=== PATIENT | female | born 1980 | race Caucasian/White ===

== ENCOUNTER 2023-08-19 15:59 | Emergency (ER) | payer OTHER, SELFPAY ==
[2023-08-19 16:05] VITALS: BP 136/85; PULSE 82; RESP 16; TEMP 36.8; O2SAT 99; BMI 34.2
--- NOTE | 2023-08-19 16:09 | ED.GENADUL1 ---
HPI - General Adult General Chief complaint: Upper Respiratory Infection Stated complaint: poss strep throat Time Seen by Provider: 08/19/23 16:01 Source: patient Mode of arrival: walk-in Limitations: no limitations History of Present Illness HPI narrative: [age] year old female presents for sore throat. It started yesterday and she is worried about strep throat. She saw a white spot in her throat. She complains of some swollen lymph nodes as well in her neck. No productive cough. She is not short of breath. Related Data Home Medications Medication Instructions Recorded Confirmed buspirone 7.5 mg tablet 7.5 mg PO DAILY 08/19/23 08/19/23 citalopram 40 mg tablet 40 mg PO DAILY 08/19/23 08/19/23 cyanocobalamin (vitamin B-12) 1,000 mcg PO DAILY 08/19/23 08/19/23 1,000 mcg tablet ergocalciferol (vitamin D2) 1,250 1,250 mcg PO DAILY 08/19/23 08/19/23 mcg (50,000 unit) capsule omeprazole 40 mg capsule,delayed 40 mg PO DAILY 08/19/23 08/19/23 release semaglutide 1 mg/dose (4 mg/3 mL) 1 mg subcut .weekly 08/19/23 08/19/23 subcutaneous pen injector (Ozempic) Previous Rx's Medication Instructions Recorded clindamycin HCl 300 mg capsule 300 mg PO Q6H 10 days #40 caps 08/19/23 Allergies Allergy/AdvReac Type Severity Reaction Status Date / Time amoxicillin AdvReac Mild Verified 08/19/23 16:03 azithromycin [From Zithromax] AdvReac Mild Verified 08/19/23 16:03 Penicillins AdvReac Mild Verified 08/19/23 16:03 Review of Systems ROS Narrative A ten point review of systems is negative except as noted above. PFSH PFSH Social History Smoking status: Former smoker Exam Narrative Exam Narrative: Nurses note and vital signs reviewed and patient is not hypoxic. General: The patient appears well and in no apparent distress. Patient is resting comfortably on cart. Skin: Warm, dry, no pallor noted. There is no rash noted. Head: Normocephalic, atraumatic Eye: Normal conjunctiva, no drainage Ears, Nose, Mouth, and Throat: oral mucosa is moist. Nares patent. exudate present on the right tonsil. No peritonsillar swelling or uvular deviation. She has bilateral cervical adenopathy. Cardiovascular: Regular Rate and Rhythm Respiratory: Patient is in no distress, no accessory muscle use, lungs are clear to auscultation, no wheezing, rales or rhonchi Back: non-tender GI: soft and nontender Musculoskeletal: The patient has no evidence of calf tenderness, no pitting edema, symmetrical pulses noted bilaterally Neurological: A&O, normal speech Psychiatric: Cooperative Constitutional Vital Signs, click to edit/add: Last Vital Signs Temp 98.3 F 08/19/23 16:05 Pulse 82 08/19/23 16:05 Resp 16 08/19/23 16:05 BP 136/85 08/19/23 16:05 Pulse Ox 99 08/19/23 16:05 O2 Del Method Room Air 08/19/23 16:05 Course Vital Signs Vital signs: Vital Signs Temperature 98.3 F 08/19/23 16:05 Pulse Rate 82 08/19/23 16:05 Respiratory Rate 16 08/19/23 16:05 Blood Pressure 136/85 08/19/23 16:05 Pulse Oximetry 99 08/19/23 16:05 Oxygen Delivery Method Room Air 08/19/23 16:05 Temperature 98.3 F 08/19/23 16:05 Pulse Rate 82 08/19/23 16:05 Respiratory Rate 16 08/19/23 16:05 Blood Pressure 136/85 08/19/23 16:05 Pulse Oximetry 99 08/19/23 16:05 Oxygen Delivery Method Room Air 08/19/23 16:05 Medical Decision Making [facility] Narrative Medical decision making narrative: strep test is negative. She's given IM Decadron and prescribed clindamycin. Treatment diagnosis and follow-up were discussed with the patient. there is no clinical suspicion of peritonsillar abscess. Differential Diagnosis Differential Diagnosis: strep throat, peritonsillar abscess, viral pharyngitis Lab Data Lab results reviewed: Yes I reviewed the patient's lab results Labs: Lab Results 08/19/23 Range/Units 16:05 Streptococcus Screen Negative Discharge Plan Discharge Chief Complaint: Upper Respiratory Infection Clinical Impression: Acute tonsillitis Patient Disposition: Home, Self-Care Time of Disposition Decision: 16:25 Condition: Good Mode of Transportation: Private Vehicle Prescriptions / Home Meds: New clindamycin HCl 300 mg capsule 300 mg PO Q6H 10 Days Qty: 40 0RF No Action citalopram 40 mg tablet 40 mg PO DAILY buspirone 7.5 mg tablet 7.5 mg PO DAILY cyanocobalamin (vitamin B-12) 1,000 mcg tablet 1,000 mcg PO DAILY ergocalciferol (vitamin D2) 1,250 mcg (50,000 unit) capsule 1,250 mcg PO DAILY omeprazole 40 mg capsule,delayed release(DR/EC) 40 mg PO DAILY Ozempic 1 mg/dose (4 mg/3 mL) pen injector 1 mg SUBCUT .weekly Instructions: Tonsillitis (ED) Stand Alone Forms: Portal Instructions Referrals: [facility] [Primary Care Provider] - 1 week
[2023-08-19 16:18] LABS: Internal Control Within Normal Limits; Strep A Antigen Screen Negative
[2023-08-19] MEDS: DEXAMETHASONE SOD PHOS 10 MG/ML VIAL IM (16:49)
== END 2023-08-19 16:53 | disposition home or self-care (01) ==
PROVIDERS: Emergency Provider Emergency Medicine
DX: J03.90 Acute tonsillitis, unspecified (principal); Z87.891 Personal history of nicotine dependence; Z79.899 Other long term (current) drug therapy
CPT/HCPCS: 87070; 87880; 96372; 99284; J1100

== ENCOUNTER 2024-06-23 07:54 | Emergency (ER) | payer OTHER, SELFPAY ==
[2024-06-23 08:00] VITALS: BP 138/92; PULSE 81; TEMP 36.9; O2SAT 100; BMI 37.3
--- NOTE | 2024-06-23 08:06 | XR_ITS ---
The [address] [address] Patient Name: CORNELL HERNÁNDEZ MRN: [id number] date: 1980 Sex: F Assigned Patient Location: ED.MAIN Current Patient Location: ED.MAIN Accession/Order Number: [id number] Exam Date: 06/23/2024 08:18 Report Date: 06/23/2024 08:45 At the request of: TK LOONEY Procedure: XR chest 2V EXAMINATION: XR chest 2V HISTORY: cough COMPARISON: No relevant comparison available. TECHNIQUE: PA and lateral FINDINGS: LUNGS: No significant pulmonary parenchymal abnormalities. VASCULATURE: No increased pulmonary vasculature. PLEURA: No pneumothorax, effusion, or pleural thickening. CARDIAC: No cardiomegaly or cardiac silhouette abnormality. MEDIASTINUM: No visible mass or adenopathy. BONES: No fracture or visible bone lesion. OTHER: Negative. XR/XR chest 2V IMPRESSION: No acute cardiopulmonary process Electronically authenticated by: MEI GILES Date: 06/23/2024 08:45
--- OUTSIDE RECORDS SUMMARY | 2024-06-23 08:22 | XMS_ITS | CCD ---
Author Organization [facility] Inform ion [facility] Care Team Providers Care Plant And Instrument Engineer Name Role Phone FAMILY, HEALTH SERVICES Primary Care Unavaila ble PAY, DR VENTURA Attending Unavailable PAY, DR VENTURA Admitting Unavailable PAY, DR VENTURA Consulting Unavailable MISC, DR SOLORZANO Attending Unavailable MISC, DR SOLORZANO Admitting Unavailable MISC, DR SOLORZANO Consulting Unavailable [facility] Primary Care Unavaila ble MISC, DR SOLORZANO Admitting Unavailable MISC, DR SOLORZANO Consulting Unavailable [facility] Primary Care Unavaila ble MISC, DR SOLORZANO Attending Unavailable [facility] Primary Care Unavaila ble CELINA, WANG ESPINOZA Consulting Unavailable PAY, DR VENTURA Attending Unavailable PAY, DR VENTURA Admitting Unavailable Osvaldo, SEWING PATTERN LAYOUT TECHNICIAN-C Shady Chatterjee Attending Provider NON STAFF Primary Care Provider Unavailabl e DO Aryan Borges Attending Provider [phone] [facility], Services Primary Care Provider MD Jesus Reeder Attending Provider [facility] Primary Care Provider [phone] DO Washington Khan Attending Provider DO Aryan Borges Other Provider Jesus Reeder Attending Unavailable [facility] Primary Care Unavaila Jesus Sierra Admitting Unavailable Aryan Borges Consulting Unavailable [facility] Primary Care Unavaila ble [facility], Froylan Admitting Unavailable [facility], Froylan Attending Unavailable Aryan Borges Consulting Unavailable [facility] Primary Care Unavaila ble Washington Khan Admitting Unavailable Washington Khan Attending Unavailable Allergies Allergy Classification Reported Allergen(s) Allergy Type Date of Onset Reaction(s) Facility (1 source) Amoxicillin Drug Allergy [facility] (1 source) Azithromycin Drug Allergy [facility] (1 source) Penicillin Drug Allergy [facility] (3 sources) Azithromycin; Translations: [azithromycin] Drug Allergy 3 Difficulty Breathing, Difficulty Breathing, shortness of breath [facility] (3 sources) Penicillins; Translations: [Penicillins] Allergy to substance 3 [facility] (2 sources) Penicillin; Translations: [penicillin G] Drug Allergy 1 [facility] Medications Current Medications Medication Drug Class(es) Dates Sig (Normalized) Sig (Original) busPIRone hydrochloride 7.5 mg oral tablet (2 sources) Start: 05-14-2023 take 7.5 mg by mouth twice daily Buspirone Active 7.5 MG PO Twice daily May 14, 2023 12:00am citalopram 40 mg oral tablet (2 sources) Serotonin Reuptake Inhibitor Start: 05-14-2023 take 40 mg by mouth once daily Citalopram Active 40 MG PO Daily May 14, 2023 12:00am ergocalciferol 1.25 mg oral capsule (2 sources) Provitamin D2 Compound Start: 05-14-2023 take 1250 ug by mouth every week Ergocalciferol (Vitamin D2) Active 1250 MCG PO every week May 14, 2023 12:00am ibuprofen 800 mg oral tablet (2 sources) Nonsteroidal Anti-inflammatory Drug Start: 05-14-2023 take 800 mg by mouth three times daily Ibuprofen Active 800 MG PO Three times daily May 14, 2023 12:00am Multivitamin preparation (2 sources) Start: 05-14-2023 take 1 tablet by mouth once daily Multivitamin Active 1 TAB PO Daily May 14, 2023 12:00am omeprazole 40 mg delayed release oral capsule (2 sources) Proton Pump Inhibitor Start: 05-14-2023 take 40 mg by mouth once daily Omeprazole Active 40 MG PO Daily May 14, 2023 12:00am Semaglutide (2 sources) Start: 05-14-2023 inject 1 mg by subcutaneous injection every week Semaglutide (Ozempic) 1 mg/dose (4 mg/3 mL) pen injector Active 1 MG SUBCUT every week May 14, 2023 12:00am vitamin b12 1 mg oral tablet (2 sources) Vitamin B12 Start: 05-14-2023 take 1000 ug by mouth once daily Cyanocobalamin (Vitamin B-12) Active 1000 MCG PO Daily May 14, 2023 12:00am Problems Active Problems Problem Classification Problem Date Documented Da te Episodic/Chronic Diabetes mellitus without complication (2 sources) Type 2 diabetes mellitus without complications; Translations: [TYPE 2 DM WITHOUT COMPLICATIONS] Onset: 1 Chronic Mood disorders (1 source) Major depressive disorder, single episode, unspecified; Translations: [JANEL DEPRESS D/O SINGLE EPIS UNS] Onset: 1 Chronic Other aftercare (1 source) 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; Translations: [OTH VACUUM SPINDLE SANDER CURRENT DRUG THERAPY] Onset: 2 Episodic Other connective tissue disease (3 sources) Pain in right thigh; Translations: [PAIN IN RIGHT THIGH] Onset: 2 Episodic Other nutritional; endocrine; and metabolic disorders (1 source) Abnormal weight gain; Translations: [Abnormal weight gain] Onset: 4 Episodic Phlebitis; thrombophlebitis and thromboembolism (1 source) Phlebitis and thrombophlebitis of superficial vessels of right lower extremity; Translations: [PHLEBITIS AND TP SUP VES RT LOW EXT] Onset: 2 Episodic Substance-related disorders (1 source) Nicotine dependence, cigarettes, uncomplicated; Translations: [NICOTINE DEPEND CIGARETTES UNCOMP] Onset: 2 Chronic Unclassified (3 sources) CONTACT W/AND (SUSP) EXPOS COVID-19; Translations: [CONTACT W/AND (SUSP) EXPOS COVID-19] Onset: 1 Unclassified (1 source) Diarrhea, unspecified; Translations: [Diarrhea, unspecified] Onset: 3 Unclassified (1 source) Encounter for screening for cardiovascular disorders; Translations: [Encounter for screening for cardiovascular disorders] Onset: 3 Past or Other Problems Problem Classification Problem Date Documented Da te Episodic/Chronic Disorders of teeth and jaw (5 sources) Jaw pain; Translations: [Periapical abscess without sinus] Onset: 03-03-2021 Episodic Other aftercare (1 source) 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; Translations: [VACUUM SPINDLE SANDER CURRENT USE OF INSULIN] Onset: 03-07-2021 Episodic Residual codes; unclassified (1 source) Acquired absence of other specified parts of digestive tract; Translations: [ACQ ABSENCE OTH PART DIGESTV TRACT] Onset: 03-07-2021 Episodic Residual codes; unclassified (1 source) Acquired absence of both cervix and uterus; Translations: [ACQUIRED ABSENCE BOTH CERVIX AND UTERUS] Onset: 03-07-2021 Episodic Unclassified (1 source) CONTACT W/AND (SUSP) EXPOS COVID-19; Translations: [CONTACT W/AND (SUSP) EXPOS COVID-19] Onset: 07-04-2021 Results Test Name Value Interpretation Reference Range Facility Alanine aminotransferase [En zymatic activity/volume] in Serum or PlasmaOrdered By: Aryan Borges on 12-18-2023 ALT [Catalytic activity/Vol] 16 U/L 7-52 [facility] Albumin [Mass/volume] in Ser um or Plasma by Bromocresol green (BCG) dye binding methoOrdered By: Aryan Borges on 12-18-2023 Albumin BCG dye [Mass/Vol] 4.4 g/dL 3.5-5.7 [facility] Alkaline phosphatase [Enzyma tic activity/volume] in Serum or PlasmaOrdered By: Aryan Borges on 12-18-2023 ALP [Catalytic activity/Vol] 60 U/L 34-104 [facility] Aspartate aminotransferase [ Enzymatic activity/volume] in Serum or PlasmaOrdered By: Aryan Borges on 12-18-2023 AST [Catalytic activity/Vol] 16 U/L 13-39 [facility] Bilirubin.total [Mass/volume ] in Serum or PlasmaOrdered By: Aryan Borges on 12-18-2023 Bilirubin [Mass/Vol] 0.6 mg/dL 0.3-1.0 [facility] Calcium [Mass/volume] in Ser um or PlasmaOrdered By: Aryan Borges on 12-18-2023 Calcium [Mass/Vol] 9.4 mg/dL 8.6-10.3 [facility] Carbon dioxide, total [Moles /volume] in Serum or PlasmaOrdered By: Aryan Borges on 12-18-2023 CO2 [Moles/Vol] 27.4 mmol/L 21.0-31.0 [facility] Chloride [Moles/volume] in S roseline or PlasmaOrdered By: Aryan Borges on 12-18-2023 Chloride [Moles/Vol] 105 mmol/L 98-107 [facility] Cholesterol [Mass/volume] in Serum or PlasmaOrdered By: Aryan Borges on 12-18-2023 Cholesterol [Mass/Vol] 194 mg/dL 140-200 [facility] Comment on above: Chol less than 200 m g/dl low riskChol 201-239 mg/dl borderline riskChol 240 mg/dl and greater high risk Cholesterol in LDL Calc [Mas s/Vol]Ordered By: Aryan Borges on 12-18-2023 Cholesterol in LDL [Mass/Vol] 124 mg/dL 0-100 [facility] Comment on above: LDL ATP III CLASSIFI CATIONLDL less than 100 mg/dL OptimalLDL 100-129 mg/dL Near or above optimalLDL 130-159 mg/dL Borderline highLDL 160-189 mg/dL HighLDL greater than 189 mg/dL Very high Cholesterol in LDL [Mass/vol ume] in Serum or PlasmaOrdered By: Aryan Borges on 12-18-2023 Cholesterol in LDL [Mass/Vol] 142 mg/dL 0-100 [facility] Comment on above: LDL ATP III CLASSIFI CATIONLDL less than 100 mg/dL OptimalLDL 100-129 mg/dL Near or above optimalLDL 130-159 mg/dL Borderline highLDL 160-189 mg/dL HighLDL greater than 189 mg/dL Very high Cholesterol in VLDL Calc [Ma ss/Vol]Ordered By: Aryan Borges on 12-18-2023 Cholesterol in VLDL [Mass/Vol] 18 mg/dL [facility] Comprehensive Metabolic Pane colby 12-18-2023 Albumin [Mass/Vol] 4.4 g/dL Normal 3.5-5.7 [facility] Comment on above: Order Comment: Alyo n for Exam Type 2 diabetes mellitus without complications Reason for Exam Weight gain Performed By: #### T 4F, LIPID, LDLD, CMP, TSH3 wRFLX #### [facility] [address] Albumin/Globulin [Mass ratio] 1.6 {ratio} Normal [facility] Comment on above: Order Comment: Reaso n for Exam Type 2 diabetes mellitus without complications Reason for Exam Weight gain Performed By: #### T 4F, LIPID, LDLD, CMP, TSH3 wRFLX #### [facility] [address] [place] [id number] [facility] ALP [Catalytic activity/Vol] 60 U/L Normal 34-104 [facility] Comment on above: Order Comment: Reaso n for Exam Type 2 diabetes mellitus without complications Reason for Exam Weight gain Performed By: #### T 4F, LIPID, LDLD, CMP, TSH3 wRFLX #### [facility] [address] ALT [Catalytic activity/Vol] 16 U/L Normal 7-52 [facility] Comment on above: Order Comment: Reaso n for Exam Type 2 diabetes mellitus without complications Reason for Exam Weight gain Performed By: #### T 4F, LIPID, LDLD, CMP, TSH3 wRFLX #### [facility] [address] [place] [address] Anion gap [Moles/Vol] 10.1 mmol/L Normal 6.0-15.0 [facility] Comment on above: Order Comment: Reaso n for Exam Type 2 diabetes mellitus without complications Reason for Exam Weight gain Performed By: #### T 4F, LIPID, LDLD, CMP, TSH3 wRFLX #### [facility] [address] [place], [place] [id number] [place] AST [Catalytic activity/Vol] 16 U/L Normal 13-39 [facility] Comment on above: Order Comment: Reaso n for Exam Type 2 diabetes mellitus without complications Reason for Exam Weight gain Performed By: #### T 4F, LIPID, LDLD, CMP, TSH3 wRFLX #### [facility] [address] [place], [place] [id number] [place] Bilirubin [Mass/Vol] 0.6 mg/dL Normal 0.3-1.0 [facility] Comment on above: Order Comment: Reaso n for Exam Type 2 diabetes mellitus without complications Reason for Exam Weight gain Performed By: #### T 4F, LIPID, LDLD, CMP, TSH3 wRFLX #### [facility] [address] [place] [address] [place] Calcium [Mass/Vol] 9.4 mg/dL Normal 8.6-10.3 [facility] Comment on above: Order Comment: Reaso n for Exam Type 2 diabetes mellitus without complications Reason for Exam Weight gain Performed By: #### T 4F, LIPID, LDLD, CMP, TSH3 wRFLX #### [facility] [address] Chloride [Moles/Vol] 105 mmol/L Normal 98-107 [facility] Comment on above: Order Comment: Reaso n for Exam Type 2 diabetes mellitus without complications Reason for Exam Weight gain Performed By: #### T 4F, LIPID, LDLD, CMP, TSH3 wRFLX #### [address] CO2 [Moles/Vol] 27.4 mmol/L Normal 21.0-31.0 [facility] Comment on above: Order Comment: Reaso n for Exam Type 2 diabetes mellitus without complications Reason for Exam Weight gain Performed By: #### T 4F, LIPID, LDLD, CMP, TSH3 wRFLX #### [facility] [address] [place] [address] Creatinine [Mass/Vol] 0.74 mg/dL Normal 0.60-1.20 [facility] Comment on above: Order Comment: Reaso n for Exam Type 2 diabetes mellitus without complications Reason for Exam Weight gain Performed By: #### T 4F, LIPID, LDLD, CMP, TSH3 wRFLX #### [place] [address] [place] GFR/1.73 sq M.predicted MDRD (S/P/Bld) [Vol rate/Area] mL/min/{1.73_m2} Normal [facility] Comment on above: Order Comment: Reaso n for Exam Type 2 diabetes mellitus without complications Reason for Exam Weight gain Performed By: #### T 4F, LIPID, LDLD, CMP, TSH3 wRFLX #### [facility] [address] [place] [id number] [place] Globulin (S) [Mass/Vol] 2.8 g/dL Normal T he [facility] Comment on above: Order Comment: Reaso n for Exam Type 2 diabetes mellitus without complications Reason for Exam Weight gain Performed By: #### T 4F, LIPID, LDLD, CMP, TSH3 wRFLX #### [facility] [address] [place] [id number] [facility] Glucose [Mass/Vol] 91 mg/dL Normal 70-100 [facility] Comment on above: Order Comment: Reaso n for Exam Type 2 diabetes mellitus without complications Reason for Exam Weight gain Result Comment: [place] Glucose Reference Range is dependent on time and content of last meal. Glucose of more than 200 mg/dL in a nonstressed, ambulatory subject supports the diagnosis of Diabetes Mellitus. ADA recommended reference range Performed By: #### T 4F, LIPID, LDLD, CMP, TSH3 wRFLX #### [facility] [address] [place] [address] [place] Potassium [Moles/Vol] 4.5 mmol/L Normal 3.5-5.1 [facility] Comment on above: Order Comment: Reaso n for Exam Type 2 diabetes mellitus without complications Reason for Exam Weight gain Performed By: #### T 4F, LIPID, LDLD, CMP, TSH3 wRFLX #### [facility] [address] [place] [id number] [place] Protein [Mass/Vol] 7.2 g/dL Normal 6.4-8.9 [facility] Comment on above: Order Comment: Reaso n for Exam Type 2 diabetes mellitus without complications Reason for Exam Weight gain Performed By: #### T 4F, LIPID, LDLD, CMP, TSH3 wRFLX #### [facility] [address] [place] [id number] [place] Sodium [Moles/Vol] 138 mmol/L Normal 136-145 [facility] Comment on above: Order Comment: Reaso n for Exam Type 2 diabetes mellitus without complications Reason for Exam Weight gain Performed By: #### T 4F, LIPID, LDLD, CMP, TSH3 wRFLX #### [facility] [address] [place] [id number] [place] Urea nitrogen [Mass/Vol] 23 mg/dL Normal 7-25 [facility] Comment on above: Order Comment: Reaso n for Exam Type 2 diabetes mellitus without complications Reason for Exam Weight gain Performed By: #### T 4F, LIPID, LDLD, CMP, TSH3 wRFLX #### [facility] [address] Creatinine [Mass/volume] in Serum or PlasmaOrdered By: Aryan Borges on 12-18-2023 Creatinine [Mass/Vol] 0.74 mg/dL 0.60-1.20 [facility] Free T4 (Free Thyroxine)on 0 12-18-2023 Free T4 [Mass/Vol] 0.53 ng/dL Low 0.61-1.12 [facility] Comment on above: Order Comment: Reaso n for Exam Type 2 diabetes mellitus without complications Reason for Exam Weight gain Performed By: #### C MP, CBC, LDLD, LIPID, ESR, CRP #### [facility] [address] [place] [id number] [facility] Globulin Calc (S) [Mass/Vol] Ordered By: Aryan Borges on 12-18-2023 Globulin (S) [Mass/Vol] 2.8 g/dL [facility] Glucose [Mass/volume] in Ser um or PlasmaOrdered By: Aryan Borges on 12-18-2023 Glucose [Mass/Vol] 91 mg/dL 70-100 [facility] Comment on above: ADA recommended refe rence rangeRandom Glucose Reference Range is dependent on time and content of last meal. Glucose of more than 200 mg/dL in a nonstressed, ambulatory subject supports the diagnosis of Diabetes Mellitus. LDL Cholesterol Measuredon 0 12-18-2023 LDL Cholesterol Measured 142 mg/dL High 0-100 [facility] Comment on above: Order Comment: Reaso n for Exam Type 2 diabetes mellitus without complications Reason for Exam Weight gain Result Comment: LDL ATP III CLASSIFICATION LDL less than 100 mg/dL Optimal LDL 100-129 mg/dL Near or above optimal LDL 130-159 mg/dL Borderline high LDL 160-189 mg/dL High LDL greater than 189 mg/dL Very high Performed By: #### C MP, CBC, LDLD, LIPID, ESR, CRP #### [facility] [address] [place] [id number] [facility] Lipid Panelon 12-18-2023 Cholesterol [Mass/Vol] 194 mg/dL Normal 140-200 [facility] Comment on above: Order Comment: Reaso n for Exam Type 2 diabetes mellitus without complications Reason for Exam Weight gain Result Comment: Chol less than 200 mg/dl low risk Chol 201-239 mg/dl borderline risk Chol 240 mg/dl and greater high risk Performed By: #### T 4F, LIPID, LDLD, CMP, TSH3 wRFLX #### [facility] [address] [place] [address] [place] Cholesterol in HDL [Mass/Vol] 52 mg/dL Normal 23-92 [facility] Comment on above: Order Comment: Reaso n for Exam Type 2 diabetes mellitus without complications Reason for Exam Weight gain Result Comment: HDL CHOL ATP-III CLASSIFICATION Cardiovascular Risk HDL > or equal to 60 mg/dL LOW HDL < 40 mg/dL HIGH Performed By: #### T 4F, LIPID, LDLD, CMP, TSH3 wRFLX #### [facility] [address] [place] [address] [facility] Cholesterol.total/Choles terol in HDL [Mass ratio] 3.7 {ratio} Normal <5.0 [facility] Comment on above: Order Comment: Reaso n for Exam Type 2 diabetes mellitus without complications Reason for Exam Weight gain Performed By: #### T 4F, LIPID, LDLD, CMP, TSH3 wRFLX #### [facility] [address] [place] [id number] [facility] LDL Cholesterol,Calculated 124 mg/dL High 0-100 [facility] Comment on above: Order Comment: Reaso n for Exam Type 2 diabetes mellitus without complications Reason for Exam Weight gain Result Comment: LDL ATP III CLASSIFICATION LDL less than 100 mg/dL Optimal LDL 100-129 mg/dL Near or above optimal LDL 130-159 mg/dL Borderline high LDL 160-189 mg/dL High LDL greater than 189 mg/dL Very high Performed By: #### T 4F, LIPID, LDLD, CMP, TSH3 wRFLX #### [facility] [address] [place] [address] [place] Triglyceride w/Reflex 92 mg/dL Normal 0-149 [facility] Comment on above: Order Comment: Reaso n for Exam Type 2 diabetes mellitus without complications Reason for Exam Weight gain Result Comment: TRIG ATP III CLASSIFICATION TRIG less than 150 mg/dL Normal TRIG 150-199 mg/dL Borderline high TRIG 200-500 mg/dL High TRIG greater than 500 mg/dL Very high Standard traceable to the Center for Disease Conrtrol and Prevention (CDC) test method. Performed By: #### T 4F, LIPID, LDLD, CMP, TSH3 wRFLX #### [facility] [address] VLDL CHOLESTEROL 18 mg/dL Normal [facility] Comment on above: Order Comment: Reaso n for Exam Type 2 diabetes mellitus without complications Reason for Exam Weight gain Performed By: #### T 4F, LIPID, LDLD, CMP, TSH3 wRFLX #### [facility] [address] No Panel InformationOrdered By: Aryan Borges on 12-18-2023 Estimated GFR (CKD-EPI) > 60.0 mL/Min [facility] Creatinine Clearance (Chem N/A [facility] Potassium [Moles/volume] in Serum or PlasmaOrdered By: Aryan Borges on 12-18-2023 Potassium [Moles/Vol] 4.5 mmol/L 3.5-5.1 [facility] Protein [Mass/volume] in Ser um or PlasmaOrdered By: Aryan Borges on 12-18-2023 Protein [Mass/Vol] 7.2 g/dL 6.4-8.9 [facility] Serum or plasma albumin/glob ulin mass ratioOrdered By: Aryan Borges on 12-18-2023 Albumin/Globulin [Mass ratio] 1.6 {ratio} [facility] Serum or plasma anion gap de terminationOrdered By: Aryan Borges on 12-18-2023 Anion gap [Moles/Vol] 10.1 mmol/L 6.0-15.0 [facility] Serum or plasma high density lipoprotein (HDL) cholesterol measurementOrdered By: Aryan Borges on 12-18-2023 Cholesterol in HDL [Mass/Vol] 52 mg/dL - [facility] Comment on above: HDL CHOL ATP-III CLA SSIFICATION Cardiovascular RiskHDL > or equal to 60 mg/dL LOWHDL < 40 mg/dL HIGH Serum or plasma total choles terol/high density lipoprotein (HDL) cholesterol mass ratOrdered By: Aryan Borges on 12-18-2023 Cholesterol.total/Choles terol in HDL [Mass ratio] 3.7 {ratio} <5.0 [facility] Sodium [Moles/volume] in Ser um or PlasmaOrdered By: Aryan Borges on 12-18-2023 Sodium [Moles/Vol] 138 mmol/L 136-145 [facility] Thyroid Stim Hormone w/Rflxo n 12-18-2023 Thyroid Stim Hormone w/Rflx 0.93 u[iU]/mL Normal 0.45-5.33 [facility] Comment on above: Order Comment: Reaso n for Exam Type 2 diabetes mellitus without complications Reason for Exam Weight gain Result Comment: PERF ORMED BY: [place] [address] PATHOLOGIST [employer] SAMARA KIM M.D. Performed By: #### C MP, CBC, LDLD, LIPID, ESR, CRP #### [address] Thyrotropin [Units/volume] i n Serum or PlasmaOrdered By: Aryan Borges on 12-18-2023 TSH Qn 0.93 m[IU]/L 0.45-5.33 [facility] Thyroxine (T4) free [Mass/vo lume] in Serum or PlasmaOrdered By: Aryan Borges on 12-18-2023 Free T4 [Mass/Vol] 0.53 ng/dL 0.61-1.12 [facility] Triglyceride [Mass/volume] i n Serum or PlasmaOrdered By: Aryan Borges on 12-18-2023 Triglyceride [Mass/Vol] 92 mg/dL 0-149 [facility] Comment on above: TRIG ATP III CLASSIF ICATIONTRIG less than 150 mg/dL NormalTRIG 150-199 mg/dL Borderline highTRIG 200-500 mg/dL High TRIG greater than 500 mg/dL Very highStandard traceable to the Center for Disease Conrtrol and Prevention (CDC) test method. Urea nitrogen [Mass/volume] in Serum or PlasmaOrdered By: Aryan Borges on 12-18-2023 Urea nitrogen [Mass/Vol] 23 mg/dL 02-12 [facility] Glucose Glucometer (BldC) [M ass/Vol]Ordered By: Jesus Reeder on 05-15-2023 Glucose [Mass/Vol] 85 mg/dL [facility] Comment on above: Random Glucose Refer ence Range is dependent on time and content of last meal. Glucose of more than 200 mg/dL in a nonstressed, ambulatory subject supports the diagnosis of Diabetes Mellitus. Glucose Poct Glucometerson 1 Glucose [Mass/Vol] 85 mg/dL Normal [facility] Comment on above: Result Comment: [place] om Glucose Reference Range is dependent on time and content of last meal. Glucose of more than 200 mg/dL in a nonstressed, ambulatory subject supports the diagnosis of Diabetes Mellitus. PERFORMED BY: [facility] [address] [place] [address] PATHOLOGIST [employer] SAMARA KIM M.D. Performed By: #### G AALIYAH #### Point of Care testing , [place] 05-15-2023 L -- ---- Specimen: [id number] Received: 05/15/23 Status: FELIZ Feldman Num: [id number] Spec Type: Surgical Subm Dr: Jesus Reeder MD Tissues: A Colon Biopsy (RANDOM COLON BX) Procedures: HE/2, Gross/Micro L4 ---- Age/ Patient Sex Location Account Attending Physician ---- ChikiSilvia M /F [id number] Jesus Reeder MD ---- SPEC NUM: [id number] RECD: 05/15/23 STATUS: FELIZ KASIE NUM: [id number] JENNA: 05/15/23 DR: Jesus Reeder MD ENTERED: 05/15/23 [facility] DR: ADELA TYPE: Surgical DEPT: S ORDERED: HE/2, Gross/Micro L4 ORDERED: HE/2, Gross/Micro L4 Pathological Diagnosis Random colon biopsy: - Colonic mucosa with adequately preserved mucosal glandular architecture except mild stromal edema, otherwise also without any abnormal stromal chronic inflammation, or any other specific or diagnostic abnormality identified in both fragments Clinical Information Family history of Crohn's, rule out microscopic colitis Gross Description Received in formalin labeled with the patient's name, date of and random colon biopsy are two correa tissues measuring 0.3 x 0.1 x 0.1 cm and 0.6 x 0.2 x 0.1 cm. Entirely submitted in one cassette labeled A1. Microscopic Description Two H E slides reviewed. The microscopic examination confirms the diagnosis. CPT Codes 65088 ---- ---- Specimen: [id number] Received: 05/15/23 Status: FELIZ Feldman Num: [id number] Spec Type: Surgical Subm Dr: Jesus Reeder MD Tissues: A Colon Biopsy (RANDOM COLON BX) Procedures: HE/2, Gross/Micro L4 ---- Patient: Silvia Monet [id number] (Continued) ---- Signed (signature on file) Geoffrey-Kieran Lyon MD 05/16/23 1814 Normal [facility] Alanine aminotransferase [En zymatic activity/volume] in Serum or PlasmaOrdered By: Aryan Borges on 01-29-2023 ALT [Catalytic activity/Vol] 16 U/L 7-52 [facility] Albumin [Mass/volume] in Ser um or Plasma by Bromocresol green (BCG) dye binding methoOrdered By: Aryan Borges on 01-29-2023 Albumin BCG dye [Mass/Vol] 4.2 g/dL 3.5-5.7 [facility] Alkaline phosphatase [Enzyma tic activity/volume] in Serum or PlasmaOrdered By: Aryan Borges on 01-29-2023 ALP [Catalytic activity/Vol] 66 U/L 34-104 [facility] Aspartate aminotransferase [ Enzymatic activity/volume] in Serum or PlasmaOrdered By: Aryan Borges on 01-29-2023 AST [Catalytic activity/Vol] 19 U/L 13-39 [facility] Basophils Auto (Bld) [#/Vol] Ordered By: Aryan Borges on 01-29-2023 Basophils (Bld) [#/Vol] 0.1 10*3/uL 0.0-0.2 [facility] Basophils/100 WBC Auto (Bld) Ordered By: Aryan Borges on 01-29-2023 Basophils/100 WBC (Bld) 0.8 % . [facility] Bilirubin.total [Mass/volume ] in Serum or PlasmaOrdered By: Aryan Borges on 01-29-2023 Bilirubin [Mass/Vol] 0.6 mg/dL 0.3-1.0 [facility] C reactive protein [Mass/vol ume] in Serum or PlasmaOrdered By: Aryan Borges on 01-29-2023 CRP [Mass/Vol] 0.5 mg/dL 0.0-0.5 [facility] C-Reactive Proteinon 023 C-Reactive Protein 0.5 mg/dL Normal 0.0-0.5 [facility] Comment on above: Performed By: #### C MP, CBC, LDLD, LIPID, ESR, CRP #### [facility] [address] Calcium [Mass/volume] in Ser um or PlasmaOrdered By: Aryan Borges on 01-29-2023 Calcium [Mass/Vol] 9.2 mg/dL 8.6-10.3 [facility] Carbon dioxide, total [Moles /volume] in Serum or PlasmaOrdered By: Aryan Borges on 01-29-2023 CO2 [Moles/Vol] 29.0 mmol/L 21.0-31.0 [facility] Chloride [Moles/volume] in S roseline or PlasmaOrdered By: Aryan Borges on 01-29-2023 Chloride [Moles/Vol] 105 mmol/L 98-107 [facility] Cholesterol [Mass/volume] in Serum or PlasmaOrdered By: Aryan Borges on 01-29-2023 Cholesterol [Mass/Vol] 173 mg/dL 140-200 [facility] Comment on above: Chol less than 200 m g/dl low riskChol 201-239 mg/dl borderline riskChol 240 mg/dl and greater high risk Cholesterol in LDL Calc [Mas s/Vol]Ordered By: Aryan Borges on 01-29-2023 Cholesterol in LDL [Mass/Vol] 111 mg/dL 0-100 [facility] Comment on above: LDL ATP III CLASSIFI CATIONLDL less than 100 mg/dL OptimalLDL 100-129 mg/dL Near or above optimalLDL 130-159 mg/dL Borderline highLDL 160-189 mg/dL HighLDL greater than 189 mg/dL Very high Cholesterol in LDL [Mass/vol ume] in Serum or PlasmaOrdered By: Aryan Borges on 01-29-2023 Cholesterol in LDL [Mass/Vol] 120 mg/dL 0-100 [facility] Comment on above: LDL ATP III CLASSIFI CATIONLDL less than 100 mg/dL OptimalLDL 100-129 mg/dL Near or above optimalLDL 130-159 mg/dL Borderline highLDL 160-189 mg/dL HighLDL greater than 189 mg/dL Very high Cholesterol in VLDL Calc [Ma ss/Vol]Ordered By: Aryan Borges on 01-29-2023 Cholesterol in VLDL [Mass/Vol] 18 mg/dL [facility] Complete Blood Count Auto Di ffon 01-29-2023 Basophils (Bld) [#/Vol] 0.1 10*3/uL Normal 0.0-0.2 [facility] Comment on above: Performed By: #### C MP, CBC, LDLD, LIPID, ESR, CRP #### [address] Basophils/100 WBC (Bld) 0.8 % Normal . T [facility] Comment on above: Performed By: #### C MP, CBC, LDLD, LIPID, ESR, CRP #### [address] Eosinophils (Bld) [#/Vol] 0.2 10*3/uL Normal 0.0-0.45 [facility] Comment on above: Performed By: #### C MP, CBC, LDLD, LIPID, ESR, CRP #### [address] Eosinophils/100 WBC (Bld) 1.9 % Normal . [facility] Comment on above: Performed By: #### C MP, CBC, LDLD, LIPID, ESR, CRP #### [address] Erythrocyte distribution width (RBC) [Ratio] 13.0 % Normal 11.9-15.3 [facility] Comment on above: Performed By: #### C MP, CBC, LDLD, LIPID, ESR, CRP #### [address] Hematocrit (Bld) [Volume fraction] 39.2 % Normal 34.0-46.4 [facility] Comment on above: Performed By: #### C MP, CBC, LDLD, LIPID, ESR, CRP #### [address] Hemoglobin (Bld) [Mass/Vol] 13.3 g/dL Normal 11.8-15.4 [facility] Comment on above: Performed By: #### C MP, CBC, LDLD, LIPID, ESR, CRP #### [place] [address] [place] Lymphocytes (Bld) [#/Vol] 3.4 10*3/uL Normal 1.00-4.8 [facility] Comment on above: Performed By: #### C MP, CBC, LDLD, LIPID, ESR, CRP #### [place] [address] [place] Lymphocytes/100 WBC (Bld) 41.5 % Normal . [facility] Comment on above: Performed By: #### C MP, CBC, LDLD, LIPID, ESR, CRP #### [address] MCH (RBC) [Entitic mass] 30.1 pg Normal 24.7-34.3 [facility] Comment on above: Performed By: #### C MP, CBC, LDLD, LIPID, ESR, CRP #### [address] MCV (RBC) [Entitic vol] 88.6 fL Normal 80-100 [facility] Comment on above: Performed By: #### C MP, CBC, LDLD, LIPID, ESR, CRP #### [address] Mean Corpuscular HGB Conc 34.0 g/dL Normal 32.0-35.0 [facility] Comment on above: Performed By: #### C MP, CBC, LDLD, LIPID, ESR, CRP #### [address] Monocytes (Bld) [#/Vol] 0.5 10*3/uL Normal 0.0-0.8 [facility] Comment on above: Performed By: #### C MP, CBC, LDLD, LIPID, ESR, CRP #### [address] Monocytes/100 WBC (Bld) 5.7 % Normal . [facility] Comment on above: Performed By: #### C MP, CBC, LDLD, LIPID, ESR, CRP #### [address] Neutrophils (Bld) [#/Vol] 4.1 10*3/uL Normal 1.8-7.7 [facility] Comment on above: Performed By: #### C MP, CBC, LDLD, LIPID, ESR, CRP #### [address] Neutrophils/100 WBC (Bld) 50.1 % Normal . [facility] Comment on above: Performed By: #### C MP, CBC, LDLD, LIPID, ESR, CRP #### [address] NRBC% 0.1 /100{WBC} Normal 0-0.5 [facility] Comment on above: Performed By: #### C MP, CBC, LDLD, LIPID, ESR, CRP #### [address] Platelet mean volume (Bld) [Entitic vol] 8.4 fL Normal 6.3-10.7 [facility] Comment on above: Performed By: #### C MP, CBC, LDLD, LIPID, ESR, CRP #### [address] Platelets (Bld) [#/Vol] 257 10*3/uL Normal 150-450 [facility] Comment on above: Performed By: #### C MP, CBC, LDLD, LIPID, ESR, CRP #### [address] RBC (Bld) [#/Vol] 4.42 10*6/uL Normal 3.60-5.00 [facility] Comment on above: Performed By: #### C MP, CBC, LDLD, LIPID, ESR, CRP #### [address] WBC (Bld) [#/Vol] 8.3 10*3/uL Normal 3.8-11.6 [facility] Comment on above: Performed By: #### C MP, CBC, LDLD, LIPID, ESR, CRP #### [address] Comprehensive Metabolic Pane colby 01-29-2023 Albumin [Mass/Vol] 4.2 g/dL Normal 3.5-5.7 [facility] Comment on above: Performed By: #### C MP, CBC, LDLD, LIPID, ESR, CRP #### [address] Albumin/Globulin [Mass ratio] 1.7 {ratio} Normal [facility] Comment on above: Performed By: #### C MP, CBC, LDLD, LIPID, ESR, CRP #### [address] ALP [Catalytic activity/Vol] 66 U/L Normal 34-104 [facility] Comment on above: Performed By: #### C MP, CBC, LDLD, LIPID, ESR, CRP #### [address] ALT [Catalytic activity/Vol] 16 U/L Normal 7-52 [facility] Comment on above: Performed By: #### C MP, CBC, LDLD, LIPID, ESR, CRP #### [address] Anion gap [Moles/Vol] 10.3 mmol/L Normal 6.0-15.0 [facility] Comment on above: Performed By: #### C MP, CBC, LDLD, LIPID, ESR, CRP #### [address] AST [Catalytic activity/Vol] 19 U/L Normal 13-39 [facility] Comment on above: Performed By: #### C MP, CBC, LDLD, LIPID, ESR, CRP #### [address] Bilirubin [Mass/Vol] 0.6 mg/dL Normal 0.3-1.0 [facility] Comment on above: Performed By: #### C MP, CBC, LDLD, LIPID, ESR, CRP #### [address] Calcium [Mass/Vol] 9.2 mg/dL Normal 8.6-10.3 [facility] Comment on above: Performed By: #### C MP, CBC, LDLD, LIPID, ESR, CRP #### [address] Chloride [Moles/Vol] 105 mmol/L Normal 98-107 [facility] Comment on above: Performed By: #### C MP, CBC, LDLD, LIPID, ESR, CRP #### [address] CO2 [Moles/Vol] 29.0 mmol/L Normal 21.0-31.0 [facility] Comment on above: Performed By: #### C MP, CBC, LDLD, LIPID, ESR, CRP #### [address] Creatinine [Mass/Vol] 0.55 mg/dL Low 0.60-1.20 [facility] Comment on above: Performed By: #### C MP, CBC, LDLD, LIPID, ESR, CRP #### [address] GFR/1.73 sq M.predicted MDRD (S/P/Bld) [Vol rate/Area] mL/min/{1.73_m2} Normal [facility] Comment on above: Performed By: #### C MP, CBC, LDLD, LIPID, ESR, CRP #### [address] Globulin (S) [Mass/Vol] 2.5 g/dL Normal T [facility] Comment on above: Performed By: #### C MP, CBC, LDLD, LIPID, ESR, CRP #### [address] Glucose [Mass/Vol] 77 mg/dL Normal 70-100 [facility] Comment on above: Result Comment: [place] Glucose Reference Range is dependent on time and content of last meal. Glucose of more than 200 mg/dL in a nonstressed, ambulatory subject supports the diagnosis of Diabetes Mellitus. ADA recommended reference range Performed By: #### C MP, CBC, LDLD, LIPID, ESR, CRP #### [address] Potassium [Moles/Vol] 4.3 mmol/L Normal 3.5-5.1 [facility] Comment on above: Performed By: #### C MP, CBC, LDLD, LIPID, ESR, CRP #### [address] Protein [Mass/Vol] 6.7 g/dL Normal 6.4-8.9 [facility] Comment on above: Performed By: #### C MP, CBC, LDLD, LIPID, ESR, CRP #### [address] Sodium [Moles/Vol] 140 mmol/L Normal 136-145 [facility] Comment on above: Performed By: #### C MP, CBC, LDLD, LIPID, ESR, CRP #### [address] Urea nitrogen [Mass/Vol] 11 mg/dL Normal 7-25 [facility] Comment on above: Performed By: #### C MP, CBC, LDLD, LIPID, ESR, CRP #### [address] Creatinine [Mass/volume] in Serum or PlasmaOrdered By: Aryan Borges on 01-29-2023 Creatinine [Mass/Vol] 0.55 mg/dL 0.60-1.20 [facility] Eosinophils Auto (Bld) [#/Vo l]Ordered By: Aryan Borges on 01-29-2023 Eosinophils (Bld) [#/Vol] 0.2 10*3/uL 0.0-0.45 [facility] Eosinophils/100 WBC Auto (Bl d)Ordered By: Aryan Borges on 01-29-2023 Eosinophils/100 WBC (Bld) 1.9 % . [facility] Erythrocyte Sedimentation Ra allan 01-29-2023 ESR (Bld) [Velocity] 11 mm/h Normal 0-19 [facility] Comment on above: Result Comment: PERF ORMED BY: [place] [address] PATHOLOGIST [employer] SAMARA KIM M.D. Performed By: #### C MP, CBC, LDLD, LIPID, ESR, CRP #### [address] Erythrocyte distribution wid th Auto (RBC) [Ratio]Ordered By: Aryan Borges on 01-29-2023 Erythrocyte distribution width (RBC) [Ratio] 13.0 % 11.9-15.3 [facility] Erythrocyte sedimentation ra te by Photometric methodOrdered By: Aryan Borges on 01-29-2023 ESR Photometric method (Bld) [Velocity] 11 mm/hr 0-19 [facility] Globulin Calc (S) [Mass/Vol] Ordered By: Aryan Borges on 01-29-2023 Globulin (S) [Mass/Vol] 2.5 g/dL [facility] Glucose [Mass/volume] in Ser um or PlasmaOrdered By: Aryan Borges on 01-29-2023 Glucose [Mass/Vol] 77 mg/dL 70-100 [facility] Comment on above: ADA recommended refe rence rangeRandom Glucose Reference Range is dependent on time and content of last meal. Glucose of more than 200 mg/dL in a nonstressed, ambulatory subject supports the diagnosis of Diabetes Mellitus. Hematocrit Auto (Bld) [Volum e fraction]Ordered By: Aryan Borges on 01-29-2023 Hematocrit (Bld) [Volume fraction] 39.2 % 34.0-46.4 [facility] Hemoglobin [Mass/volume] in BloodOrdered By: Aryan Borges on 01-29-2023 Hemoglobin (Bld) [Mass/Vol] 13.3 g/dL 11.8-15.4 [facility] LDL Cholesterol Measuredon 0 01-29-2023 LDL Cholesterol Measured 120 mg/dL High 0-100 [facility] Comment on above: Result Comment: LDL ATP III CLASSIFICATION LDL less than 100 mg/dL Optimal LDL 100-129 mg/dL Near or above optimal LDL 130-159 mg/dL Borderline high LDL 160-189 mg/dL High LDL greater than 189 mg/dL Very high PERFORMED BY: [place] [address] PATHOLOGIST [employer] SAMARA KIM M.D. Performed By: #### C MP, CBC, LDLD, LIPID, ESR, CRP #### [facility] [address] Leukocytes [#/volume] correc henrry for nucleated erythrocytes in Blood by Automated counOrdered By: Aryan Borges on 01-29-2023 WBC corrected for nucl RBC Auto (Bld) [#/Vol] 8.3 10*3/uL 3.8-11.6 [facility] Lipid Panelon 01-29-2023 Cholesterol [Mass/Vol] 173 mg/dL Normal 140-200 [facility] Comment on above: Result Comment: Chol less than 200 mg/dl low risk Chol 201-239 mg/dl borderline risk Chol 240 mg/dl and greater high risk Performed By: #### C MP, CBC, LDLD, LIPID, ESR, CRP #### [facility] [address] Cholesterol in HDL [Mass/Vol] 44 mg/dL Normal 23-92 [facility] Comment on above: Result Comment: HDL CHOL ATP-III CLASSIFICATION Cardiovascular Risk HDL > or equal to 60 mg/dL LOW HDL < 40 mg/dL HIGH Performed By: #### C MP, CBC, LDLD, LIPID, ESR, CRP #### [facility] [address] Cholesterol.total/Choles terol in HDL [Mass ratio] 3.9 {ratio} Normal <5.0 [facility] Comment on above: Performed By: #### C MP, CBC, LDLD, LIPID, ESR, CRP #### [facility] [address] [place] [id number] [facility] LDL Cholesterol,Calculated 111 mg/dL High 0-100 [facility] Comment on above: Result Comment: LDL ATP III CLASSIFICATION LDL less than 100 mg/dL Optimal LDL 100-129 mg/dL Near or above optimal LDL 130-159 mg/dL Borderline high LDL 160-189 mg/dL High LDL greater than 189 mg/dL Very high Performed By: #### C MP, CBC, LDLD, LIPID, ESR, CRP #### [facility] [address] [place] [id number] [place] Triglyceride w/Reflex 90 mg/dL Normal 0-149 [facility] Comment on above: Result Comment: TRIG ATP III CLASSIFICATION TRIG less than 150 mg/dL Normal TRIG 150-199 mg/dL Borderline high TRIG 200-500 mg/dL High TRIG greater than 500 mg/dL Very high Standard traceable to the Center for Disease Conrtrol and Prevention (CDC) test method. Performed By: #### C MP, CBC, LDLD, LIPID, ESR, CRP #### [facility] [address] VLDL CHOLESTEROL 18 mg/dL Normal [facility] Comment on above: Performed By: #### C MP, CBC, LDLD, LIPID, ESR, CRP #### [facility] [address] Lymphocytes Auto (Bld) [#/Vo l]Ordered By: Aryan Borges on 01-29-2023 Lymphocytes (Bld) [#/Vol] 3.4 10*3/uL 1.00-4.8 [facility] Lymphocytes/100 WBC Auto (Bl d)Ordered By: Aryan Borges on 01-29-2023 Lymphocytes/100 WBC (Bld) 41.5 % . [facility] MCH Auto (RBC) [Entitic mass ]Ordered By: Aryan Borges on 01-29-2023 MCH (RBC) [Entitic mass] 30.1 pg 24.7-34.3 [facility] MCHC Auto (RBC) [Mass/Vol]Or dered By: Aryan Borges on 01-29-2023 MCHC (RBC) [Mass/Vol] 34.0 g/dL 32.0-35.0 [facility] MCV Auto (RBC) [Entitic vol] Ordered By: Aryan Borges on 01-29-2023 MCV (RBC) [Entitic vol] 88.6 fL 80-100 [facility] Monocytes Auto (Bld) [#/Vol] Ordered By: Aryan Borges on 01-29-2023 Monocytes (Bld) [#/Vol] 0.5 10*3/uL 0.0-0.8 [facility] Monocytes/100 WBC Auto (Bld) Ordered By: Aryan Borges on 01-29-2023 Monocytes/100 WBC (Bld) 5.7 % . [facility] Neutrophils Auto (Bld) [#/Vo l]Ordered By: Aryan Borges on 01-29-2023 Neutrophils (Bld) [#/Vol] 4.1 10*3/uL 1.8-7.7 [facility] Neutrophils/100 WBC Auto (Bl d)Ordered By: Aryan Borges on 01-29-2023 Neutrophils/100 WBC (Bld) 50.1 % . [facility] No Panel InformationOrdered By: Aryan Borges on 01-29-2023 Estimated GFR (CKD-EPI) > 60.0 mL/Min [facility] Creatinine Clearance (Chem N/A [facility] Nucleated erythrocytes [Pres ence] in Blood by Automated countOrdered By: Aryan Borges on 01-29-2023 Nucleated RBC Auto Ql (Bld) 0.1 /100{WBC} 0-0.5 [facility] Platelet mean volume Auto (B ld) [Entitic vol]Ordered By: Aryan Borges on 01-29-2023 Platelet mean volume (Bld) [Entitic vol] 8.4 fL 6.3-10.7 [facility] Platelets Auto (Bld) [#/Vol] Ordered By: Aryan Borges on 01-29-2023 Platelets (Bld) [#/Vol] 257 10*3/uL 150-450 [facility] Potassium [Moles/volume] in Serum or PlasmaOrdered By: Aryan Borges on 01-29-2023 Potassium [Moles/Vol] 4.3 mmol/L 3.5-5.1 [facility] Protein [Mass/volume] in Ser um or PlasmaOrdered By: Aryan Borges on 01-29-2023 Protein [Mass/Vol] 6.7 g/dL 6.4-8.9 [facility] RBC Auto (Bld) [#/Vol]Ordere d By: Aryan Borges on 01-29-2023 RBC (Bld) [#/Vol] 4.42 10*6/uL 3.60-5.00 [facility] Serum or plasma albumin/glob ulin mass ratioOrdered By: Aryan Borges on 01-29-2023 Albumin/Globulin [Mass ratio] 1.7 {ratio} [facility] Serum or plasma anion gap de terminationOrdered By: Aryan Borges on 01-29-2023 Anion gap [Moles/Vol] 10.3 mmol/L 6.0-15.0 [facility] Serum or plasma high density lipoprotein (HDL) cholesterol measurementOrdered By: Aryan Borges on 01-29-2023 Cholesterol in HDL [Mass/Vol] 44 mg/dL 23-92 [facility] Comment on above: HDL CHOL ATP-III CLA SSIFICATION Cardiovascular RiskHDL > or equal to 60 mg/dL LOWHDL < 40 mg/dL HIGH Serum or plasma total choles terol/high density lipoprotein (HDL) cholesterol mass ratOrdered By: Aryan Borges on 01-29-2023 Cholesterol.total/Choles terol in HDL [Mass ratio] 3.9 {ratio} <5.0 [facility] Sodium [Moles/volume] in Ser um or PlasmaOrdered By: Aryan Borges on 01-29-2023 Sodium [Moles/Vol] 140 mmol/L 136-145 [facility] Triglyceride [Mass/volume] i n Serum or PlasmaOrdered By: Aryan Borges on 01-29-2023 Triglyceride [Mass/Vol] 90 mg/dL 0-149 [facility] Comment on above: TRIG ATP III CLASSIF ICATIONTRIG less than 150 mg/dL NormalTRIG 150-199 mg/dL Borderline highTRIG 200-500 mg/dL High TRIG greater than 500 mg/dL Very highStandard traceable to the Center for Disease Conrtrol and Prevention (CDC) test method. Urea nitrogen [Mass/volume] in Serum or PlasmaOrdered By: Aryan Borges on 01-29-2023 Urea nitrogen [Mass/Vol] 11 mg/dL 7-25 [facility] WBC Auto (Bld) [#/Vol]Ordere d By: Aryan Borges on 01-29-2023 WBC (Bld) [#/Vol] 8.3 10*3/uL 3.8-11.6 [facility] Albumin [Mass/volume] in Ser um or PlasmaOrdered By: Shady Riley on 03-14-2022 Albumin [Mass/Vol] 3.6 g/dL 3.2-5.5 [facility] Basophils Auto (Bld) [#/Vol] Ordered By: Shady Riley on 03-14-2022 Basophils (Bld) [#/Vol] 0.1 10*3/uL 0.0-0.2 [facility] Basophils/100 WBC Auto (Bld) Ordered By: Shady Riley on 03-14-2022 Basophils/100 WBC (Bld) 1.3 % . [facility] Blood hemoglobin measurement (mass/volume)Ordered By: Shady Riley on 03-14-2022 Hemoglobin (Bld) [Mass/Vol] 14.1 g/dL 11.8-15.4 [facility] Blood leukocytes automated c ount (number/volume)Ordered By: Shady Riley on 03-14-2022 WBC (Bld) [#/Vol] 7.6 10*3/uL 4.5-11.0 [facility] Cholesterol [Mass/volume] in Serum or PlasmaOrdered By: Shady Riley on 03-14-2022 Cholesterol [Mass/Vol] 175 mg/dL 140-200 [facility] Comment on above: Chol less than 200 m g/dl low risk Chol 201-239 mg/dl borderline risk Chol 240 mg/dl and greater high risk Cholesterol in LDL Calc [Mas s/Vol]Ordered By: Shady Riley on 03-14-2022 Cholesterol in LDL [Mass/Vol] 108 mg/dL 0-100 [facility] Comment on above: LDL ATP III CLASSIFI CATION LDL less than 100 mg/dL Optimal LDL 100-129 mg/dL Near or above optimal LDL 130-159 mg/dL Borderline high LDL 160-189 mg/dL High LDL greater than 189 mg/dL Very high Cholesterol in VLDL Calc [Ma ss/Vol]Ordered By: Shady Riley on 03-14-2022 Cholesterol in VLDL [Mass/Vol] 26 mg/dL [facility] Creatinine and Glomerular fi ltration rate.predicted panel (S/P/Bld)Ordered By: Shady Riley on 03-14-2022 Creatinine [Mass/Vol] 0.67 mg/dL 0.44-1.03 [facility] Eosinophils Auto (Bld) [#/Vo l]Ordered By: Shady Riley on 03-14-2022 Eosinophils (Bld) [#/Vol] 0.2 10*3/uL 0.0-0.45 [facility] [place] Eosinophils/100 WBC Auto (Bl d)Ordered By: Shady Riley on 03-14-2022 Eosinophils/100 WBC (Bld) 2.4 % . [facility] [place] Erythrocyte distribution wid th Auto (RBC) [Ratio]Ordered By: Shady Riley on 03-14-2022 Erythrocyte distribution width (RBC) [Ratio] 12.8 % 11.9-15.3 [facility] [place] Estimated glomerular filtrat ion rate (GFR) non- AmericanOrdered By: Shady Riley on 03-14-2022 GFR/1.73 sq M.predicted among non-blacks MDRD (S/P/Bld) [Vol rate/Area] > 60 mL/Min [facility] [place] Globulin Calc (S) [Mass/Vol] Ordered By: Shady Riley on 03-14-2022 Globulin (S) [Mass/Vol] 2.8 g/dL [facility] Hematocrit Auto (Bld) [Volum e fraction]Ordered By: Shady Riley on 03-14-2022 Hematocrit (Bld) [Volume fraction] 42.8 % 34.0-46.4 [facility] [place] Laboratory - Hematology and Cell countsOrdered By: Shady Riley on 03-14-2022 Nucleated RBC/100 WBC (Bld) [Ratio] 0.1 % 0-0.5 [facility] [place] Lymphocytes Auto (Bld) [#/Vo l]Ordered By: Shady Riley on 03-14-2022 Lymphocytes (Bld) [#/Vol] 2.9 10*3/uL 1.00-4.8 [facility] [place] Lymphocytes/100 WBC Auto (Bl d)Ordered By: Shady Riley on 03-14-2022 Lymphocytes/100 WBC (Bld) 38.6 % . [facility] [place] MCH Auto (RBC) [Entitic mass ]Ordered By: Shady Riley on 03-14-2022 MCH (RBC) [Entitic mass] 28.8 pg 24.7-34.3 [facility] [place] MCHC Auto (RBC) [Mass/Vol]Or dered By: Shady Riley on 03-14-2022 MCHC (RBC) [Mass/Vol] 32.9 g/dL 32.0-35.0 [facility] MCV Auto (RBC) [Entitic vol] Ordered By: Shady Riley on 03-14-2022 MCV (RBC) [Entitic vol] 87.4 fL 80-100 [facility] Monocytes Auto (Bld) [#/Vol] Ordered By: Shady Riley on 03-14-2022 Monocytes (Bld) [#/Vol] 0.5 10*3/uL 0.0-0.8 [facility] [place] Monocytes/100 WBC Auto (Bld) Ordered By: Shady Riley on 03-14-2022 Monocytes/100 WBC (Bld) 6.8 % . [facility] Neutrophils Auto (Bld) [#/Vo l]Ordered By: Shady Riley on 03-14-2022 Neutrophils (Bld) [#/Vol] 3.9 10*3/uL 1.8-7.7 [facility] [place] Neutrophils/100 WBC Auto (Bl d)Ordered By: Shady Riley on 03-14-2022 Neutrophils/100 WBC (Bld) 50.9 % . [facility] [place] No Panel InformationOrdered By: Shady Riley on 03-14-2022 Estimated GFR () > 60 mL/Min [facility] [place] Comment on above: GFR estimated refere nce range: According to KDOQI guidelines, <60 ml/min/1.73m2 is sufficient to diagnose a patient with chronic kidney disease. Pharmacy Creatinine Clearance (Chem N/A [facility] [place] Platelet mean volume Auto (B ld) [Entitic vol]Ordered By: Shady Riley on 03-14-2022 Platelet mean volume (Bld) [Entitic vol] 8.4 fL 6.3-10.7 [facility] [place] Platelets Auto (Bld) [#/Vol] Ordered By: Shady Riley on 03-14-2022 Platelets (Bld) [#/Vol] 253 10*3/uL 150-450 [facility] [place] Protein [Mass/volume] in Ser um or PlasmaOrdered By: Shady Riley on 03-14-2022 Protein [Mass/Vol] 6.4 g/dL 6.1-7.9 [facility] RBC Auto (Bld) [#/Vol]Ordere d By: Shady Riley on 03-14-2022 RBC (Bld) [#/Vol] 4.90 10*6/uL 3.60-5.00 [facility] Serum or plasma alanine kleler otransferase measurement without P-5'-P (enzymatic activiOrdered By: Shady Riley on 03-14-2022 ALT No additional P-5'-P [Catalytic activity/Vol] 54 U/L 10-60 [facility] Serum or plasma albumin/glob ulin mass ratioOrdered By: Shady Riley on 03-14-2022 Albumin/Globulin [Mass ratio] 1.3 {ratio} [facility] [place] Serum or plasma alkaline mehnaz sphatase measurement (enzymatic activity/volume)Ordered By: Shady Riley on 03-14-2022 ALP [Catalytic activity/Vol] 74 U/L 32-92 [facility] [place] Serum or plasma aspartate am inotransferase measurement (enzymatic activity/volume)Ordered By: Shady Riley on 03-14-2022 AST [Catalytic activity/Vol] 42 U/L 10-42 [facility] [place] Serum or plasma calcium gigi urement (mass/volume)Ordered By: Shady Riley on 03-14-2022 Calcium [Mass/Vol] 9.0 mg/dL 8.2-10.2 [facility] Serum or plasma chloride mendel surement (moles/volume)Ordered By: Shady Riley on 03-14-2022 Chloride [Moles/Vol] 102 mmol/L 95-114 [facility] Serum or plasma glucose gigi urement (mass/volume)Ordered By: Shady Riley on 03-14-2022 Glucose [Mass/Vol] 143 mg/dL 70-100 [facility] Comment on above: ADA recommended refe rence range Random Glucose Reference Range is dependent on time and content of last meal. Glucose of more than 200 mg/dL in a nonstressed, ambulatory subject supports the diagnosis of Diabetes Mellitus. Serum or plasma high density lipoprotein (HDL) cholesterol measurementOrdered By: Shady Riley on 03-14-2022 Cholesterol in HDL [Mass/Vol] 40 mg/dL 35-85 [facility] [place] Comment on above: HDL CHOL ATP-III CLA SSIFICATION Cardiovascular Risk HDL > or equal to 60 mg/dL LOW HDL < 40 mg/dL HIGH Serum or plasma potassium me asurement (moles/volume)Ordered By: Shady Riely on 03-14-2022 Potassium [Moles/Vol] 4.1 mmol/L 3.5-5.1 [facility] Serum or plasma sodium measu rement (moles/volume)Ordered By: Shady Riley on 03-14-2022 Sodium [Moles/Vol] 134 mmol/L 136-146 [facility] Serum or plasma total biliru bin measurement (mass/volume)Ordered By: Shady Riley on 03-14-2022 Bilirubin [Mass/Vol] 0.6 mg/dL 0.3-1.2 [facility] Serum or plasma total carbon dioxide measurement (moles/volume)Ordered By: Shady Riley on 03-14-2022 CO2 [Moles/Vol] 25.9 mmol/L 22.0-30.0 [facility] Serum or plasma total choles terol/high density lipoprotein (HDL) cholesterol mass ratOrdered By: Shady Riley on 03-14-2022 Cholesterol.total/Choles terol in HDL [Mass ratio] 4.4 {ratio} <5.0 [facility] [place] Serum or plasma urea nitroge n measurement (mass/volume)Ordered By: Shady Riley on 03-14-2022 Urea nitrogen [Mass/Vol] 7 mg/dL 9-23 [facility] [place] TSH DL <= 0.005 mIU/L QnOrde red By: Shady Riley on 03-14-2022 TSH Qn 0.72 m[IU]/L 0.45-5.33 [facility] [place] Triglyceride [Mass/volume] i n Serum or PlasmaOrdered By: Shady Riley on 03-14-2022 Triglyceride [Mass/Vol] 133 mg/dL 35-149 [facility] Comment on above: TRIG ATP III CLASSIF ICATION TRIG less than 150 mg/dL Normal TRIG 150-199 mg/dL Borderline high TRIG 200-500 mg/dL High TRIG greater than 500 mg/dL Very high Standard traceable to the Center for Disease Conrtrol and Prevention (CDC) test method. Covid-19 PCR (CVDTB)on 06-21 SARS-CoV-2 (COVID-19) RNA SHAMEKA+probe Ql (Unsp spec) Not detected Normal NOT DETECTED [facility] Comment on above: Result Comment: This test is not yet approved or cleared by the [place] FDA. When there are no FDA-approved or cleared tests available, and other criteria are met, FDA can make tests available under an emergency access mechanism called an Emergency Use Authorization (EUA). The EUA for this test is supported by the [place] of Health and Human Service's (HHS's) declaration that circumstances exist to justify the emergency use of in vitro diagnostics for the detection and/or diagnosis of the virus that causes COVID-19. This EUA will remain in effect (meaning this test can be used) for the duration of the COVID-19 declaration justifying emergency of IVDs, unless it is terminated or revoked by FDA (after which the test may no longer be used). When diagnostic testing is negative, the possibility of a false negative should be considered in the context of a patient's recent exposures and the presence of clinical signs and symptoms consistent with SARS-CoV-2. Performed By: #### C [facility] #### [facility] [address] [place] [address] Dr. Socorro Lyon Covid-19 PCR (CVDTB)on SARS-CoV-2 (COVID-19) RNA SHAMEKA+probe Ql (Unsp spec) Not detected Normal NOT DETECTED [facility] Comment on above: Result Comment: This test is not yet approved or cleared by the [place] FDA. When there are no FDA-approved or cleared tests available, and other criteria are met, FDA can make tests available under an emergency access mechanism called an Emergency Use Authorization (EUA). The EUA for this test is supported by the [place] of Health and Human Service's (HHS's) declaration that circumstances exist to justify the emergency use of in vitro diagnostics for the detection and/or diagnosis of the virus that causes COVID-19. This EUA will remain in effect (meaning this test can be used) for the duration of the COVID-19 declaration justifying emergency of IVDs, unless it is terminated or revoked by FDA (after which the test may no longer be used). When diagnostic testing is negative, the possibility of a false negative should be considered in the context of a patient's recent exposures and the presence of clinical signs and symptoms consistent with SARS-CoV-2. Performed By: #### C [facility] #### [facility] [address] [place], [place] [address] Lynne Person Vital Signs Date Time Vital Sign Value Performing Clinician Faci lity 05-15-2023 13:17-0400 Diastolic blood pressure 76 mm[Hg] Services [employer] Work Phone: [facility] [place] 05-15-2023 13:17-0400 Heart rate 70 /min Services [employer] Work Phone: [facility] [place] 05-15-2023 13:17-0400 Respiratory rate 14 /min Services [employer] Work Phone: [facility] [place] 05-15-2023 13:17-0400 SaO2% (BldA) [Mass fraction] 100 % Services [employer] Work Phone: [facility] [place] 05-15-2023 13:17-0400 Systolic blood pressure 124 mm[Hg] Services [employer] Work Phone: [facility] [place] 05-15-2023 09:50-0400 Body height 172.72 cm Services [employer] Work Phone: [facility] [place] 05-15-2023 09:50-0400 Body temperature 98.7 [degF] Services [employer] Work Phone: [facility] [place] 05-15-2023 09:50-0400 Body weight 99.79 kg Services [employer] Work Phone: [facility] [place] Encounters Encounter Date Encounter Type Care Provider Facility Start: 12-18-2023 End: 12-18-2023 ambulatory Aryan [facility] Facility:[facility] [place] Start: 12-18-2023 End: 12-18-2023 ambulatory Services [facility] Work Phone: [facility] Work Phone: Start: 12-18-2023 End: 12-18-2023 Patient encounter procedure Services [facility] Work Phone: [facility] Work Phone: Start: 05-15-2023 End: 05-15-2023 ambulatory Imad Asaad Facility:[facility] [place] Start: 05-15-2023 End: 05-15-2023 Admission to same day surgery center Services [facility] Work Phone: [facility] Work Phone: Start: 05-15-2023 End: 05-15-2023 ambulatory Services [facility] Work Phone: [facility] Work Phone: Start: 01-29-2023 End: 01-29-2023 ambulatory Aryan Derrelleau Facility:[facility] [place] Start: 01-29-2023 End: 01-29-2023 ambulatory DO Aryan Carvajalu Work Phone: [facility] Work Phone: Start: 01-29-2023 End: 01-29-2023 Departed Referred DO Aryan Carvajalu Work Phone: [facility] Start: 03-14-2022 End: 03-14-2022 Departed Referred [employer] TECHNICIAN-C Shady Riley Work Phone: [facility] Start: 10-07-2021 End: 10-07-2021 ambulatory [facility] Facility:[facility] Start: 07-04-2021 End: 07-04-[address] DOCTOR BYRNES Facility:[facility] Start: 03-23-2021 End: 03-23-[address] DOCTOR BYRNES Facility:[facility] Start: 03-03-2021 End: 03-03-2021 ambulatory [facility] Facility:[facility] Procedures Date Procedure Procedure Detail Performing Clinician Start: 05-15-2023 Colonoscopy Services [facility] Work Phone: Plan of Treatment Date Care Activity Detail Author Start: 05-15-2023 [facility] [place] Patient Education Hemorrhoids (D C) Diverticulosis (DC) [facility] Work Phone: Payers Date Payer Category Payer Private Health Insurance [id number] 2023 Self-pay [id number] 1980 Unknown [id number] 2.16.84 [id number] 1982 Unknown [id number] 2.16.84 [id number] 1982 Unknown [id number] 2.16.84 [id number] 1982 Unknown [id number] 2.16.84 [id number] 1959 Unknown [id number] Unknown [id number] 2.16.8 [id number] Unknown [id number] 2.16.8 [id number] Unknown [id number] 2.16.8 [id number] Social History Date Type Detail Facility Tobacco smoking stat [facility] Unknown if ever smoked [facility] Work Phone: Start: 1980 Sex Assigned At Female [facility] Start: [facility] [place] Goals Date Patient Goal Desired Activity /State Procedure note 05-15-2023 Note Date & Type Note Facility 05-15-2023 Procedure note [facility] Evaluation note Note Date & Type Note Facility Evaluation note No assessment information availa ble [facility] Work Phone: Hospital Discharge instructions Note Date & Type Note Facility Hospital Discharge instructions Additional Instructions DISCHARGE INSTRUCTIONS FOR COLONOSCOPY WHAT TO EXPECT: - You may feel full, gassy or cramping after your procedure. In some cases, this may be from a few hours to a day. Walking may help relieve the discomfort. - If you have polyp(s) removed you may note some minor bloody discharge after your first bowel movements. - You should begin to recover from anesthesia within 1 hour of the procedure, however may feel groggy for the next 24 hours. DO's AND DON'Ts: - Call your doctor right away if you have a hard abdomen, severe pain, are passing lots of bright red blood or clots. - Call your doctor if you develop any rashes, hives or difficulty breathing. - Let your doctor know if you have not had a bowel movement by 3 days after your procedure. - If you take 81 mg aspirin for your heart it is safe to resume this medication. - If you take other blood thinner medications your doctor will instruct you when these can safely be resumed. - Do NOT drive for 24 hours. - Do NOT operate machinery such as power tools, lawn mowers, snow blowers, sewing machines, etc. for 24 hours. - Avoid alcoholic beverages and drugs for allergies, nerves, or sleep. - Do NOT stay alone. Do NOT leave your child unattended. - Do NOT make important personal or business decisions or sign any legal documents. - Eat solid foods and drink liquids in smaller amounts than usual until normal appetite returns. If you should experience an upset stomach, liquids high in sugar content (soda, Dayday-Aid, non-acid juices) are recommended. - You can resume normal activities tomorrow. FOLLOW UP & RECOMMENDATIONS: -Notify the doctor if you have any problems. -Repeat colonoscopy in 10 years. -Follow up with PCP. -Office number [phone]. [facility] Work Phone: Summary Purpose Family History No Family History Records Found Relationship Condition Age at Onset Recorded Date/T cali grandparent Diabetes mellitus Unknown Heart disease Unknown father Diabetes mellitus Unknown sister Diabetes mellitus Unknown Crohn's disease Unknown brother Crohn's disease Unknown Malignant neoplasm of skin Unknown Relationship Condition Age at Onset Recorded Date/T cali grandparent Diabetes mellitus Unknown Heart disease Unknown father Diabetes mellitus Unknown sister Diabetes mellitus Unknown Crohn's disease Unknown brother Crohn's disease Unknown Malignant neoplasm of skin Unknown brother Diabetes mellitus Unknown father Family history of mental disorder Unknown Diabetes mellitus Unknown Not Specified Malignant neoplasm Unknown Advance Directives No Advanced Directives Records Found Advance Directive Response Recorded Date/ Time Advance Directives No May 2:03pm Chief Complaint and Reason for Visit Chief Complaint e11.9 Chief Complaint family hx crohn's di sease Chief Complaint R63.5 E11.9 Additional Source Comments INFORMATION SOURCE (unrecogn ized section and content) DATE CREATED AUTHOR 10/10/2021 [facility] DATE CREATED AUTHOR AUTHOR'S ORGANIZ ATION 12/19/2023 [facility] Care Teams (unrecognized sec tion and content) Team Status: Inactive Member Role Status Dates CONCETTA Robledo Attending Provider Active NON STAFF Primary Care Provider Active Team Status: Active Member Role Status Dates NON STAFF Primary Care Provider Active Team Status: Inactive Member Role Status Dates Aryan Borges DO RES Attending Provider Active Team Status: Active Member Role Status Dates Services [facility] Primary Care Provider Active Team Status: Inactive Member Role Status Dates Services [facility] Primary Care Provider Active Jesus Reeder MD Attending Provider Active Team Status: Inactive Member Role Status Dates Services [facility] Primary Care Provider Active Start: December 18, 2023 End: December 18, 2023 Washington Khan DO Attending Provider Active Start : December 18, 2023 End: December 18, 2023 Aryan Borges DO RES Other Provider Active Start: December 18, 2023 End: December 18, 2023 Goals (unrecognized section and content) Goals may be documented in a n alternate sectionGoals may be documented in an alternate sectionGoals may be documented in an alternate section FOR RECORDS PERTAINING TO PATIENTS WHO ARE OR HAVE BEEN ENROLLED IN A CHEMICAL DEPENDENCY/SUBSTANCEABUSE PROGRAM, SOME INFORMATION MAY BE OMITTED. This clinical summary was aggregated from multiple sources. Caution should be exercised in using it in the provision of clinical care. This summary normalizes information from multiple sources, and as a consequence, information in this document may materially change the coding, format and clinical context of patient data. In addition, data may be omitted in some cases. CLINICAL DECISIONS SHOULD BE BASED ON THE PRIMARY CLINICAL RECORDS. [facility]. provides no warranty or guarantee of the accuracy or completeness of information in this document.
[2024-06-23 08:23] LABS: Influenza Virus A Antigen Negative; Influenza Virus B Antigen Negative; Internal Control Within Normal Limits
[2024-06-23] MEDS: DEXAMETHASONE SOD PHOS 10 MG/ML VIAL PO (08:23)
--- NOTE | 2024-06-23 08:39 | ED_ITS ---
HPI - URI/Sore Throat General Chief Complaint: Upper Respiratory Infection Stated Complaint: URTI COMPLAINTS Time Seen by Provider: 06/23/24 07:55 Source: patient Limitations: no limitations History of Present Illness HPI Narrative: Patient presents to ED complaining of upper respiratory infection symptoms. Patient states she had a cold a couple weeks ago and she was starting to get better but then 2 days ago she feels like it settled in her chest. She feels like her breathing is pretty tight and she has been coughing up thick green stuff. Her fevers have subsided but she states she still cannot get rid of the feeling of chest tightness and breathing tightness. No specific chest pain that she just describes it as tight breathing. No history of asthma. No nausea vomiting or abdominal pain. Vital signs stable, oxygen saturation is normal on room air. No respiratory distress. Patient states she has had COVID multiple times and this does not feel like COVID. In no acute distress. Related Data Home Medications ?Medication ?Instructions ?Recorded ?Confirmed buspirone 7.5 mg tablet 7.5 mg PO DAILY 08/19/23 06/23/24 citalopram 40 mg tablet 40 mg PO DAILY 08/19/23 06/23/24 cyanocobalamin (vitamin B-12) 1,000 mcg PO DAILY 08/19/23 06/23/24 1,000 mcg tablet ergocalciferol (vitamin D2) 1,250 1,250 mcg PO DAILY 08/19/23 06/23/24 mcg (50,000 unit) capsule omeprazole 40 mg capsule,delayed 40 mg PO DAILY 08/19/23 06/23/24 release semaglutide 1 mg/dose (4 mg/3 mL) 1 mg subcut .weekly 08/19/23 06/23/24 subcutaneous pen injector (Ozempic) Previous Rx's ?Medication ?Instructions ?Recorded albuterol sulfate 90 mcg/actuation 1 inh inhalation Q6H PRN shortness 06/23/24 aerosol inhaler of breath or wheezing #8.5 grams methylprednisolone 4 mg tablets in 4 mg PO DAILY #21 ea 06/23/24 a dose pack (Medrol (Ghanshyam)) Allergies Allergy/AdvReac Type Severity Reaction Status Date / Time amoxicillin Allergy Mild Unknown Verified 06/23/24 08:13 azithromycin (From Zithromax) AdvReac Mild Unknown Verified 06/23/24 08:13 Penicillins AdvReac Mild Unknown Verified 06/23/24 08:13 Review of Systems ROS Status of ROS 10 or more systems reviewed and unremark able except as noted in history and below [facility] Social History Smoking status: Former smoker Little interest or pleasure in doing things: not at all Feeling down, depressed, or hopeless: not at all Exam Narrative Exam Narrative: Time Seen: [] Vital Signs: [Per nurse's notes.] General: [Alert] Skin: [Warm, dry, no rash.] Head: [Normocephalic, atraumatic.] Neck: [Supple, trachea midline.] Eye: [Pupils are equal, round and reactive to light, extraocular movements are intact, normal conjunctiva.] Ears, nose, mouth and throat: oral mucosa moist. Cardiovascular: [Regular rate and rhythm, no murmur.] Respiratory: [Lungs are clear to auscultation, respirations are non-labored, breath sounds are equal.] Chest wall: [No tenderness, no deformity.] Gastrointestinal: [Soft, nontender, non distended, normal bowel sounds.] MSK: 5 out of 5 muscle strength x 4 extremities no calf pain or edema Lymphatics: [No lymphadenopathy.] Psychiatric: [Cooperative, appropriate mood & affect.] Neurological: [Alert and oriented to person, place, time, and situation, no focal neurological deficit observed.] Constitutional Vital Signs, click to edit/add: Last Vital Signs Temp 98.4 F 06/23/24 08:00 Pulse 88 06/23/24 08:49 Resp 18 06/23/24 08:49 BP 131/88 06/23/24 08:49 Pulse Ox 98 06/23/24 08:49 O2 Del Method Room Air 06/23/24 08:42 Course Vital Signs Vital signs: Vital Signs Temperature 98.4 F 06/23/24 08:00 Pulse Rate 81 06/23/24 08:00 Respiratory Rate 18 06/23/24 08:00 Blood Pressure 138/92 H 06/23/24 08:00 Pulse Oximetry 100 06/23/24 08:00 Oxygen Delivery Method Room Air 06/23/24 08:00 Temperature 98.4 F 06/23/24 08:00 Pulse Rate 88 06/23/24 08:49 Respiratory Rate 18 06/23/24 08:49 Blood Pressure 131/88 06/23/24 08:49 Pulse Oximetry 98 06/23/24 08:49 Oxygen Delivery Method Room Air 06/23/24 08:42 MDM - URI/Sore Throat MDM Narrative Medical decision making narrative: Patient's labs are negative for flu. Chest x-ray clear showing no pneumonia. She is feeling much better after DuoNeb treatment. Patient received steroids here and will start a taper tomorrow. Will be sent home with a albuterol inhaler, use this every 2-4 hours as needed for tightness. Return to ED if worsening symptoms otherwise follow-up with family doctor. Patient is comfortable with care plan for home. Differential Diagnosis Differential diagnosis: Likely upper respiratory infection, viral infection, bronchitis and influenza Lab Data Attestation: I reviewed the patient's lab results. Labs: Lab Results 06/23/24 Range/Units 08:00 Influenza Type A Ag Negative Influenza Type B Ag Negative Imaging Data Chest x-ray: Radiologist's impression: ITS Impressions Chest X-Ray 06/23/24 08:06 IMPRESSION: No acute cardiopulmonary process Electronically authenticated by: MEI GILES Date: 06/23/2024 08:45 Discharge Plan Discharge Chief Complaint: Upper Respiratory Infection Clinical Impression: Upper respiratory infection, Bronchitis Patient Disposition: Home, Self-Care Time of Disposition Decision: 08:58 Condition: Good Mode of Transportation: Private Vehicle Prescriptions / Home Meds: New albuterol sulfate 90 mcg/actuation HFA aerosol inhaler 1 inh inhalation Q6H PRN (Reason: shortness of breath or wheezing) Qty: 8.5 0RF methylprednisolone [Medrol (Ghanshyam)] 4 mg tablets,dose pack 4 mg PO DAILY Qty: 21 0RF No Action citalopram 40 mg tablet 40 mg PO DAILY buspirone 7.5 mg tablet 7.5 mg PO DAILY cyanocobalamin (vitamin B-12) 1,000 mcg tablet 1,000 mcg PO DAILY ergocalciferol (vitamin D2) 1,250 mcg (50,000 unit) capsule 1,250 mcg PO DAILY omeprazole 40 mg capsule,delayed release(DR/EC) 40 mg PO DAILY Ozempic 1 mg/dose (4 mg/3 mL) pen injector 1 mg SUBCUT .weekly Print Language: Kiswahili Instructions: Acute Bronchitis (ED) Referrals: [facility]ILY[facility] [Primary Care Provider] - 1 week
[2024-06-23] MEDS: IPRATROPIUM/ALBUTEROL SULFATE 3 ML AMPUL.NEB IH (08:41)
[2024-06-23 08:42] VITALS: PULSE 110; O2SAT 98
[2024-06-23 08:49] VITALS: BP 131/88; PULSE 88; O2SAT 98
== END 2024-06-23 09:10 | disposition home or self-care (01) ==
PROVIDERS: Emergency Provider Emergency Medicine
DX: J06.9 Acute upper respiratory infection, unspecified (principal); J40 Bronchitis, not specified as acute or chronic; Z86.16 Personal history of COVID-19; Z87.891 Personal history of nicotine dependence
CPT/HCPCS: 71046; 87804; 94640; 99284; J1100

== ENCOUNTER 2025-02-14 17:48 | Emergency (ER) | payer OTHER, SELFPAY ==
--- OUTSIDE RECORDS SUMMARY | 2024-12-09 06:22 | XMS_ITS ---
Author Organization [facility] Address [address] [place] [address] Care Team Providers Care Sugarcane Research Technician Name Role Phone Rey Sherri Primary Care Provider [phone] REASON FOR VISIT Other Social History Sex Assigned At : Social History Observation Description Sex Assigned At Female Encounters Encounter Location Date Provider Diagnosis [facility] [address] [place] [address] 12/09/2024 Sherri Rey Screening mammogram for breast cancer Z12.31 Assessments Encounter Date Diagnosis (ICD Code) Assessment Notes Treatment Notes Treatment Clinical Notes Section Notes 12/09/2024 Screening mammogram for breast cancer (ICD-10 - Z12.31) Plan Of Treatment Pending Test Test Name Order Date MM screening mammo BI w/CAD 12/09/2024 Next Appt Details Provider Name:Minor Lin, 03/03/2025 03:15:00 PM, [address] [place], [address], Progress Notes * CORNELL HERNÁNDEZ MDOB: [birth year] (45 yo F)Acc No.[id number]:12/09/2024 Patient: CORNELL TREVIÑO :1980 A ge:44 Y S ex:Female Address:[address] [place], [address] Subjective: * Chief Complaints: * O ther * Medical History: * Surgical History: * Hospitalization/Major Diagno stic Procedure: * Medications: Objective: * Vitals: * Physical Examination: Assessment: * Assessment: 1. S creening mammogram for breast cancer - Z12.31 (Primary) Plan: * Treatment: * Procedure Codes: * * Date:
[2025-02-14 17:52] VITALS: BP 123/89; PULSE 83; TEMP 36.8; O2SAT 98; BMI 33.8
--- OUTSIDE RECORDS SUMMARY | 2025-02-14 18:01 | XMS_ITS | CCD ---
Author Organization [facility] ion [facility] Care Team Providers Care Television Engineering Teacher Name Role Phone [facility] Primary Care Unavaila ble PAY, DR VENTURA Attending Unavailable PAY, DR VENTURA Admitting Unavailable PAY, DR VENTURA Consulting Unavailable MISC, DR SOLORZANO Attending Unavailable MISC, DR SOLORZANO Admitting Unavailable MISC, DR SOLORZANO Consulting Unavailable [facility] Primary Care Unavaila ble MISC, DR SOLORZANO Admitting Unavailable MISC, DR SOLORAZNO Consulting Unavailable [facility] Primary Care Unavaila ble MISC, DR SOLORZANO Attending Unavailable [facility] Primary Care Unavaila ble GRECHMELINA, WANG ESPINOZA Consulting Unavailable PAY, DR VENTURA Attending Unavailable PAY, DR VENTURA Admitting Unavailable Berttim, CONTACT ACID PLANT OPERATOR HELPER-C Shady Chatterjee Attending Provider NON STAFF Primary Care Provider Unavailabl e DO Aryan Borges Attending Provider [facility] Primary Care Provider [phone] MD Jesus Reeder Attending Provider [phone] [facility] Primary Care Provider [phone] DO Washington Khan Attending Provider DO Aryan Borges Other Provider Washington Khan Attending Unavailable [facility] Primary Care Unavaila ble Jacob, Brittani Consulting Unavailable Washington Khan Admitting Unavailable Allergies Allergy Classification Reported Allergen(s) Allergy Type Date of Onset Reaction(s) Facility (1 source) Amoxicillin Drug Allergy [facility] (1 source) Azithromycin Drug Allergy [facility] (1 source) Penicillin Drug Allergy 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; Translations: [OTH TRAIN BRAKER CURRENT DRUG THERAPY] Onset: 2 Episodic Other connective tissue disease (3 sources) Pain in right thigh; Translations: [PAIN IN RIGHT THIGH] Onset: 2 Episodic Phlebitis; thrombophlebitis and thromboembolism (1 source) Phlebitis and thrombophlebitis of superficial vessels of right lower extremity; Translations: [PHLEBITIS AND TP SUP VES RT LOW EXT] Onset: 2 Episodic Substance-related disorders (1 source) Nicotine dependence, cigarettes, uncomplicated; Translations: [NICOTINE DEPEND CIGARETTES UNCOMP] Onset: 2 Chronic Unclassified (3 sources) CONTACT W/AND (SUSP) EXPOS COVID-19; Translations: [CONTACT W/AND (SUSP) EXPOS COVID-19] Onset: 1 Past or Other Problems Problem Classification Problem Date Documented Da te Episodic/Chronic Disorders of teeth and jaw (5 sources) Jaw pain; Translations: [Periapical abscess without sinus] Onset: 03-03-2021 Episodic Other aftercare (1 source) emt intermediate (current) use of insulin; Translations: [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 Performed By: #### L IPID, [id number], CBC, [id number], TSH3 wRFLX, CMP, URMACRERAT #### [address] Basophils/100 WBC (Bld) 1.0 % Normal . T omega [facility] Comment on above: Order Comment: Reaso n for Exam Type 2 diabetes mellitus without complications Performed By: #### L IPID, [id number], CBC, [id number], TSH3 wRFLX, CMP, URMACRERAT #### [address] Eosinophils (Bld) [#/Vol] 0.1 10*3/uL Normal 0.0-0.45 [facility] Comment on above: Order Comment: Reaso n for Exam Type 2 diabetes mellitus without complications Performed By: #### L IPID, [id number], CBC, [id number], TSH3 wRFLX, CMP, URMACRERAT #### [place] [address] [place] Eosinophils/100 WBC (Bld) 1.7 % Normal . [facility] Comment on above: Order Comment: Reaso n for Exam Type 2 diabetes mellitus without complications Performed By: #### L IPID, [id number], CBC, [id number], TSH3 wRFLX, CMP, URMACRERAT #### [address] Erythrocyte distribution width (RBC) [Ratio] 13.3 % Normal 11.9-15.3 [facility] Comment on above: Order Comment: Reaso n for Exam Type 2 diabetes mellitus without complications Performed By: #### L IPID, [id number], CBC, [id number], TSH3 wRFLX, CMP, URMACRERAT #### [address] Hematocrit (Bld) [Volume fraction] 42.8 % Normal 34.0-46.4 [facility] Comment on above: Order Comment: Reaso n for Exam Type 2 diabetes mellitus without complications Performed By: #### L IPID, [id number], CBC, [id number], TSH3 wRFLX, CMP, URMACRERAT #### [address] Hemoglobin (Bld) [Mass/Vol] 14.8 g/dL Normal 11.8-15.4 [facility] Comment on above: Order Comment: Reaso n for Exam Type 2 diabetes mellitus without complications Performed By: #### L IPID, [id number], CBC, [id number], TSH3 wRFLX, CMP, URMACRERAT #### [address] Lymphocytes (Bld) [#/Vol] 2.9 10*3/uL Normal 1.00-4.8 [facility] Comment on above: Order Comment: Reaso n for Exam Type 2 diabetes mellitus without complications Performed By: #### L IPID, [id number], CBC, [id number], TSH3 wRFLX, CMP, URMACRERAT #### [address] Lymphocytes/100 WBC (Bld) 37.1 % Normal . [facility] Comment on above: Order Comment: Reaso n for Exam Type 2 diabetes mellitus without complications Performed By: #### L IPID, [id number], CBC, [id number], TSH3 wRFLX, CMP, URMACRERAT #### [address] MCH (RBC) [Entitic mass] 30.1 pg Normal 24.7-34.3 [facility] Comment on above: Order Comment: Reaso n for Exam Type 2 diabetes mellitus without complications Performed By: #### L IPID, [id number], CBC, [id number], TSH3 wRFLX, CMP, URMACRERAT #### [address] MCV (RBC) [Entitic vol] 87.2 fL Normal 80-100 [facility] Comment on above: Order Comment: Reaso n for Exam Type 2 diabetes mellitus without complications Performed By: #### L IPID, [id number], CBC, [id number], TSH3 wRFLX, CMP, URMACRERAT #### [facility] [address] [place] [address] Mean Corpuscular HGB Conc 34.5 g/dL Normal 32.0-35.0 [facility] Comment on above: Order Comment: Reaso n for Exam Type 2 diabetes mellitus without complications Performed By: #### L IPID, [id number], CBC, [id number], TSH3 wRFLX, CMP, URMACRERAT #### [address] Monocytes (Bld) [#/Vol] 0.5 10*3/uL Normal 0.0-0.8 [facility] Comment on above: Order Comment: Reaso n for Exam Type 2 diabetes mellitus without complications Performed By: #### L IPID, [id number], CBC, [id number], TSH3 wRFLX, CMP, URMACRERAT #### [address] Monocytes/100 WBC (Bld) 7.0 % Normal . [facility] Comment on above: Order Comment: Reaso n for Exam Type 2 diabetes mellitus without complications Performed By: #### L IPID, [id number], CBC, [id number], TSH3 wRFLX, CMP, URMACRERAT #### [address] Neutrophils (Bld) [#/Vol] 4.1 10*3/uL Normal 1.8-7.7 [facility] Comment on above: Order Comment: Reaso n for Exam Type 2 diabetes mellitus without complications Performed By: #### L IPID, [id number], CBC, [id number], TSH3 wRFLX, CMP, URMACRERAT #### [address] Neutrophils/100 WBC (Bld) 53.2 % Normal . The [facility] Comment on above: Order Comment: Reaso n for Exam Type 2 diabetes mellitus without complications Performed By: #### L IPID, [id number], CBC, [id number], TSH3 wRFLX, CMP, URMACRERAT #### [facility] [address] [place] [address] NRBC% 0.1 /100{WBC} Normal 0-0.5 [facility] Comment on above: Order Comment: Reaso n for Exam Type 2 diabetes mellitus without complications Performed By: #### L IPID, [id number], CBC, [id number], TSH3 wRFLX, CMP, URMACRERAT #### [address] Platelet mean volume (Bld) [Entitic vol] 7.5 fL Normal 6.3-10.7 [facility] Comment on above: Order Comment: Reaso n for Exam Type 2 diabetes mellitus without complications Performed By: #### L IPID, [id number], CBC, [id number], TSH3 wRFLX, CMP, URMACRERAT #### [place] [address] [place] Platelets (Bld) [#/Vol] 300 10*3/uL Normal 150-450 [facility] Comment on above: Order Comment: Reaso n for Exam Type 2 diabetes mellitus without complications Performed By: #### L IPID, [id number], CBC, [id number], TSH3 wRFLX, CMP, URMACRERAT #### [place] [address] [place] RBC (Bld) [#/Vol] 4.92 10*6/uL Normal 3.60-5.00 [facility] Comment on above: Order Comment: Reaso n for Exam Type 2 diabetes mellitus without complications Performed By: #### L IPID, [id number], CBC, [id number], TSH3 wRFLX, CMP, URMACRERAT #### [address] WBC (Bld) [#/Vol] 7.7 10*3/uL Normal 3.8-11.6 [facility] Comment on above: Order Comment: Reaso n for Exam Type 2 diabetes mellitus without complications Performed By: #### L IPID, [id number], CBC, [id number], TSH3 wRFLX, CMP, URMACRERAT #### [address] [facility] 12-04-2024 Albumin [Mass/Vol] 4.4 g/dL Normal 3.5-5.7 [facility] Comment on above: Order Comment: Reaso n for Exam Type 2 diabetes mellitus without complications complications;Vitamin D def Performed By: #### L IPID, [id number], CBC, [id number], TSH3 wRFLX, CMP, URMACRERAT #### [address] Albumin/Globulin [Mass ratio] 1.7 {ratio} Normal The [facility] Comment on above: Order Comment: Reaso n for Exam Type 2 diabetes mellitus without complications complications;Vitamin D def Performed By: #### L IPID, [id number], CBC, [id number], TSH3 wRFLX, CMP, URMACRERAT #### [address] ALP [Catalytic activity/Vol] 63 U/L Normal 34-104 [facility] Comment on above: Order Comment: Reaso n for Exam Type 2 diabetes mellitus without complications complications;Vitamin D def Performed By: #### L IPID, [id number], CBC, [id number], TSH3 wRFLX, CMP, URMACRERAT #### [address] [place] [address] [facility] ALT [Catalytic activity/Vol] 13 U/L Normal 7-52 [facility] Comment on above: Order Comment: Reaso n for Exam Type 2 diabetes mellitus without complications complications;Vitamin D def Performed By: #### L IPID, [id number], CBC, [id number], TSH3 wRFLX, CMP, URMACRERAT #### [facility] [address] [place] [address] Anion gap [Moles/Vol] 9.6 mmol/L Normal 6.0-15.0 [facility] Comment on above: Order Comment: Reaso n for Exam Type 2 diabetes mellitus without complications complications;Vitamin D def Performed By: #### L IPID, [id number], CBC, [id number], TSH3 wRFLX, CMP, URMACRERAT #### [address] AST [Catalytic activity/Vol] 16 U/L Normal 13-39 The [facility] Comment on above: Order Comment: Reaso n for Exam Type 2 diabetes mellitus without complications complications;Vitamin D def Performed By: #### L IPID, [id number], CBC, [id number], TSH3 wRFLX, CMP, URMACRERAT #### [address] Bilirubin [Mass/Vol] 0.7 mg/dL Normal 0.3-1.0 [facility] Comment on above: Order Comment: Reaso n for Exam Type 2 diabetes mellitus without complications complications;Vitamin D def Performed By: #### L IPID, [id number], CBC, [id number], TSH3 wRFLX, CMP, URMACRERAT #### [facility] [address] [place], [place] [id number] [place] Calcium [Mass/Vol] 9.5 mg/dL Normal 8.6-10.3 [facility] Comment on above: Order Comment: Reaso n for Exam Type 2 diabetes mellitus without complications complications;Vitamin D def Performed By: #### L IPID, [id number], CBC, [id number], TSH3 wRFLX, CMP, URMACRERAT #### [address] Chloride [Moles/Vol] 104 mmol/L Normal 98-107 [facility] Comment on above: Order Comment: Reaso n for Exam Type 2 diabetes mellitus without complications complications;Vitamin D def Performed By: #### L IPID, [id number], CBC, [id number], TSH3 wRFLX, CMP, URMACRERAT #### [address] CO2 [Moles/Vol] 30.2 mmol/L Normal 21.0-31.0 [facility] Comment on above: Order Comment: Reaso n for Exam Type 2 diabetes mellitus without complications complications;Vitamin D def Performed By: #### L IPID, [id number], CBC, [id number], TSH3 wRFLX, CMP, URMACRERAT #### [address] Creatinine [Mass/Vol] 0.75 mg/dL Normal 0.60-1.20 [facility] Comment on above: Order Comment: Reaso n for Exam Type 2 diabetes mellitus without complications complications;Vitamin D def Performed By: #### L IPID, [id number], CBC, [id number], TSH3 wRFLX, CMP, URMACRERAT #### [address] GFR/1.73 sq M.predicted MDRD (S/P/Bld) [Vol rate/Area] mL/min/{1.73_m2} Normal The [facility] Comment on above: Order Comment: Reaso n for Exam Type 2 diabetes mellitus without complications complications;Vitamin D def Performed By: #### L IPID, [id number], CBC, [id number], TSH3 wRFLX, CMP, URMACRERAT #### [place] [id number] [facility] Globulin (S) [Mass/Vol] 2.6 g/dL Normal T he [facility] Comment on above: Order Comment: Reaso n for Exam Type 2 diabetes mellitus without complications complications;Vitamin D def Performed By: #### L IPID, [id number], CBC, [id number], TSH3 wRFLX, CMP, URMACRERAT #### [address] Glucose [Mass/Vol] 83 mg/dL Normal 70-100 [facility] Comment on above: Order Comment: Reaso n for Exam Type 2 diabetes mellitus without complications complications;Vitamin D def Result Comment: [facility] Glucose Reference Range is dependent on time and content of last meal. Glucose of more than 200 mg/dL in a nonstressed, ambulatory subject supports the diagnosis of Diabetes Mellitus. ADA recommended reference range Performed By: #### L IPID, [id number], CBC, [id number], TSH3 wRFLX, CMP, URMACRERAT #### [address] Potassium [Moles/Vol] 4.8 mmol/L Normal 3.5-5.1 [facility] Comment on above: Order Comment: Reaso n for Exam Type 2 diabetes mellitus without complications complications;Vitamin D def Performed By: #### L IPID, [id number], CBC, [id number], TSH3 wRFLX, CMP, URMACRERAT #### [address] Protein [Mass/Vol] 7.0 g/dL Normal 6.4-8.9 The [facility] Comment on above: Order Comment: Reaso n for Exam Type 2 diabetes mellitus without complications complications;Vitamin D def Performed By: #### L IPID, [id number], CBC, [id number], TSH3 wRFLX, CMP, URMACRERAT #### [facility] [address] [place], [place] [id number] [place] Sodium [Moles/Vol] 139 mmol/L Normal 136-145 [facility] Comment on above: Order Comment: Reaso n for Exam Type 2 diabetes mellitus without complications complications;Vitamin D def Performed By: #### L IPID, [id number], CBC, [id number], TSH3 wRFLX, CMP, URMACRERAT #### [facility] [address] Urea nitrogen [Mass/Vol] 6 mg/dL Low 7-25 [facility] Comment on above: Order Comment: Reaso n for Exam Type 2 diabetes mellitus without complications complications;Vitamin D def Performed By: #### L IPID, [id number], CBC, [id number], TSH3 wRFLX, CMP, URMACRERAT #### [facility] [address] [place] [id number] [facility] Lipid Panelon 12-04-2024 Cholesterol [Mass/Vol] 174 mg/dL Normal 140-200 Th e [facility] Comment on above: Order Comment: Reaso n for Exam Type 2 diabetes mellitus without complications complications;Vitamin D def Result Comment: Chol less than 200 mg/dl low risk Chol 201-239 mg/dl borderline risk Chol 240 mg/dl and greater high risk Performed By: #### L IPID, [id number], CBC, [id number], TSH3 wRFLX, CMP, URMACRERAT #### [place] [id number] [facility] Cholesterol in HDL [Mass/Vol] 50 mg/dL Normal 23-92 The [facility] Comment on above: Order Comment: Reaso n for Exam Type 2 diabetes mellitus without complications complications;Vitamin D def Result Comment: HDL CHOL ATP-III CLASSIFICATION Cardiovascular Risk HDL > or equal to 60 mg/dL LOW HDL < 40 mg/dL HIGH Performed By: #### L IPID, [id number], CBC, [id number], TSH3 wRFLX, CMP, URMACRERAT #### [facility] [address] [place], [place] [id number] [facility] Cholesterol.total/Choles terol in HDL [Mass ratio] 3.5 {ratio} Normal <5.0 The [facility] Comment on above: Order Comment: Reaso n for Exam Type 2 diabetes mellitus without complications complications;Vitamin D def Performed By: #### L IPID, [id number], CBC, [id number], TSH3 wRFLX, CMP, URMACRERAT #### [facility] [address] LDL Cholesterol,Calculated 108 mg/dL High 0-100 The [facility] Comment on above: Order Comment: Reaso n for Exam Type 2 diabetes mellitus without complications complications;Vitamin D def Result Comment: LDL ATP III CLASSIFICATION LDL less than 100 mg/dL Optimal LDL 100-129 mg/dL Near or above optimal LDL 130-159 mg/dL Borderline high LDL 160-189 mg/dL High LDL greater than 189 mg/dL Very high Performed By: #### L IPID, [id number], CBC, [id number], TSH3 wRFLX, CMP, URMACRERAT #### [facility] [address] Triglyceride w/Reflex 81 mg/dL Normal 0-149 The [facility] Comment on above: Order Comment: Reaso n for Exam Type 2 diabetes mellitus without complications complications;Vitamin D def Result Comment: TRIG ATP III CLASSIFICATION TRIG less than 150 mg/dL Normal TRIG 150-199 mg/dL Borderline high TRIG 200-500 mg/dL High TRIG greater than 500 mg/dL Very high Standard traceable to the Center for Disease Conrtrol and Prevention (CDC) test method. Performed By: #### L IPID, [id number], CBC, [id number], TSH3 wRFLX, CMP, URMACRERAT #### [facility] [address] VLDL CHOLESTEROL 16 mg/dL Normal The [facility] Comment on above: Order Comment: Reaso n for Exam Type 2 diabetes mellitus without complications complications;Vitamin D def Performed By: #### L IPID, [id number], CBC, [id number], TSH3 wRFLX, CMP, URMACRERAT #### [facility] [address] [place] [id number] [facility] MicroAlb Creat Ratio,Uon Albumin DL <= 20 mg/L (U) [Mass/Vol] 1.4 mg/dL Normal 0.0-1.8 [facility] Comment on above: Order Comment: Reaso n for Exam Type 2 diabetes mellitus without complications Performed By: #### L IPID, [id number], CBC, [id number], TSH3 wRFLX, CMP, URMACRERAT #### [address] Creatinine, Urine (Random) 246.00 mg/dL Normal The [facility] Comment on above: Order Comment: Reaso n for Exam Type 2 diabetes mellitus without complications Result Comment: No r eference range established Performed By: #### L IPID, [id number], CBC, [id number], TSH3 wRFLX, CMP, URMACRERAT #### [address] Microalbumin/Creatinine Ratio 5.7 mg/g Normal 0.0-30.0 [facility] Comment on above: Order Comment: Reaso n for Exam Type 2 diabetes mellitus without complications Result Comment: 30-3 00 mg/g indicates an increased risk for diabetic nephropathy. Greater than 300 mg/g is consistent with clinical nephropathy. (Am. J. Kidney Disease 1995, 25:107) PERFORMED BY: [place] [address] PATHOLOGIST HORTICULTURAL NURSERY ASSISTANT DC ISIDRO M.D. Performed By: #### L IPID, [id number], CBC, [id number], TSH3 wRFLX, CMP, URMACRERAT #### [address] Thyroid Stim Hormone w/Rflxo n 12-04-2024 Thyroid Stim Hormone w/Rflx 0.78 u[iU]/mL Normal 0.45-5.33 [facility] Comment on above: Order Comment: Reaso n for Exam Type 2 diabetes mellitus without complications complications;Vitamin D def Performed By: #### L IPID, [id number], CBC, [id number], TSH3 wRFLX, CMP, URMACRERAT #### [address] Vit. B12/Folate Profileon Cobalamin (Vitamin B12) [Mass/Vol] 704 pg/mL Normal 180-914 The [facility] Comment on above: Order Comment: Reaso n for Exam Type 2 diabetes mellitus without complications complications;Vitamin D def Performed By: #### L IPID, [id number], CBC, [id number], TSH3 wRFLX, CMP, URMACRERAT #### [address] [address] [facility] Folate 28.0 ng/mL Normal >5.9 The [facility] Comment on above: Order Comment: Reaso n for Exam Type 2 diabetes mellitus without complications complications;Vitamin D def Result Comment: Loree te reference range: >5.9 ng/ml The WHO technical consultation on folate and vitamin b12 deficiencies has determined that folate concentrations less than 4 ng/ml are considered deficient. Performed By: #### L IPID, [id number], CBC, [id number], TSH3 wRFLX, CMP, URMACRERAT #### [address] [address] [facility] Vitamin D 25 Hydroxy Totalon 12-04-2024 Vitamin D 25 Hydroxy Total 44.8 ng/mL Normal 30-100 The [facility] Comment on above: Order Comment: Reaso n for Exam Type 2 diabetes mellitus without complications complications;Vitamin D def Result Comment: JERO MIN D STATUS 25(OH)VITAMIN D RANGE (ng/mL) Deficient <20 Insufficient 20 to <30 Sufficient 30 to 100 Reference: Durga MF,Spenser NC, Soila SUN, et al. Evaluation,treatment, and prevention of vitamin D deficiency; an Endocrine Society clinical practice guideline. JCEM. 2010; 96(7):1911-30. PERFORMED BY: [place] [address] PATHOLOGIST HORTICULTURAL NURSERY ASSISTANT DC ISIDRO M.D. Performed By: #### L IPID, [id number], CBC, [id number], TSH3 wRFLX, CMP, URMACRERAT #### [address] [address] [facility] Alanine aminotransferase [En zymatic activity/volume] in Serum or PlasmaOrdered By: Aryan Borges on 12-18-2023 ALT [Catalytic activity/Vol] 16 U/L 7-52 [facility] Albumin [Mass/volume] in Ser um or Plasma by Bromocresol green (BCG) dye binding methoOrdered By: Aryan Borges on 12-18-2023 Albumin BCG dye [Mass/Vol] 4.4 g/dL 3.5-5.7 [facility] Alkaline phosphatase [Enzyma tic activity/volume] in Serum or PlasmaOrdered By: Aryan Borges on 12-18-2023 ALP [Catalytic activity/Vol] 60 U/L 34-104 [facility] Aspartate aminotransferase [ Enzymatic activity/volume] in Serum or PlasmaOrdered By: Aryan Borges on 12-18-2023 AST [Catalytic activity/Vol] 16 U/L 13-39 [facility] Bilirubin.total [Mass/volume ] in Serum or PlasmaOrdered By: Aryan Borges on 12-18-2023 Bilirubin [Mass/Vol] 0.6 mg/dL 0.3-1.[address] [facility] Calcium [Mass/volume] in Ser um or PlasmaOrdered By: Aryan Bogres on 12-18-2023 Calcium [Mass/Vol] 9.4 mg/dL 8.6-10.3 [facility] Carbon dioxide, total [Moles /volume] in Serum or PlasmaOrdered By: Aryan Borges on 12-18-2023 CO2 [Moles/Vol] 27.4 mmol/L 21.0-31.0 [facility] Chloride [Moles/volume] in S roseline or PlasmaOrdered By: Aryan Borges on 12-18-2023 Chloride [Moles/Vol] 105 mmol/L 98-[address] [facility] Cholesterol [Mass/volume] in Serum or PlasmaOrdered By: Aryan Borges on 12-18-2023 Cholesterol [Mass/Vol] 194 mg/dL 140-200 [facility] Comment on above: Chol less than 200 m g/dl low riskChol 201-239 mg/dl borderline riskChol 240 mg/dl and greater high risk Cholesterol in LDL Calc [Mas s/Vol]Ordered By: Aryan Borges on 12-18-2023 Cholesterol in LDL [Mass/Vol] 124 mg/dL 0-100 [facility] Comment on above: LDL ATP III CLASSIFI CATIONLDL less than 100 mg/dL OptimalLDL 100-129 mg/dL Near or above optimalLDL 130-159 mg/dL Borderline highLDL 160-189 mg/dL HighLDL greater than 189 mg/dL Very high Cholesterol in LDL [Mass/vol ume] in Serum or PlasmaOrdered By: Aryan Borges on 12-18-2023 Cholesterol in LDL [Mass/Vol] 142 mg/dL 0-100 [facility] Comment on above: LDL ATP III CLASSIFI CATIONLDL less than 100 mg/dL OptimalLDL 100-129 mg/dL Near or above optimalLDL 130-159 mg/dL Borderline highLDL 160-189 mg/dL HighLDL greater than 189 mg/dL Very high Cholesterol in VLDL Calc [Ma ss/Vol]Ordered By: Aryan Borges on 12-18-2023 Cholesterol in VLDL [Mass/Vol] 18 mg/dL [facility] Creatinine [Mass/volume] in Serum or PlasmaOrdered By: Aryan Borges on 12-18-2023 Creatinine [Mass/Vol] 0.74 mg/dL 0.60-1.[address] [facility] Globulin Calc (S) [Mass/Vol] Ordered By: Aryan Borges on 12-18-2023 Globulin (S) [Mass/Vol] 2.8 g/dL [facility] Glucose [Mass/volume] in Ser um or PlasmaOrdered By: Aryan Borges on 12-18-2023 Glucose [Mass/Vol] 91 mg/dL 70-100 [facility] Comment on above: ADA recommended refe rence rangeRandom Glucose Reference Range is dependent on time and content of last meal. Glucose of more than 200 mg/dL in a nonstressed, ambulatory subject supports the diagnosis of Diabetes Mellitus. No Panel InformationOrdered By: Aryan Borges on 12-18-2023 Estimated GFR (CKD-EPI) > 60.0 mL/Min [facility] Creatinine Clearance (Chem N/A [facility] Potassium [Moles/volume] in Serum or PlasmaOrdered By: Aryan Borges on 12-18-2023 Potassium [Moles/Vol] 4.5 mmol/L 3.5-5.[address] [facility] Protein [Mass/volume] in Ser um or PlasmaOrdered By: Aryan Borges on 12-18-2023 Protein [Mass/Vol] 7.2 g/dL 6.4-8.9 [facility] Serum or plasma albumin/glob ulin mass ratioOrdered By: Aryan Borges on 12-18-2023 Albumin/Globulin [Mass ratio] 1.6 {ratio} [facility] Serum or plasma anion gap de terminationOrdered By: Aryan Borges on 12-18-2023 Anion gap [Moles/Vol] 10.1 mmol/L 6.0-15.0 [facility] Serum or plasma high density lipoprotein (HDL) cholesterol measurementOrdered By: Aryan Borges on 12-18-2023 Cholesterol in HDL [Mass/Vol] 52 mg/dL 23-92 [facility] Comment on above: HDL CHOL ATP-III CLA SSIFICATION Cardiovascular RiskHDL > or equal to 60 mg/dL LOWHDL < 40 mg/dL HIGH Serum or plasma total choles terol/high density lipoprotein (HDL) cholesterol mass ratOrdered By: Aryan Borges on 12-18-2023 Cholesterol.total/Choles terol in HDL [Mass ratio] 3.7 {ratio} <5.0 [facility] Sodium [Moles/volume] in Ser um or PlasmaOrdered By: Aryan Borges on 12-18-2023 Sodium [Moles/Vol] 138 mmol/L 136-145 [facility] Thyrotropin [Units/volume] i n Serum or PlasmaOrdered By: Aryan Borges on 12-18-2023 TSH Qn 0.93 m[IU]/L 0.45-5.33 [facility] Thyroxine (T4) free [Mass/vo lume] in Serum or PlasmaOrdered By: Aryan Borges on 12-18-2023 Free T4 [Mass/Vol] 0.53 ng/dL 0.61-1.12 [facility] Triglyceride [Mass/volume] i n Serum or PlasmaOrdered By: Aryan Borges on 12-18-2023 Triglyceride [Mass/Vol] 92 mg/dL 0-149 [facility] Comment on above: TRIG ATP III CLASSIF ICATIONTRIG less than 150 mg/dL NormalTRIG 150-199 mg/dL Borderline highTRIG 200-500 mg/dL High TRIG greater than 500 mg/dL Very highStandard traceable to the Center for Disease Conrtrol and Prevention (CDC) test method. Urea nitrogen [Mass/volume] in Serum or PlasmaOrdered By: Aryan Borges on 12-18-2023 Urea nitrogen [Mass/Vol] 23 mg/dL 02-12 [facility] Glucose Glucometer (BldC) [M ass/Vol]Ordered By: Jesus Reeder on 05-15-2023 Glucose [Mass/Vol] 85 mg/dL [facility] Comment on above: Random Glucose Refer ence Range is dependent on time and content of last meal. Glucose of more than 200 mg/dL in a nonstressed, ambulatory subject supports the diagnosis of Diabetes Mellitus. Alanine aminotransferase [En zymatic activity/volume] in Serum or PlasmaOrdered By: Aryan Borges on 01-29-2023 ALT [Catalytic activity/Vol] 16 U/L 7 [facility] Albumin [Mass/volume] in Ser um or Plasma by Bromocresol green (BCG) dye binding methoOrdered By: Aryan Borges on 01-29-2023 Albumin BCG dye [Mass/Vol] 4.2 g/dL 3.5-5.7 [facility] Alkaline phosphatase [Enzyma tic activity/volume] in Serum or PlasmaOrdered By: Aryan Borges on 01-29-2023 ALP [Catalytic activity/Vol] 66 U/L 34-104 [facility] Aspartate aminotransferase [ Enzymatic activity/volume] in Serum or PlasmaOrdered By: Aryan Borges on 01-29-2023 AST [Catalytic activity/Vol] 19 U/L 13-39 [facility] Basophils Auto (Bld) [#/Vol] Ordered By: Aryan Borges on 01-29-2023 Basophils (Bld) [#/Vol] 0.1 10*3/uL 0.0-0.2 [facility] Basophils/100 WBC Auto (Bld) Ordered By: Aryan Borges on 01-29-2023 Basophils/100 WBC (Bld) 0.8 % . [facility] Bilirubin.total [Mass/volume ] in Serum or PlasmaOrdered By: Aryan Borges on 01-29-2023 Bilirubin [Mass/Vol] 0.6 mg/dL 0.3-1.[address] [facility] C reactive protein [Mass/vol ume] in Serum or PlasmaOrdered By: Aryan Borges on 01-29-2023 CRP [Mass/Vol] 0.5 mg/dL 0.0-0.5 [facility] Calcium [Mass/volume] in Ser um or PlasmaOrdered By: Aryan Borges on 01-29-2023 Calcium [Mass/Vol] 9.2 mg/dL 8.6-10.3 [facility] Carbon dioxide, total [Moles /volume] in Serum or PlasmaOrdered By: Aryan Borges on 01-29-2023 CO2 [Moles/Vol] 29.0 mmol/L 21.0-31.0 [facility] Chloride [Moles/volume] in S roseline or PlasmaOrdered By: Aryan Borges on 01-29-2023 Chloride [Moles/Vol] 105 mmol/L 98-[address] [facility] Cholesterol [Mass/volume] in Serum or PlasmaOrdered By: Aryan Borges on 01-29-2023 Cholesterol [Mass/Vol] 173 mg/dL 140-200 [facility] Comment on above: Chol less than 200 m g/dl low riskChol 201-239 mg/dl borderline riskChol 240 mg/dl and greater high risk Cholesterol in LDL Calc [Mas s/Vol]Ordered By: Aryan Borges on 01-29-2023 Cholesterol in LDL [Mass/Vol] 111 mg/dL 0-100 [facility] Comment on above: LDL ATP III CLASSIFI CATIONLDL less than 100 mg/dL OptimalLDL 100-129 mg/dL Near or above optimalLDL 130-159 mg/dL Borderline highLDL 160-189 mg/dL HighLDL greater than 189 mg/dL Very high Cholesterol in LDL [Mass/vol ume] in Serum or PlasmaOrdered By: Aryan Borges on 01-29-2023 Cholesterol in LDL [Mass/Vol] 120 mg/dL 0-100 [facility] Comment on above: LDL ATP III CLASSIFI CATIONLDL less than 100 mg/dL OptimalLDL 100-129 mg/dL Near or above optimalLDL 130-159 mg/dL Borderline highLDL 160-189 mg/dL HighLDL greater than 189 mg/dL Very high Cholesterol in VLDL Calc [Ma ss/Vol]Ordered By: Aryan Borges on 01-29-2023 Cholesterol in VLDL [Mass/Vol] 18 mg/dL [facility] Creatinine [Mass/volume] in Serum or PlasmaOrdered By: Aryan Borges on 01-29-2023 Creatinine [Mass/Vol] 0.55 mg/dL 0.60-1.[address] [facility] Eosinophils Auto (Bld) [#/Vo l]Ordered By: Aryan Borges on 01-29-2023 Eosinophils (Bld) [#/Vol] 0.2 10*3/uL 0.0-0.45 [facility] Eosinophils/100 WBC Auto (Bl d)Ordered By: Aryan Borges on 01-29-2023 Eosinophils/100 WBC (Bld) 1.9 % . [facility] Erythrocyte distribution wid th Auto (RBC) [Ratio]Ordered By: Aryan Borges on 01-29-2023 Erythrocyte distribution width (RBC) [Ratio] 13.0 % 11.9-15.3 [facility] Erythrocyte sedimentation ra te by Photometric methodOrdered By: Aryan Borges on 01-29-2023 ESR Photometric method (Bld) [Velocity] 11 mm/hr 0-19 [facility] Globulin Calc (S) [Mass/Vol] Ordered By: Aryan Borges on 01-29-2023 Globulin (S) [Mass/Vol] 2.5 g/dL [facility] Glucose [Mass/volume] in Ser um or PlasmaOrdered By: Aryan Borges on 01-29-2023 Glucose [Mass/Vol] 77 mg/dL 70-100 [facility] Comment on above: ADA recommended refe rence rangeRandom Glucose Reference Range is dependent on time and content of last meal. Glucose of more than 200 mg/dL in a nonstressed, ambulatory subject supports the diagnosis of Diabetes Mellitus. Hematocrit Auto (Bld) [Volum e fraction]Ordered By: Aryan Borges on 01-29-2023 Hematocrit (Bld) [Volume fraction] 39.2 % 34.0-46.4 [facility] Hemoglobin [Mass/volume] in BloodOrdered By: Aryan Borges on 01-29-2023 Hemoglobin (Bld) [Mass/Vol] 13.3 g/dL 11.8-15.4 [facility] Leukocytes [#/volume] correc henrry for nucleated erythrocytes in Blood by Automated counOrdered By: Aryan Borges on 01-29-2023 WBC corrected for nucl RBC Auto (Bld) [#/Vol] 8.3 10*3/uL 3.8-11.6 [facility] Lymphocytes Auto (Bld) [#/Vo l]Ordered By: Aryan Borges on 01-29-2023 Lymphocytes (Bld) [#/Vol] 3.4 10*3/uL 1.00-4.8 [facility] Lymphocytes/100 WBC Auto (Bl d)Ordered By: Aryan Borges on 01-29-2023 Lymphocytes/100 WBC (Bld) 41.5 % . [facility] MCH Auto (RBC) [Entitic mass ]Ordered By: Aryan Borges on 01-29-2023 MCH (RBC) [Entitic mass] 30.1 pg 24.7-34.3 [facility] MCHC Auto (RBC) [Mass/Vol]Or dered By: Aryan Borges on 01-29-2023 MCHC (RBC) [Mass/Vol] 34.0 g/dL 32.0-35.[address] [facility] MCV Auto (RBC) [Entitic vol] Ordered By: Aryan Borges on 01-29-2023 MCV (RBC) [Entitic vol] 88.6 fL 80-100 [facility] Monocytes Auto (Bld) [#/Vol] Ordered By: Aryan Borges on 01-29-2023 Monocytes (Bld) [#/Vol] 0.5 10*3/uL 0.0-0.8 [facility] Monocytes/100 WBC Auto (Bld) Ordered By: Aryan Borges on 01-29-2023 Monocytes/100 WBC (Bld) 5.7 % . [facility] Neutrophils Auto (Bld) [#/Vo l]Ordered By: Aryan Borges on 01-29-2023 Neutrophils (Bld) [#/Vol] 4.1 10*3/uL 1.8-7.7 [facility] Neutrophils/100 WBC Auto (Bl d)Ordered By: Aryan Borges on 01-29-2023 Neutrophils/100 WBC (Bld) 50.1 % . [facility] No Panel InformationOrdered By: Aryan Borges on 01-29-2023 Estimated GFR (CKD-EPI) > 60.0 mL/Min [facility] Creatinine Clearance (Chem N/A [facility] Nucleated erythrocytes [Pres ence] in Blood by Automated countOrdered By: Aryan Borges on 01-29-2023 Nucleated RBC Auto Ql (Bld) 0.1 /100{WBC} 0-0.5 [facility] Platelet mean volume Auto (B ld) [Entitic vol]Ordered By: Aryan Borges on 01-29-2023 Platelet mean volume (Bld) [Entitic vol] 8.4 fL 6.3-10.7 [facility] Platelets Auto (Bld) [#/Vol] Ordered By: Aryan Borges on 01-29-2023 Platelets (Bld) [#/Vol] 257 10*3/uL 150-450 [facility] Potassium [Moles/volume] in Serum or PlasmaOrdered By: Aryan Borges on 01-29-2023 Potassium [Moles/Vol] 4.3 mmol/L 3.5-5.[address] [facility] Protein [Mass/volume] in Ser um or PlasmaOrdered By: Aryan Borges on 01-29-2023 Protein [Mass/Vol] 6.7 g/dL 6.4-8.9 [facility] RBC Auto (Bld) [#/Vol]Ordere d By: Aryan Borges on 01-29-2023 RBC (Bld) [#/Vol] 4.42 10*6/uL 3.60-5.00 [facility] Serum or plasma albumin/glob ulin mass ratioOrdered By: Aryan Borges on 01-29-2023 Albumin/Globulin [Mass ratio] 1.7 {ratio} [facility] Serum or plasma anion gap de terminationOrdered By: Aryan Borges on 01-29-2023 Anion gap [Moles/Vol] 10.3 mmol/L 6.0-15.0 [facility] Serum or plasma high density lipoprotein (HDL) cholesterol measurementOrdered By: Aryan Borges on 01-29-2023 Cholesterol in HDL [Mass/Vol] 44 mg/dL 23-92 [facility] Comment on above: HDL CHOL ATP-III CLA SSIFICATION Cardiovascular RiskHDL > or equal to 60 mg/dL LOWHDL < 40 mg/dL HIGH Serum or plasma total choles terol/high density lipoprotein (HDL) cholesterol mass ratOrdered By: Aryan Borges on 01-29-2023 Cholesterol.total/Choles terol in HDL [Mass ratio] 3.9 {ratio} <5.0 [facility] Sodium [Moles/volume] in Ser um or PlasmaOrdered By: Aryan Borges on 01-29-2023 Sodium [Moles/Vol] 140 mmol/L 136-145 [facility] Triglyceride [Mass/volume] i n Serum or PlasmaOrdered By: Aryan Borges on 01-29-2023 Triglyceride [Mass/Vol] 90 mg/dL 0-149 [facility] Comment on above: TRIG ATP III CLASSIF ICATIONTRIG less than 150 mg/dL NormalTRIG 150-199 mg/dL Borderline highTRIG 200-500 mg/dL High TRIG greater than 500 mg/dL Very highStandard traceable to the Center for Disease Conrtrol and Prevention (CDC) test method. Urea nitrogen [Mass/volume] in Serum or PlasmaOrdered By: Aryan Borges on 01-29-2023 Urea nitrogen [Mass/Vol] 11 mg/dL 7-25 [facility] WBC Auto (Bld) [#/Vol]Ordere d By: Aryan Borges on 01-29-2023 WBC (Bld) [#/Vol] 8.3 10*3/uL 3.8-11.6 [facility] Albumin [Mass/volume] in Ser um or PlasmaOrdered By: Shady Riley on 03-14-2022 Albumin [Mass/Vol] 3.6 g/dL 3.2-5.5 [facility] Basophils Auto (Bld) [#/Vol] Ordered By: Shady Riley on 03-14-2022 Basophils (Bld) [#/Vol] 0.1 10*3/uL 0.0-0.2 [facility] Basophils/100 WBC Auto (Bld) Ordered By: Shady Riley on 03-14-2022 Basophils/100 WBC (Bld) 1.3 % . [facility] Blood hemoglobin measurement (mass/volume)Ordered By: Shady Riley on 03-14-2022 Hemoglobin (Bld) [Mass/Vol] 14.1 g/dL 11.8-15.4 [facility] Blood leukocytes automated c ount (number/volume)Ordered By: Shady Riley on 03-14-2022 WBC (Bld) [#/Vol] 7.6 10*3/uL 4.5-11.0 [facility] Cholesterol [Mass/volume] in Serum or PlasmaOrdered By: Shady Riley on 03-14-2022 Cholesterol [Mass/Vol] 175 mg/dL 140-200 [facility] Comment on above: Chol less than 200 m g/dl low risk Chol 201-239 mg/dl borderline risk Chol 240 mg/dl and greater high risk Cholesterol in LDL Calc [Mas s/Vol]Ordered By: Shady Riley on 03-14-2022 Cholesterol in LDL [Mass/Vol] 108 mg/dL 0-100 [facility] Comment on above: LDL ATP III CLASSIFI CATION LDL less than 100 mg/dL Optimal LDL 100-129 mg/dL Near or above optimal LDL 130-159 mg/dL Borderline high LDL 160-189 mg/dL High LDL greater than 189 mg/dL Very high Cholesterol in VLDL Calc [Ma ss/Vol]Ordered By: Shady Riley on 03-14-2022 Cholesterol in VLDL [Mass/Vol] 26 mg/dL [facility] Creatinine and Glomerular fi ltration rate.predicted panel (S/P/Bld)Ordered By: Shady Riley on 03-14-2022 Creatinine [Mass/Vol] 0.67 mg/dL 0.44-1.[address] [facility] Eosinophils Auto (Bld) [#/Vo l]Ordered By: Shady Riley on 03-14-2022 Eosinophils (Bld) [#/Vol] 0.2 10*3/uL 0.0-0.45 [facility] Eosinophils/100 WBC Auto (Bl d)Ordered By: Shady Riley on 03-14-2022 Eosinophils/100 WBC (Bld) 2.4 % . [facility] Erythrocyte distribution wid th Auto (RBC) [Ratio]Ordered By: Shady Riley on 03-14-2022 Erythrocyte distribution width (RBC) [Ratio] 12.8 % 11.9-15.3 [facility] Estimated glomerular filtrat ion rate (GFR) non- AmericanOrdered By: Shady Riley on 03-14-2022 GFR/1.73 sq M.predicted among non-blacks MDRD (S/P/Bld) [Vol rate/Area] > 60 mL/Min [facility] Globulin Calc (S) [Mass/Vol] Ordered By: Shady Riley on 03-14-2022 Globulin (S) [Mass/Vol] 2.8 g/dL [facility] Hematocrit Auto (Bld) [Volum e fraction]Ordered By: Shady Riley on 03-14-2022 Hematocrit (Bld) [Volume fraction] 42.8 % 34.0-46.4 [facility] Laboratory - Hematology and Cell countsOrdered By: Shady Riley on 03-14-2022 Nucleated RBC/100 WBC (Bld) [Ratio] 0.1 % 0-0.5 [facility] Lymphocytes Auto (Bld) [#/Vo l]Ordered By: Shady Riley on 03-14-2022 Lymphocytes (Bld) [#/Vol] 2.9 10*3/uL 1.00-4.8 [facility] Lymphocytes/100 WBC Auto (Bl d)Ordered By: Shady Riley on 03-14-2022 Lymphocytes/100 WBC (Bld) 38.6 % . [facility] MCH Auto (RBC) [Entitic mass ]Ordered By: Shady Riley on 03-14-2022 MCH (RBC) [Entitic mass] 28.8 pg 24.7-34.3 [facility] MCHC Auto (RBC) [Mass/Vol]Or dered By: Shady Riley on 03-14-2022 MCHC (RBC) [Mass/Vol] 32.9 g/dL 32.0-35.[address] [facility] MCV Auto (RBC) [Entitic vol] Ordered By: Shady Riley on 03-14-2022 MCV (RBC) [Entitic vol] 87.4 fL 80-100 [facility] Monocytes Auto (Bld) [#/Vol] Ordered By: Shady Riley on 03-14-2022 Monocytes (Bld) [#/Vol] 0.5 10*3/uL 0.0-0.8 [facility] Monocytes/100 WBC Auto (Bld) Ordered By: Shady Riley on 03-14-2022 Monocytes/100 WBC (Bld) 6.8 % . [facility] Neutrophils Auto (Bld) [#/Vo l]Ordered By: Shady Riley on 03-14-2022 Neutrophils (Bld) [#/Vol] 3.9 10*3/uL 1.8-7.7 [facility] Neutrophils/100 WBC Auto (Bl d)Ordered By: Shady Riley on 03-14-2022 Neutrophils/100 WBC (Bld) 50.9 % . [facility] No Panel InformationOrdered By: Shady Riley on 03-14-2022 Estimated GFR () > 60 mL/Min [facility] Comment on above: GFR estimated refere nce range: According to KDOQI guidelines, <60 ml/min/1.73m2 is sufficient to diagnose a patient with chronic kidney disease. Pharmacy Creatinine Clearance (Chem N/A [facility] Platelet mean volume Auto (B ld) [Entitic vol]Ordered By: Shady Riley on 03-14-2022 Platelet mean volume (Bld) [Entitic vol] 8.4 fL 6.3-10.7 [facility] Platelets Auto (Bld) [#/Vol] Ordered By: Shady Riley on 03-14-2022 Platelets (Bld) [#/Vol] 253 10*3/uL 150-450 [facility] Protein [Mass/volume] in Ser um or PlasmaOrdered By: Shady Riley on 03-14-2022 Protein [Mass/Vol] 6.4 g/dL 6.1-7.9 [facility] RBC Auto (Bld) [#/Vol]Ordere d By: Shady Riley on 03-14-2022 RBC (Bld) [#/Vol] 4.90 10*6/uL 3.60-5.00 [facility] Serum or plasma alanine keller otransferase measurement without P-5'-P (enzymatic activiOrdered By: Shady Riley on 03-14-2022 ALT No additional P-5'-P [Catalytic activity/Vol] 54 U/L 10-60 [facility] Serum or plasma albumin/glob ulin mass ratioOrdered By: Shady Riley on 03-14-2022 Albumin/Globulin [Mass ratio] 1.3 {ratio} [facility] Serum or plasma alkaline mehnaz sphatase measurement (enzymatic activity/volume)Ordered By: Shady Riley on 03-14-2022 ALP [Catalytic activity/Vol] 74 U/L 32-92 [facility] Serum or plasma aspartate am inotransferase measurement (enzymatic activity/volume)Ordered By: Shady Riley on 03-14-2022 AST [Catalytic activity/Vol] 42 U/L 10-42 [facility] Serum or plasma calcium gigi urement (mass/volume)Ordered By: Shady Riley on 03-14-2022 Calcium [Mass/Vol] 9.0 mg/dL 8.2-10.2 [facility] Serum or plasma chloride mendel surement (moles/volume)Ordered By: Shady Riley on 03-14-2022 Chloride [Moles/Vol] 102 mmol/L 95-[address] [facility] Serum or plasma glucose gigi urement (mass/volume)Ordered By: Shady Riley on 03-14-2022 Glucose [Mass/Vol] 143 mg/dL 70-100 [facility] Comment on above: ADA recommended refe rence range Random Glucose Reference Range is dependent on time and content of last meal. Glucose of more than 200 mg/dL in a nonstressed, ambulatory subject supports the diagnosis of Diabetes Mellitus. Serum or plasma high density lipoprotein (HDL) cholesterol measurementOrdered By: Shady Riley on 03-14-2022 Cholesterol in HDL [Mass/Vol] 40 mg/dL 35-85 [facility] Comment on above: HDL CHOL ATP-III CLA SSIFICATION Cardiovascular Risk HDL > or equal to 60 mg/dL LOW HDL < 40 mg/dL HIGH Serum or plasma potassium me asurement (moles/volume)Ordered By: Shady Riley on 03-14-2022 Potassium [Moles/Vol] 4.1 mmol/L 3.5-5.[address] [facility] Serum or plasma sodium measu rement (moles/volume)Ordered By: Shady Riley on 03-14-2022 Sodium [Moles/Vol] 134 mmol/L 136-146 [facility] Serum or plasma total biliru bin measurement (mass/volume)Ordered By: Shady Riley on 03-14-2022 Bilirubin [Mass/Vol] 0.6 mg/dL 0.3-1.[address] [facility] Serum or plasma total carbon dioxide measurement (moles/volume)Ordered By: Shady Riley on 03-14-2022 CO2 [Moles/Vol] 25.9 mmol/L 22.0-30.0 [facility] Serum or plasma total choles terol/high density lipoprotein (HDL) cholesterol mass ratOrdered By: Shady Riley on 03-14-2022 Cholesterol.total/Choles terol in HDL [Mass ratio] 4.4 {ratio} <5.0 [facility] Serum or plasma urea nitroge n measurement (mass/volume)Ordered By: Shady Riley on 03-14-2022 Urea nitrogen [Mass/Vol] 7 mg/dL 9-23 [facility] TSH DL <= 0.005 mIU/L QnOrde red By: Shady Riley on 03-14-2022 TSH Qn 0.72 m[IU]/L 0.45-5.33 [facility] Triglyceride [Mass/volume] i n Serum or PlasmaOrdered By: Shady Riley on 03-14-2022 Triglyceride [Mass/Vol] 133 mg/dL 35-149 [facility] Comment on above: TRIG ATP III CLASSIF ICATION TRIG less than 150 mg/dL Normal TRIG 150-199 mg/dL Borderline high TRIG 200-500 mg/dL High TRIG greater than 500 mg/dL Very high Standard traceable to the Center for Disease Conrtrol and Prevention (CDC) test method. Covid-19 PCR (CVDTB)on 06-21 SARS-CoV-2 (COVID-19) RNA SHAMEKA+probe Ql (Unsp spec) Not detected Normal NOT DETECTED [facility] Comment on above: Result Comment: This test is not yet approved or cleared by the [place] FDA. When there are no FDA-approved or cleared tests available, and other criteria are met, FDA can make tests available under an emergency access mechanism called an Emergency Use Authorization (EUA). The EUA for this test is supported by the [place] of Health and Human Service's (HHS's) declaration [...] consistent with SARS-CoV-2. Performed By: #### [facility] #### [facility] [address] [place] [address] Dr. Socorro Lyon Covid-19 PCR (CVDTB)on SARS-CoV-2 (COVID-19) RNA SHAMEKA+probe Ql (Unsp spec) Not detected Normal NOT DETECTED [facility] Comment on above: Result Comment: This test is not yet approved or cleared by the [place] FDA. When there are no FDA-approved or cleared tests available, and other criteria are met, FDA can make tests available under an emergency access mechanism called an Emergency Use Authorization (EUA). The EUA for this test is supported by the [place] of Health and Human Service's (HHS's) declaration [...] consistent with SARS-CoV-2. Performed By: #### [facility] #### [facility] [address], [place] [address] Lynne Person Vital Signs Date Time Vital Sign Value Performing Clinician Faci lity 05-15-2023 13:17-0400 Diastolic blood pressure 76 mm[Hg] Services [employer] Work Phone: [facility] 05-15-2023 13:17-0400 Heart rate 70 /min Services [employer] Work Phone: [facility] 05-15-2023 13:17-0400 Respiratory rate 14 /min Services [facility] [employer] Work Phone: [facility] 05-15-2023 13:17-0400 SaO2% (BldA) [Mass fraction] 100 % Services [employer] Work Phone: [facility] 05-15-2023 13:17-0400 Systolic blood pressure 124 mm[Hg] Services [employer] Work Phone: [facility] 05-15-2023 09:50-0400 Body height 172.72 cm Services [employer] Work Phone: [facility] 05-15-2023 09:50-0400 Body temperature 98.7 [degF] Services [employer] Work Phone: [facility] 05-15-2023 09:50-0400 Body weight 99.79 kg Services [facility] [employer] Work Phone: [facility] Encounters Encounter Date Encounter Type Care Provider Facility Start: 12-04-2024 End: 12-04-2024 ambulatory [facility] Facility:[facility] Start: 12-18-2023 End: 12-18-2023 ambulatory [facility] [employer] Work Phone: [facility] Work Phone: Start: 12-18-2023 End: 12-18-2023 Patient encounter procedure Services [facility] Work Phone: [facility] Work Phone: Start: 05-15-2023 End: 05-15-2023 Admission to same day surgery center Services [facility] Work Phone: [facility] Work Phone: Start: 05-15-2023 End: 05-15-2023 ambulatory Services [facility] Work Phone: [facility] Work Phone: Start: 01-29-2023 End: 01-29-2023 ambulatory DO Aryan Borges Work Phone: [facility] Work Phone: Start: 01-29-2023 End: 01-29-2023 Departed Referred DO Aryan Borges Work Phone: [facility] Start: 03-14-2022 End: 03-14-2022 Departed Referred [employer]TACT [employer] Shady Riley Work Phone: [facility] Start: 10-07-2021 End: 10-07-2021 ambulatory [facility] Facility:[facility] Start: 07-04-2021 End: 07-04-[address] DOCTOR BYRNES Facility:[facility] Start: 03-23-2021 End: 03-23-[address] DOCTOR BYRNES Facility:[facility] Start: 03-03-2021 End: 03-03-2021 ambulatory [facility] Facility:[facility] Procedures Date Procedure Procedure Detail Performing Clinician Start: 05-15-2023 Colonoscopy Services [facility] Work Phone: Plan of Treatment Date Care Activity Detail Author Start: 05-15-2023 [facility] Patient Education Hemorrhoids (D C) Diverticulosis (DC) [facility] Work Phone: Payers Date Payer Category Payer Private Health Insurance [facility] [id number] 2024 Self-pay [id number] 1982 Unknown [id number] [id number] 1982 Unknown [id number] [id number] [id number] 1982 Unknown [id number] [id number] 1982 Unknown [id number] [id number] [id number] 1959 Unknown [id number] Unknown [id number] [id number] [id number] Social History Date Type Detail Facility Tobacco smoking stat [facility] Unknown if ever smoked [facility] Work Phone: Start: 1980 Sex Assigned At Female F [facility] Start: [facility]15-2023 [facility] Goals Date Patient Goal Desired Activity /State Procedure note 05-15-2023 Note Date & Type Note Facility 05-15-2023 Procedure note [facility] Evaluation note Note Date & Type Note Facility Evaluation note No assessment information availa ble [facility] Work Phone: Hospital Discharge instructions Note Date [...] years. -Follow up with PCP. -Office number [phone]. [facility] Work Phone: Summary Purpose Family History No [...] content) DATE CREATED AUTHOR 10/10/2021 [employer] DATE CREATED AUTHOR AUTHOR'S ORGANIZ ATION 12/18/2024 [facility] Care Teams (unrecognized sec tion and content) Team Status: Inactive Member Role Status Dates SHAKIRA RobledoC Attending Provider Active NON STAFF Primary Care Provider Active Team Status: Active Member Role Status Dates NON STAFF Primary Care Provider Active Team Status: Inactive Member Role Status Dates Aryan Borges DO RES Attending Provider Active Team Status: Active Member Role Status Dates Services [facility] Primary Care Provider Active Team Status: Inactive Member Role Status Dates Services [facility] Primary Care Provider Active Jesus Reeder MD Attending Provider Active Team Status: Inactive Member Role Status Dates Services [facility] Primary Care Provider Active Start: December 18, [...] BE BASED ON THE PRIMARY CLINICAL RECORDS. [facility] [employer] provides no warranty or guarantee of the accuracy or completeness of information in this document.
--- OUTSIDE RECORDS SUMMARY | 2025-02-14 18:01 | XMS_ITS | Patient Health Record ---
Author Organization [facility] Servic es Address [address] [place] [address] Care Team Providers Care Us Administrative Law Judge Name Role Phone Sherri Le Primary Care Provider [phone] Aryan Hill Unavailable Brittani Diallo Unavailable [phone] Minor Lin Unavailable [phone] Allergies Allergen (clinical drug ingredient) Drug/Non Drug Allergy documented on EMR Reaction Allergy Type Onset Date Status azithromycin Zithromax shortness of breath Drug Allergy Active Penicillin rash Drug Allergy Active Results Component Value Reference Range Notes Thyroid Stim Hormone w/Rflx Reviewed date:12/06/2024 02:20:56 PM Interpretation:Normal Performing Lab: Notes/Report: complications;Vitamin D def complications Reason for Exam Type 2 diabetes mellitus without Thyroid Stim Hormone w/Rflx 0.78 0.45-5.33 u[i U]/mL Lipid Panel Reviewed date:12/06/2024 02:26:40 PM Interpretation: Performing Lab: Notes/Report: Reason for Exam Type 2 diabetes mellitus without complications complications;Vitamin D def Cholesterol 174 140-200 mg/dL Chol less than 200 mg/dl low risk Chol 201-239 mg/dl borderline risk Chol 240 mg/dl and greater high risk HDL Cholesterol 50 23-92 mg/dL HDL CHOL ATP-III CLASSIFICATION Cardiovascular Risk HDL > or equal to 60 mg/dL LOW HDL < 40 mg/dL HIGH Triglyceride w/Reflex 81 0-149 mg/dL TRIG ATP III CLASSIFICATION TRIG less than 150 mg/dL Normal TRIG 150-199 mg/dL Borderline high TRIG 200-500 mg/dL High TRIG greater than 500 mg/dL Very high Standard traceable to the Center for Disease Conrtrol and Prevention (CDC) test method. LDL Cholesterol,Calculated 108 0-100 mg/dL LDL ATP III CLASSIFICATION LDL less than 100 mg/dL Optimal LDL 100-129 mg/dL Near or above optimal LDL 130-159 mg/dL Borderline high LDL 160-189 mg/dL High LDL greater than 189 mg/dL Very high VLDL CHOLESTEROL 16 Chol/HDL Ratio 3.5 <5.0 Comprehensive Metabolic Pane l Reviewed date:12/06/2024 02:21:26 PM Interpretation: Performing Lab:, [facility], [address] [place] Notes/Report: Reason for Exam Type 2 diabetes mellitus without complications complications;Vitamin D def Glucose 83 70-100 mg/dL Random Glucose Reference Range is dependent on time and content of last meal. Glucose of more than 200 mg/dL in a nonstressed, ambulatory subject supports the diagnosis of Diabetes Mellitus. ADA recommended reference range Blood Urea Nitrogen 6 7-25 mg/dL Creatinine 0.75 0.60-1.20 mg/dL Sodium 139 136-145 mmol/L Potassium 4.8 3.5-5.1 mmol/L Chloride 104 98-107 mmol/L Carbon Dioxide 30.2 21.0-31.0 mmol/L Calcium 9.5 8.6-10.3 mg/dL Total Protein 7.0 6.4-8.9 g/dL Albumin Level 4.4 3.5-5.7 g/dL Globulin 2.6 Albumin/Globulin Ratio 1.7 Bilirubin,Total 0.7 0.3-1.0 mg/dL Aspartate Amino Transferase 16 13-39 U/L Alanine Aminotransferase 13 7-52 U/L Alkaline Phosphatase 63 34-104 U/L Estimated GFR >60.0 Anion Gap 9.6 6.0-15.0 meq/L MicroAlb Creat Ratio,U Reviewed date:12/06/2024 02:20:31 PM Interpretation: Performing Lab:, [facility], [address] [place] Notes/Report: Reason for Exam Type 2 diabetes mellitus without complications Microalbumin, Urine 1.4 0.0-1.8 mg/dL Creatinine, Urine (Random) 246.00 N o reference range established Microalbumin/Creatinine Ratio 5.7 0.0-30.0 mg /g 30-300 mg/g indicates an increased risk for diabetic nephropathy. Greater than 300 mg/g is consistent with clinical nephropathy. (Am. J. Kidney Disease 1995, 25:107) Hemoglobin A1c Reviewed date:11/27/2024 04:09:09 PM Interpretation: Performing Lab: Notes/Report: Hemoglobin A1c 5.3% 5 - 7.9 % Hemoglobin A1c Reviewed date:08/13/2024 04:43:40 PM Interpretation:6.0 Performing Lab: Notes/Report: 6.0 Hemoglobin A1c 6.0 5 - 7.9 % A1C with Estimated Average G sundeep Reviewed date:05/06/2024 11:19:37 AM Interpretation: Performing Lab: Notes/Report: Hemoglobin A1C 5.4 Complete Blood Count Auto Di ff Reviewed date:12/06/2024 02:21:07 PM Interpretation:Normal Performing Lab:, [facility], [address] [place] Notes/Report: Reason for Exam Type 2 diabetes mellitus without complications White Blood Count 7.7 3.8-11.6 10*3/uL Uncorrected WBC 7.7 3.8-11.6 10*3/uL Red Blood Count 4.92 3.60-5.00 10*6/uL Hemoglobin 14.8 11.8-15.4 g/dL Hematocrit 42.8 34.0-46.4 % Mean Corpuscular Volume 87.2 80-100 fL Mean Corpuscular Hemoglobin 30.1 24.7-34.3 pg Mean Corpuscular HGB Conc 34.5 32.0-35.0 g/dL Red Cell Distribution Width 13.3 11.9-15.3 % Platelet Count 300 150-450 10*3/uL Mean Platelet Volume 7.5 6.3-10.7 fL Neutrophils % (Auto) 53.2 . % Lymphocytes % (Auto) 37.1 . % Monocytes % (Auto) 7.0 . % Eosinophils % (Auto) 1.7 . % Basophils % (Auto) 1.0 . % NRBC% 0.1 0-0.5 /100{WBC} Neutrophils # (Auto) 4.1 1.8-7.7 10*3/uL Lymphocytes # (Auto) 2.9 1.00-4.8 10*3/uL Monocytes # (Auto) 0.5 0.0-0.8 10*3/uL Eosinophils # (Auto) 0.1 0.0-0.45 10*3/uL Basophils # (Auto) 0.1 0.0-0.2 10*3/uL Vitamin D 25 Hydroxy Reviewed date:12/06/2024 02:20:39 PM Interpretation:Normal Performing Lab: Notes/Report: Reason for Exam Type 2 diabetes mellitus without complications complications;Vitamin D def Vitamin D 25 Hydroxy Total 44.8 30-100 ng/mL VITAMIN D STATUS 25(OH)VITAMIN D RANGE (ng/mL) Deficient <20 Insufficient 20 to <30 Sufficient 30 to 100 Reference: Durga MF,Spenser NC, Soila SUN, et al. Evaluation,treatment, and prevention of vitamin D deficiency; an Endocrine Society clinical practice guideline. JCEM. 2010; 96(7):1911-30. Vit. B12/Folate Profile Reviewed date:12/06/2024 02:20:46 PM Interpretation:Normal Performing Lab: Notes/Report: Reason for Exam Type 2 diabetes mellitus without complications complications;Vitamin D def Vitamin B12 704 180-914 pg/mL Folate 28.0 >5.9 ng/mL Folate reference range: >5.9 ng/ml The WHO technical consultation on folate and vitamin b12 deficiencies has determined that folate concentrations less than 4 ng/ml are considered deficient. Reason For Referral No Information Medications Medication SIG (Take, Route, Frequency, Duration) Notes Start Date End Date Status Citalopram Hydrobromide 40 MG TAKE 1 TABLET BY MOUTH ONCE DAILY 90; Duration: 90 Active Dexcom G6 Sensor - as directed; Duratio n: 30 days Active Dexcom G6 Transmitter - ; Duration: 90 days Active Vitamin B-12 1000 MCG take 1 tablet by m outh once daily; Duration: 30 Active Lancets - as directed 3 times a day and prn; Duration: 30 days Active [place] 32G X 4 MM as directed intra dermally daily; Duration: 90 days 09/08/2024 Active busPIRone HCl 7.5 MG 1 tablet Twice a da y; Duration: 30 days Active metFORMIN HCl ER 500 MG TAKE 2 TABLETS B Y MOUTH 2 TIMES A DAY FOR 15 DAYS; Duration: 15 Active Omeprazole 40 MG take 1 capsule 30 SD NUTES before MORNING MEAL orally once daily; Duration: 60 Active Trulicity 1.5 MG/0.5ML once a week Subcu taneous once a week; Duration: 30 days 03/29/2025 Active Vitamin D (Ergocalciferol) 1.25 MG (47837 UT) take 1 capsule by mouth every week; Duration: 84 Active Dexcom G6 Air Chief [employer] - as directed 09/18/2022 Active Ibuprofen 800 MG TAKE 1 TABLET BY MUSTAPHA TH THREE TIMES A DAY IF NEEDED WITH FOOD OR MILK 20; Duration: 20 Active Phentermine HCl 37.5 MG 1 capsule Orally Once a day; Duration: 30 days 12/28/2024 Active Pravastatin Sodium 20 MG 1 tablet Orally Once a day Active Immunizations Vaccine Route Administration Date Status Comme nts MODERNA IM Intramuscular 10/25/2020 Administered MODERNA IM Intramuscular 11/22/2020 Administered Social History Tobacco Use: Social History Observation Description Date Details (start date - stop date) Never Smoker NA - NA Sex Assigned At : Social History Observation Description Sex Assigned At Female PRAPARE Question Answer Notes Date Completed/Updated: 03/14/2022 What is your current housing situation? I have h ousing Are you worried about losing your housing? No What is the highest level of school that you have finished? 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 Check all that apply I do not have problems meeting my needs Has lack of transportation k ept you from medical appointments, meetings, work or from getting things needed for daily living? No How often do you see or talk to people that you care about and feel close to? (For example: talking to friends on the phone, visiting friends or family, going to anglican or club meetings) More than 5 times a week How stressed are you? Stress is when someone feels tense, nervous, anxious, or cant sleep at night because their mind is troubled A little bit In the past year have you sp ent more than 2 nights in a row in a usp, fci, penitentiary center, or juvenile correctional facility? No Are you a refugee? No What country are you from? [place] Do you feel physically and e motionally safe where you currently live? Yes In the past year, have you b een afraid of your partner or ex-partner? No PRAPARE Score: 3 AUDIT-C (Standard) Question Answer Notes Did you have a drink containing alcohol in the p ast year? 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) Active confirmed Problem Vitamin D deficiency (65823186) Vitamin D deficiency (E55.9) Active confirmed Problem Mixed anxiety and depressive disorder (620354525) Anxiety and depression (F41.9) Active confirmed Problem Depression (903207525) Depression (F32.9) Active confirmed Problem Diabetes mellitus (90682359) Diabetes mellitus (E11.9) Active confirmed Problem Weight gain (264872333) Weight gain (R63.5) Active confirmed Problem Sleep disturbance (03102463) Sleep disturbance (G47.9) Active confirmed Problem Screening for cardiovascular system disease (199978012) Screening for cardiovascular condition (Z13.6) Active confirmed Problem hypercholesterolemia (disorder) (66063555) Hypercholesteremia (E78.00) Active confirmed Problem Acute depression (316465752) Acute depression (F32.9) Active confirmed Problem Solitary nodule of lung (446539425) Lung nodule < 6cm on CT (R91.1) Active confirmed Problem Family history of Crohn's disease (214209074) Family history of Crohn's disease (Z83.79) Active confirmed Problem Postprandial hypoglycemia (234451201) 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 Vital Signs Heart Rate 80 /min 11/27/2024 Temperature 98.1 degrees Fahrenheit 11/27/2024 Respiratory Rate 16 /min 11/27/2024 Blood pressure diastolic 79 mm Hg 11/27/2024 Oximetry 97 % 11/27/2024 Height 68 in 11/27/2024 Blood pressure systolic 125 mm Hg 11/27/2024 Weight 247.3 lbs 11/27/2024 BMI 37.6 kg/m2 11/27/2024 Encounters Encounter Location Date Provider Diagnosis [facility] [address] [place] [address] 12/09/2024 Sherri Le Screening mammogram for breast cancer Z12.31 [facility] [address] [place] [address] 02/24/2024 Aryan Hill Type 2 diabetes mellitus without complications E11.9 and Diabetes mellitus E11.9 [facility] [address] [place] [address] 07/27/2024 Sherri Le [facility] [address] [place] [address] 08/17/2024 Minor Lin [place] [place] [address] 08/28/2024 Sherri Le [address] [place] [address] 09/01/2024 Sherri Le Diabetes mellitus E11.9 [address] [place] [address] 09/18/2024 Sherri Le Diabetes mellitus E11.[address] [place] [address] 11/20/2024 Sherri Le [address] [place] [address] 12/06/2024 Brittani Diallo Type 2 diabetes mellitus without complications E11.9 [facility] [address] [place] [address] 12/29/2024 Sherri Le Type 2 diabetes mellitus without complications E11.9 and Diabetes mellitus E11.9 [facility] [address] [place] [address] 05/06/2024 Sherri Le Type 2 diabetes mellitus without complications E11.9 ; Weight gain R63.5 and Postprandial hypoglycemia E16.1 [facility] [address] [place] [address] 08/13/2024 Minor Lin Type 2 diabetes mellitus without complications E11.9 ; Weight gain R63.5 ; Adult BMI 45.0-49.9 kg/sq m Z68.42 and Encounter for weight management Z76.89 [facility] [address] [place] [address] 09/17/2024 Sherri Le Diabetes mellitus E11.9 ; Encounter for weight management Z76.89 and Anxiety and depression F41.9 [address] [place] [place] [address] 10/15/2024 Sherri Le Diabetes mellitus E11.9 ; Encounter for weight management Z76.89 ; Anxiety and depression F41.9 and Sleep disturbance G47.9 [facility] [address] [place] [address] 11/27/2024 Brittani Diallo Morbid (severe) obesity due to excess calories E66.01 ; Type 2 diabetes mellitus without complications E11.9 ; Vitamin D deficiency E55.9 and Anxiety and depression F41.9 Assessments Encounter Date Diagnosis (ICD Code) Assessment Notes Treatment Notes Treatment Clinical Notes Section Notes 02/24/2024 Type 2 diabetes mellitus without complications (ICD-10 - E11.9) 08/13/2024 Type 2 diabetes mellitus without complications (ICD-10 - E11.9) 08/13/2024 Weight gain (ICD-10 - R63.5) 05/06/2024 Type 2 diabetes mellitus without complications (ICD-10 - E11.9) Pt has excellent glycemic control, and though additional agents for T2DM are not clinically warranted, insurance has mandated failure of this and other meds (previously failed [facility]) in order to approve semiglutide dose increase. Plan on increasing Ozempic pending next A1c check and patient's goals. 05/06/2024 Weight gain (ICD-10 - R63.5) Pt was on steady downward trend from 295lb (September 2021) to 223 (May 2023). In the past 11 months, she has regained over 40 pounds. Monitor given family hx of thyroid issues, recent hx of hair loss, but also changes to Ozempic regimen recently. 09/01/2024 Diabetes mellitus (ICD-10 - E11.9) 09/17/2024 Diabetes mellitus (ICD-10 - E11.9) Pt reports difficulty controlling sugar recently. Dexcom data is reassuring; she is meeting targets of at least 70% in range, less than 25% in high range, and less than 5% in very high range . Patient has not been able to start Victoza but would like to try this option given that Ozempic is no longer covered and she had intolerable side effects with moderate dosing Trulicity. If A1c continues to rise with Victoza, we can again try to get Ozempic covered. 09/17/2024 Encounter for weight management (ICD-10 - Z76.89) Completed 1 month of Adipex with notable weight loss. Denies side effects. Refill sent by another provider today. Follow-up in office in 1 month for weight recheck. 09/18/2024 Diabetes mellitus (ICD-10 - E11.9) 11/27/2024 Type 2 diabetes mellitus without complications (ICD-10 - E11.9) Patient's A1c well controlled today at 5.3%. Reviewed her DEXCOM and she is in range 94% of time and coefficient of variation was 20%. She has not tolerated higher Trulicity doses in past and since she is well controlled, will continue current dosage. Counseled on diet changes. Continue current regimen and will get yearly labs. Foot exam: 02/08 Recommended Medications: On statin therapy Micro/Cr Ratio: Due- ordered today Last A1c: 6% Todays A1c: 5.3% 11/27/2024 Morbid (severe) obesity due to excess calories (ICD-10 - E66.01) Discussed the risks and benefits. Discussed common side effects of Adipex, including dry mouth, constipation, and headache. Patient is to call if she has any side effects. PDMP checked and appropriate. Patient has been tolerating well with no side effects. She has had significant weight loss since starting and has met the 5% weight reduction. She is to continue lifestyle modifications. Follow up 3 months. Starting Weight: 283lbs Today's Weight: 247 lbs Weight Lost: 36lbs Percentage Lost: 12% Starting Month #4 12/06/2024 Type 2 diabetes mellitus without complications (ICD-10 - E11.9) 12/09/2024 Screening mammogram for breast cancer (ICD-10 - Z12.31) 12/29/2024 Type 2 diabetes mellitus without complications (ICD-10 - E11.9) 10/15/2024 Diabetes mellitus (ICD-10 - E11.9) Well-controlled on low-dose Trulicity; AM fasting glucose and variablity through the day are much improved in the past two weeks. Remain on this dose. Due for A1c check next month. Pt agrees to start statin today for long-term kidney health. 10/15/2024 Encounter for weight management (ICD-10 - Z76.89) Completed 2 months of Adipex with notable weight loss. Denies side effects. Follow-up in office in 1 month for weight recheck. 12/29/2024 Diabetes mellitus (ICD-10 - E11.9) 11/27/2024 Vitamin D deficiency (ICD-10 - E55.9) Patient has been on high dose vitamin D supplementation but no recent vitamin D levels. Will get labwork 10/15/2024 Anxiety and depression (ICD-10 - F41.9) PHQ-9 and KAIDEN-7 due at upcoming visit. Discussion potential connection between undertreated symptoms and food cravings/food habits. Pt would like to stay on Cymbalta because other meds prompted mina requiring inpatient care. Can consider adjunct medications for treatment-resistan t depression in the future. 09/17/2024 Anxiety and depression (ICD-10 - F41.9) PHQ-9 and KAIDEN-7 due at upcoming visit. Symptoms are currently worse, which may have impact on sleep, diet, motivation. 05/06/2024 Postprandial hypoglycemia (ICD-10 - E16.1) Using CGM to monitor BG. Ozempic reportedly regulates post-prandial BG much better than metformin. 08/13/2024 Adult BMI 45.0-49.9 kg/sq m (ICD-10 - Z68.42) 02/24/2024 Diabetes mellitus (ICD-10 - E11.9) 08/13/2024 Encounter for weight management (ICD-10 - Z76.89) 11/27/2024 Anxiety and depression (ICD-10 - F41.9) 10/15/2024 Sleep disturbance (ICD-10 - G47.9) Difficulty falling asleep. Decreased quality of sleep with TV on. Provided handout for racing thoughts today. 08/13/2024 Other Body Mass Index : Care Instructions material was published Ms. Hernández is here for follow up. Vitals normal. No notable findings on physical exam. She would like to replicate effect of Ozempic prior to restarting insulin. There is potential to achieve this by way of: 1. Increase to Max dose daily metformin, currently tolerating 1000 mg daily 2. Start Jardiance daily 3. Start Adipex daily She is amenable to all 3. PDMP reviewed. History reviewed, ROS/PMH/FHx negative for cardiac concern. She is busy caring for multiple teenage boys and would like to resume routine 3 month follow ups to recheck A1c which I am okay with as she is compliant, motivated and shows up to her appointents. Will refill Adipex via phone should she wish to continue goal in 5% reduction of weight in 3 months Follow up 3 months. 09/17/2024 Other Body Mass Index : Care Instructions material was published Plan Of Treatment Pending Test Test Name Order Date Comprehensive Metabolic Panel 10/09/2023 Lipid Panel 10/09/2023 Free T4 (Free Thyroxine) 10/09/2023 Thyroid Stim Hormone w/Rflx 10/09/2023 MM screening mammo BI w/CAD 12/09/2024 LDL Cholesterol Measured 10/09/2023 Next Appt Details Provider Name:Minor Lin, 03/03/2025 03:15:00 PM, [address], [place], [address], Insurance Providers Payer Name Payer Address Payer Phone Subscriber Number Group Number Insured Name Patient Relationship to Insured Coverage Start Date Coverage End Date [employer] [place] [employer] [address] [place] [address] [id number] CORNELL HERNÁNDEZ Self - patient is the insured 2 Wrap [facility] [address] [place] [address] [id number] CORNELL HERNÁNDEZ Self - patient is the insured 1 zDENTAL DQ [facility] [place]P [place]-termed 22 [address] [place] [address] [id number] CORNELL HERNÁNDEZ Self - patient is the insured [address] [facility] after [facility] CHP-terme d 22 [address] [place] [address] [phone] [id number] CORNELL HERNÁNDEZ Self - patient is the insured 1 3 zDental UHC [place] Medicaid [address] [place] [address] [id number] CORNELL HERNÁNDEZ Self - patient is the insured 3 5 Dental Wrap [facility] [address] [place] [phone] [id number] CORNELL HERNÁNDEZ Self - patient is the insured 3 Medical (General) History Medical History History ICD Code DM cold urticaria LEVEL 3 undefined Bipolar Type II Surgical History Surgery Date(Month/Year) c-sections X3 hernia repair cholecytectomy total abdominal hysterectomy Hospitalization History Reason Date(Month/Year) surgery 07/2018
--- NOTE | 2025-02-14 18:14 | ED.GENADUL1 ---
HPI HPI - General Adult General Chief complaint: Skin/Abscess/Foreign Body Stated complaint: RIGHT SIDE OF FACE AND NECK HURTS Time Seen by Provider: 02/14/25 18:04 Source: patient Mode of arrival: walk-in History of Present Illness HPI narrative: 45-year-old female presents for a slightly red slightly raised area on her temporal scalp and 2 bumps behind her left ear. She she has had this for several days. No injury. No difficulty breathing or swallowing. She does not complain of a sore throat or any earache. Related Data Home Medications ?Medication ?Instructions ?Recorded ?Confirmed buspirone 7.5 mg tablet 7.5 mg PO DAILY 08/19/23 06/23/24 citalopram 40 mg tablet 40 mg PO DAILY 08/19/23 06/23/24 cyanocobalamin (vitamin B-12) 1,000 mcg PO DAILY 08/19/23 06/23/24 1,000 mcg tablet ergocalciferol (vitamin D2) 1,250 1,250 mcg PO DAILY 08/19/23 06/23/24 mcg (50,000 unit) capsule omeprazole 40 mg capsule,delayed 40 mg PO DAILY 08/19/23 06/23/24 release semaglutide 1 mg/dose (4 mg/3 mL) 1 mg subcut .weekly 08/19/23 06/23/24 subcutaneous pen injector (Ozempic) Previous Rx's ?Medication ?Instructions ?Recorded albuterol sulfate 90 mcg/actuation 1 inh inhalation Q6H PRN shortness 06/23/24 aerosol inhaler of breath or wheezing #8.5 grams methylprednisolone 4 mg tablets in 4 mg PO DAILY #21 ea 06/23/24 a dose pack (Medrol (Ghanshyam)) cephalexin 500 mg capsule 500 mg PO QID 10 days #40 caps 02/14/25 sulfamethoxazole 800 1 tab PO BID 10 days #20 tabs 02/14/25 mg-trimethoprim 160 mg tablet (Bactrim DS) Allergies Allergy/AdvReac Type Severity Reaction Status Date / Time amoxicillin Allergy Mild Unknown Verified 06/23/24 08:13 azithromycin (From Zithromax) AdvReac Mild Unknown Verified 06/23/24 08:13 Penicillins AdvReac Mild Unknown Verified 06/23/24 08:13 Review of Systems ROS Narrative A ten point review of systems is negative except as noted above. PFSH PFSH Social History Smoking status: Former smoker Little interest or pleasure in doing things: not at all Feeling down, depressed, or hopeless: not at all Exam Narrative Exam Narrative: Nurses note and vital signs reviewed and patient is not hypoxic. General: The patient appears well and in no apparent distress. Patient is resting comfortably on cart. Skin: Warm, dry, no pallor noted. There is no rash noted. Head: Normocephalic, atraumatic. On the right temporal scalp is a mildly erythematous slightly raised nonfluctuant none open area. There is no drainage. Eye: Normal conjunctiva, no drainage Ears, Nose, Mouth, and Throat: oral mucosa is moist. Nares patent. Right TM and external canal are normal. She has 2 palpable lymph nodes posterior to the right ear. Cardiovascular: Regular Rate and Rhythm Respiratory: Patient is in no distress, no accessory muscle use, lungs are clear to auscultation, no wheezing, rales or rhonchi Back: non-tender GI: Soft and nontender Musculoskeletal: No joint swelling Neurological: A&O, normal speech Psychiatric: Cooperative Constitutional Vital Signs, click to edit/add: Last Vital Signs Temp 98.3 F 02/14/25 17:52 Pulse 83 02/14/25 17:52 Resp 16 02/14/25 17:52 BP 123/89 02/14/25 17:52 Pulse Ox 98 02/14/25 17:52 O2 Del Method Room Air 02/14/25 17:52 Course Vital Signs Vital signs: Vital Signs Temperature 98.3 F 02/14/25 17:52 Pulse Rate 83 02/14/25 17:52 Respiratory Rate 16 02/14/25 17:52 Blood Pressure 123/89 02/14/25 17:52 Pulse Oximetry 98 02/14/25 17:52 Oxygen Delivery Method Room Air 02/14/25 17:52 Temperature 98.3 F 02/14/25 17:52 Pulse Rate 83 02/14/25 17:52 Respiratory Rate 16 02/14/25 17:52 Blood Pressure 123/89 02/14/25 17:52 Pulse Oximetry 98 02/14/25 17:52 Oxygen Delivery Method Room Air 02/14/25 17:52 Medical Decision Making MDM Narrative Medical decision making narrative: My clinical impression is that she has folliculitis. She is prescribed Bactrim and Keflex and will be discharged home. Treatment diagnosis and follow-up were discussed with the patient. She was given first doses of these antibiotics here. Differential Diagnosis Differential Diagnosis: Abscess, folliculitis, cellulitis Discharge Plan Discharge Chief Complaint: Skin/Abscess/Foreign Body Clinical Impression: Folliculitis, Lymphadenopathy Patient Disposition: Home, Self-Care Time of Disposition Decision: 18:12 Condition: Good Mode of Transportation: Private Vehicle Prescriptions / Home Meds: New sulfamethoxazole-trimethoprim [Bactrim DS] 800-160 mg tablet 1 tab PO BID 10 Days Qty: 20 0RF cephalexin 500 mg capsule 500 mg PO QID 10 Days Qty: 40 0RF No Action citalopram 40 mg tablet 40 mg PO DAILY buspirone 7.5 mg tablet 7.5 mg PO DAILY cyanocobalamin (vitamin B-12) 1,000 mcg tablet 1,000 mcg PO DAILY ergocalciferol (vitamin D2) 1,250 mcg (50,000 unit) capsule 1,250 mcg PO DAILY omeprazole 40 mg capsule,delayed release(DR/EC) 40 mg PO DAILY Ozempic 1 mg/dose (4 mg/3 mL) pen injector 1 mg SUBCUT .weekly albuterol sulfate 90 mcg/actuation HFA aerosol inhaler 1 inh inhalation Q6H PRN (Reason: shortness of breath or wheezing) Qty: 8.5 0RF methylprednisolone [Medrol (Ghanshyam)] 4 mg tablets,dose pack 4 mg PO DAILY Qty: 21 0RF Print Language: Cypriot Instructions: Lymphadenopathy (ED), Folliculitis (ED) Referrals: [facility] [Primary Care Provider] - 1 week
[2025-02-14] MEDS: CEPHALEXIN 500 MG CAPSULE PO (18:29)
[2025-02-14] MEDS: SULFAMETHOXAZOLE/TRIMETHOPRIM 800-160 MG TABLET 1 TAB PO (18:29)
== END 2025-02-14 18:37 | disposition home or self-care (01) ==
PROVIDERS: Emergency Provider Emergency Medicine
DX: L73.9 Follicular disorder, unspecified (principal); R59.1 Generalized enlarged lymph nodes; Z87.891 Personal history of nicotine dependence
CPT/HCPCS: 99283

== ENCOUNTER 2025-06-20 17:16 | Emergency (ER) | payer OTHER, SELFPAY ==
--- OUTSIDE RECORDS SUMMARY | 2024-08-12 04:00 | XMS_ITS ---
Author Organization [facility] Address [address] [place] [address] Care Team Providers Care Change Coordinator Name Role Phone Delia Minor Primary Care Provider [phone] Yasmine Rodriguez [phone] REASON FOR VISIT 3 month f/u DM, A1C Social History Sex Assigned At : Social History Observation Description Sex Assigned At Female Encounters Encounter Location Date Provider Diagnosis [facility] [address] [place] [address] 08/12/2024 Yasmine Rodriguez Plan Of Treatment Next Appt Details Provider Name:Minor Lin, 06/23/2025 03:30:00 PM, [address], [place], [address], Provider Name:Minor Lin, 09/10/2025 10:15:00 AM, [address] [place], [address], Progress Notes * CORNELL HERNÁNDEZ MDOB: [birth year] (45 yo F)Acc No.[id number]:08/12/2024 Progress Notes Patient: iV LAYNE CORNELL Chatterjee Provider:?YASMINE RODRIGUEZ MDDOB:1980 ???Age:44 Y???Sex:FemaleDate:08/12/2024Phone:[phone]:[address] [place], [place]-[address]Pcp:Minor Lin Subjective: * Chief Complaints: * 3 month f/u DM, A1C * Electronic signature of Yasmine Rodriguez MD on 06/20/2025 at 06:42 PM ESTSign off status: Pending * Appointment Provider: Des RODRIGUEZ MD Date: 0 08/12/2024 Generated for Printing/Faxing/eTransmitting on:?06/20/2025 06:42 PM EST
--- OUTSIDE RECORDS SUMMARY | 2024-11-11 06:00 | XMS_ITS ---
Author Organization [facility] Address [address] [place] [address] Care Team Providers Care Automotive Title Clerk Name Role Phone eDlia Minor Primary Care Provider [phone] Yasmine Rodriguez [phone] REASON FOR VISIT 3 month f/u DM, A1C Social History Sex Assigned At : Social History Observation Description Sex Assigned At Female Encounters Encounter Location Date Provider Diagnosis [facility] [address] [place] [address] 11/11/2024 Yasmine Rodriguez Plan Of Treatment Next Appt Details Provider Name:Minor Lin, 06/23/2025 03:30:00 PM, [address], [place], [address], Provider Name:Minor Lin, 09/10/2025 10:15:00 AM, [address] [place], [address], Progress Notes * CORNELL HERNÁNDEZ MDOB: [birth year] (45 yo F)Acc No.[id number]:11/11/2024 Progress Notes Patient: Vi LAYNE CORNELL Chatterjee Provider:?YASMINE RODRIGUEZ MDDOB:1980 ???Age:44 Y???Sex:FemaleDate:11/11/2024Phone:[phone]:[address] [place], [place]-[address]Pcp:Minor Lin Subjective: * Chief Complaints: * 3 month f/u DM, A1C * Electronic signature of Yasmine Rodriguez MD on 06/20/2025 at 06:41 PM ESTSign off status: Pending * Appointment Provider: Des RODRIGUEZ MD Date: 0 11/11/2024 Generated for Printing/Faxing/eTransmitting on:?06/20/2025 06:41 PM EST
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
[2025-06-20 17:22] VITALS: BP 131/91; PULSE 100; TEMP 37; O2SAT 100; BMI 31.9
[2025-06-20 18:01] LABS: SARS-CoV-2 Ag NEGATIVE (NEGATIVE)
--- NOTE | 2025-06-20 18:06 | XR_ITS ---
[facility] [place] [address] Patient Name: CORNELL HERNÁNDEZ MRN: [id number] date: 1980 Sex: F Assigned Patient Location: ER Current Patient Location: ER Accession/Order Number: [id number] Exam Date: 06/20/2025 18:11 Report Date: 06/20/2025 18:27 At the request of: AVA JOE MD Procedure: XR chest 1V XR chest 1V 06/20/2025 6:21 PM SIGNS AND SYMPTOMS: Cough, chest congestion for one week PROTOCOL: Frontal radiograph of the chest COMPARISON: 06/23/2024 FINDINGS: The trachea is midline. The heart and mediastinal structures are within normal limits. The lung parenchyma is clear. The bony thorax is intact. Degenerative changes are noted in the thoracic spine. XR/XR chest 1V IMPRESSION: No acute cardiopulmonary pathology. Impression dictated by: Minor Land M.D. 06/20/2025 6:27 PM Dictation Location: [place] [address] Electronically authenticated by: [id number] Y Date: 06/20/2025 18:27
--- OUTSIDE RECORDS SUMMARY | 2025-06-20 18:41 | XMS_ITS | CCD ---
Author Organization [facility] ion [facility] Care Team Providers Care Lining Marker Name Role Phone [facility] Primary Care Unavaila ble PAY, DR VENTURA Attending Unavailable PAY, DR VENTURA Admitting Unavailable PAY, DR VENTURA Consulting Unavailable MISC, DR SOLORZANO Attending Unavailable MISC, DR SOLORZANO Admitting Unavailable MISC, DR SOLORZANO Consulting Unavailable [facility] Primary Care Unavaila ble MISC, DR SOLORZANO Admitting Unavailable MISC, DR SOLORZANO Consulting Unavailable [facility] Primary Care Unavaila ble MISC, DR SOLORZANO Attending Unavailable [facility] Primary Care Unavaila ble GRECHMELINA, WANG ESPINOZA Consulting Unavailable PAY, DR VENTURA Attending Unavailable PAY, DR VENTURA Admitting Unavailable Bertke, AUDIOLOGY DIRECTOR-C Shady Chatterjee Attending Provider [phone] NON STAFF Primary Care Provider Unavailabl e DO Aryan Borges Attending Provider [facility] Primary Care Provider [phone] MD Jesus Reeder Attending Provider [facility] Primary Care Provider [phone] DO Washington Khan Attending Provider DO Aryan Borges Other Provider [phone] Washington Khan Attending Unavailable [facility] Primary Care Unavaila ble Jacob Brittani Consulting Unavailable Washington Khan Admitting Unavailable Allergies Allergy ClassificationReported Allergen(s)Allergy TypeDate of OnsetReaction(s) Facility (1 source)[facility] ([facility] source)AzithromycinDrug [facility]ergyBl[facility] (1 source)PenicillinDrug [facility]ergyBl[facility] (3 sources)Azithromycin; Translations: [azithromycin]Drug Noicjsu37-69-5999 Difficulty Breathing, Difficulty Breathing, [facility] (3 sources)Penicillins; Translations: [Penicillins]Allergy to substance 81-73-3798ErdgSifvywzlxUniversity [facility] (2 sources)Penicillin; Translations: [penicillin G]Drug Vgsfrxh77-53-0145zrviCincinnati [facility] Medications Current Medications MedicationDrug Class(es)DatesSig (Normalized)Sig (Original)busPIRone hydrochloride 7.5 mg oral tablet (2 sources)Start: 11-26-4542agth 7.5 mg by mouth twice dailyBuspirone Active 7.5 MG PO Twice daily May 14, 2023 12:00amcitalopram 40 mg oral tablet (2 sources)Serotonin Reuptake InhibitorStart: 39-52-7763tufd 40 mg by mouth once dailyCitalopram Active 40 MG PO Daily May 14, 2023 12:00amergocalciferol 1.25 mg oral capsule (2 sources)Provitamin D2 CompoundStart: 01-76-2771ppoj 1250 ug by mouth every weekErgocalciferol (Vitamin D2) Active 1250 MCG PO every week May 14, 2023 12:00amibuprofen 800 mg oral tablet (2 sources)Nonsteroidal Anti-inflammatory DrugStart: 37-67-5981opyq 800 mg by mouth three times dailyIbuprofen Active 800 MG PO Three times daily May 14, 2023 12:00amMultivitamin preparation (2 sources)Start: 86-28-8782fmlr 1 tablet by mouth once dailyMultivitamin Active 1 TAB PO Daily May 14, 2023 12:00amomeprazole 40 mg delayed release oral capsule (2 sources)Proton Pump InhibitorStart: 11-29-0511ruga 40 mg by mouth once daily Omeprazole Active 40 MG PO Daily May 14, 2023 12:00amSemaglutide (2 sources)Start: 14-76-0323nenrgv 1 mg by subcutaneous injection every week Semaglutide (Ozempic) 1 mg/dose (4 mg/3 mL) pen injector Active 1 MG SUBCUT every week May 14, 2023 12:00amvitamin b12 1 mg oral tablet (2 sources)Vitamin Z63Hyznc: 22-14-4048gpcj 1000 ug by mouth once daily Cyanocobalamin (Vitamin B-12) Active 1000 MCG PO Daily May 14, 2023 12:00am Problems Active Problems Problem ClassificationProblemDateDocumented DateEpisodic/ChronicDiabetes mellitus without complication (2 sources)Type 2 diabetes mellitus without complications; Translations: [TYPE 2 DM WITHOUT COMPLICATIONS]Onset: 87-16-6686HkjzmgcBhjg disorders (1 source)Major depressive disorder, single episode, unspecified; Translations: [JANEL DEPRESS D/O SINGLE EPIS UNS]Onset: 84-83-5504IbobjlpFyefv aftercare (1 source)Other shelter (current) drug therapy; Translations: [OTH [facility] CURRENT DRUG THERAPY]Onset: 72-67-1292PnrnqsmsZbzoz connective tissue disease (3 sources)Pain in right thigh; Translations: [PAIN IN RIGHT THIGH]Onset: 29-76-8676EcrbgzusLsefijpcp; thrombophlebitis and thromboembolism (1 source)Phlebitis and thrombophlebitis of superficial vessels of right lower extremity; Translations: [PHLEBITIS AND TP SUP VES RT LOW EXT]Onset: 10-10-2021 EpisodicSubstance-related disorders (1 source)Nicotine dependence, cigarettes, uncomplicated; Translations: [NICOTINE DEPEND CIGARETTES UNCOMP]Onset: 02-98-4628SvduxfxGdwdisitgahe (3 sources)CONTACT W/AND (SUSP) EXPOS COVID-19; Translations: [CONTACT W/AND (SUSP) EXPOS COVID-19]Onset: 07-08-2021 Past or Other Problems Problem ClassificationProblemDateDocumented DateEpisodic/ChronicDisorders of teeth and jaw (5 sources)Jaw pain; Translations: [Periapical abscess without sinus]Onset: 20-95-2276LzidnvlsIgkjd aftercare (1 source)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; Translations: [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]Onset: 79-24-1638GjyivxyjXiltafrr codes; unclassified (1 source)Acquired absence of other specified parts of digestive tract; Translations: [ACQ ABSENCE OTH PART DIGESTV TRACT]Onset: 25-65-1838Iimmknym Residual codes; unclassified (1 source)Acquired absence of both cervix and uterus; Translations: [ACQUIRED ABSENCE BOTH CERVIX AND UTERUS]Onset: 08-94-4855FqsgrsqlEpudgqsgsyev (1 source)CONTACT W/AND (SUSP) EXPOS COVID-19; Translations: [CONTACT W/AND (SUSP) EXPOS COVID-19]Onset: 07-04-2021 Results Test NameValueInterpretationReference RangeFacilityComplete Blood Count Auto Diffon 66-17-9890Jxjkpywai (Bld) [#/Vol]0.1 10*3/uLNormal0.0-0.2The [facility] Physician GroupComment on above:Order Comment: Reason for Exam Type 2 diabetes mellitus without complicationsResult Comment: PERFORMED BY: [place] [address] PATHOLOGIST MEMORIAL DESIGNER DC ISIDRO M.D.Performed By: #### LIPID, [id number], CBC, [id number], TSH3 wRFLX, CMP, URMACRERAT #### [place] [address] USABasophils/100 WBC (Bld)1.0 %Normal.The [facility] Physician GroupComment on above:Order Comment: Reason for Exam Type 2 diabetes mellitus without complicationsPerformed By: #### LIPID, [id number], CBC, [id number], TSH3 wRFLX, CMP, URMACRERAT #### [place] [address] USAEosinophils (Bld) [#/Vol]0.1 10*3/uLNormal0.0-0.45The [facility] Physician GroupComment on above:Order Comment: Reason for Exam Type 2 diabetes mellitus without complicationsPerformed By: #### LIPID, [id number], CBC, [id number], TSH3 wRFLX, CMP, URMACRERAT #### [place] [address] USAEosinophils/100 WBC (Bld)1.7 %Normal.The [facility] Physician GroupComment on above:Order Comment: Reason for Exam Type 2 diabetes mellitus without complicationsPerformed By: #### LIPID, [id number], CBC, [id number], TSH3 wRFLX, CMP, URMACRERAT #### [facility] [address] [place] [id number] USAErythrocyte distribution width (RBC) [Ratio]13.3 %Normal 11.9-15.3The [facility] Physician GroupComment on above:Order Comment: Reason for Exam Type 2 diabetes mellitus without complicationsPerformed By: #### LIPID, [id number], CBC, [id number], TSH3 wRFLX, CMP, URMACRERAT #### [facility] [address] [id number] USAHematocrit (Bld) [Volume fraction]42.8 %Lybnyy28.0-46.4The [facility] Physician GroupComment on above:Order Comment: Reason for Exam Type 2 diabetes mellitus without complicationsPerformed By: #### LIPID, [id number], CBC, [id number], TSH3 wRFLX, CMP, URMACRERAT #### [facility] [address] [place], [place] [address] USAHemoglobin (Bld) [Mass/Vol]14.8 g/jKOjtjmc79.8-15.4The [facility] Physician GroupComment on above:Order Comment: Reason for Exam Type 2 diabetes mellitus without complicationsPerformed By: #### LIPID, [id number], CBC, [id number], TSH3 wRFLX, CMP, URMACRERAT #### [place] [id number] USALymphocytes (Bld) [#/Vol]2.9 10*3/uLNormal1.00-4.8The [facility] Physician GroupComment on above:Order Comment: Reason for Exam Type 2 diabetes mellitus without complicationsPerformed By: #### LIPID, [id number], CBC, [id number], TSH3 wRFLX, CMP, URMACRERAT #### [facility] [address] [place], [place] [id number] USALymphocytes/100 WBC (Bld)37.1 %Normal.The [facility] Physician GroupComment on above:Order Comment: Reason for Exam Type 2 diabetes mellitus without complicationsPerformed By: #### LIPID, [id number], CBC, [id number], TSH3 wRFLX, CMP, URMACRERAT #### [facility] [address] [place] [address] [facility] (RBC) [Entitic mass]30.1 seNvlvus52.7-34.3The [facility] Physician GroupComment on above:Order Comment: Reason for Exam Type 2 diabetes mellitus without complicationsPerformed By: #### LIPID, [id number], CBC, [id number], TSH3 wRFLX, CMP, URMACRERAT #### [facility] [address] [place] [address] [facility] (RBC) [Entitic vol]87.2 qYZjlqow93-939Nlx [facility] Physician GroupComment on above:Order Comment: Reason for Exam Type 2 diabetes mellitus without complicationsPerformed By: #### LIPID, [id number], CBC, [id number], TSH3 wRFLX, CMP, URMACRERAT #### [facility] [address] [place] [address] USAMean Corpuscular HGB Conc34.5 g/wVDadevz98.0-35.0The [facility] Physician GroupComment on above:Order Comment: Reason for Exam Type 2 diabetes mellitus without complicationsPerformed By: #### LIPID, [id number], CBC, [id number], TSH3 wRFLX, CMP, URMACRERAT #### [facility] [address] [place] [address] USAMonocytes (Bld) [#/Vol]0.5 10*3/uLNormal0.0-0.8The [facility] Physician GroupComment on above:Order Comment: Reason for Exam Type 2 diabetes mellitus without complicationsPerformed By: #### LIPID, [id number], CBC, [id number], TSH3 wRFLX, CMP, URMACRERAT #### [facility] [address] [place] [phone] USAMonocytes/100 WBC (Bld)7.0 %Normal.The [facility] Physician GroupComment on above:Order Comment: Reason for Exam Type 2 diabetes mellitus without complicationsPerformed By: #### LIPID, [id number], CBC, [id number], TSH3 wRFLX, CMP, URMACRERAT #### [facility] [address] [place] [phone] USANeutrophils (Bld) [#/Vol]4.1 10*3/uLNormal1.8-7.7The [facility] Physician GroupComment on above:Order Comment: Reason for Exam Type 2 diabetes mellitus without complicationsPerformed By: #### LIPID, [id number], CBC, [id number], TSH3 wRFLX, CMP, URMACRERAT #### [facility] [address] [place] [address] USANeutrophils/100 WBC (Bld)53.2 %Normal.The [facility] Physician GroupComment on above:Order Comment: Reason for Exam Type 2 diabetes mellitus without complicationsPerformed By: #### LIPID, [id number], CBC, [id number], TSH3 wRFLX, CMP, URMACRERAT #### [facility] [address] [place] [address] USANRBC%0.1 /100{WBC}Normal0-0.5The [facility] Comment on above:Order Comment: Reason for Exam Type 2 diabetes mellitus without complicationsPerformed By: #### LIPID, [id number], CBC, [id number], TSH3 wRFLX, CMP, URMACRERAT #### [facility] [address] [place] [address] USAPlatelet mean volume (Bld) [Entitic vol]7.5 fLNormal 6.3-10.7The [facility] Physician GroupComment on above:Order Comment: Reason for Exam Type 2 diabetes mellitus without complicationsPerformed By: #### LIPID, [id number], CBC, [id number], TSH3 wRFLX, CMP, URMACRERAT #### [facility] [address] [place] [phone] USAPlatelets (Bld) [#/Vol]300 10*3/yZOnfwfl234-242Tsd [facility] GroupComment on above:Order Comment: Reason for Exam Type 2 diabetes mellitus without complicationsPerformed By: #### LIPID, [id number], CBC, [id number], TSH3 wRFLX, CMP, URMACRERAT #### [facility] [address] [place] [address] USARBC (Bld) [#/Vol]4.92 10*6/uLNormal3.60-5.00The [facility] GroupComment on above:Order Comment: Reason for Exam Type 2 diabetes mellitus without complicationsPerformed By: #### LIPID, [id number], CBC, [id number], TSH3 wRFLX, CMP, URMACRERAT #### [facility] [address] [place] [address] USAWBC (Bld) [#/Vol]7.7 10*3/uLNormal3.8-11.6The [facility] Physician GroupComment on above:Order Comment: Reason for Exam Type 2 diabetes mellitus without complicationsPerformed By: #### LIPID, [id number], CBC, [id number], TSH3 wRFLX, CMP, URMACRERAT #### [address] [address] USAComprehensive Metabolic Panelon 94-52-1763Ruwmghy [Mass/Vol]4.4 g/dLNormal3.5-5.7The [facility] Physician GroupComment on above: Order Comment: Reason for Exam Type 2 diabetes mellitus without complications complications;Vitamin D defPerformed By: #### LIPID, [id number], CBC, [id number], TSH3 wRFLX, CMP, URMACRERAT #### [address] [address] USAAlbumin/Globulin [Mass ratio]1.7 {ratio}NormalThe [facility] Physician GroupComment on above:Order Comment: Reason for Exam Type 2 diabetes mellitus without complications complications;Vitamin D defPerformed By: #### LIPID, [id number], CBC, [id number], TSH3 wRFLX, CMP, URMACRERAT #### [address] [address] USAALP [Catalytic activity/Vol]63 U/INdbanm66-569Wty [facility] Phys[facility] GroupComment on above:Order Comment: Reason for Exam Type 2 diabetes mellitus without complications complications;Vitamin D defPerformed By: #### LIPID, [id number], CBC, [id number], TSH3 wRFLX, CMP, URMACRERAT #### [facility] [address] [place] [address] USAALT [Catalytic activity/Vol]13 U/LNormal7-52The [facility] Physician GroupComment on above:Order Comment: Reason for Exam Type 2 diabetes mellitus without complications complications;Vitamin D defPerformed By: #### LIPID, [id number], CBC, [id number], TSH3 wRFLX, CMP, URMACRERAT #### [facility] [address] [place] [address] USAAnion gap [Moles/Vol]9.6 mmol/LNormal6.0-15.0The [facility] Physician GroupComment on above:Order Comment: Reason for Exam Type 2 diabetes mellitus without complications complications;Vitamin D defPerformed By: #### LIPID, [id number], CBC, [id number], TSH3 wRFLX, CMP, URMACRERAT #### [facility] [address] [place] [address] USAAST [Catalytic activity/Vol]16 U/IBhoyzl72-95Auy [facility] GroupComment on above:Order Comment: Reason for Exam Type 2 diabetes mellitus without complications complications;Vitamin D defPerformed By: #### LIPID, [id number], CBC, [id number], TSH3 wRFLX, CMP, URMACRERAT #### [facility] [address] [place] [address] USABilirubin [Mass/Vol]0.7 mg/dLNormal0.3-1.0The [facility] Phys[facility] GroupComment on above:Order Comment: Reason for Exam Type 2 diabetes mellitus without complications complications;Vitamin D defPerformed By: #### LIPID, [id number], CBC, [id number], TSH3 wRFLX, CMP, URMACRERAT #### [facility] [address] [place] [address] USACalcium [Mass/Vol]9.5 mg/dLNormal8.6-10.3The [facility] GroupComment on above:Order Comment: Reason for Exam Type 2 diabetes mellitus without complications complications;Vitamin D defPerformed By: #### LIPID, [id number], CBC, [id number], TSH3 wRFLX, CMP, URMACRERAT #### [facility] [address] [place] [address] USAChloride [Moles/Vol]104 mmol/WUqmmzx70-706Osa [facility] Phys[facility] GroupComment on above:Order Comment: Reason for Exam Type 2 diabetes mellitus without complications complications;Vitamin D defPerformed By: #### LIPID, [id number], CBC, [id number], TSH3 wRFLX, CMP, URMACRERAT #### [address] [address] USACO2 [Moles/Vol]30.2 mmol/VZjshtr40.0-31.0The [facility] Phys[facility] GroupComment on above:Order Comment: Reason for Exam Type 2 diabetes mellitus without complications complications;Vitamin D defPerformed By: #### LIPID, [id number], CBC, [id number], TSH3 wRFLX, CMP, URMACRERAT #### [address] [address] USACreatinine [Mass/Vol]0.75 mg/dLNormal0.60-1.20The [facility] GroupComment on above:Order Comment: Reason for Exam Type 2 diabetes mellitus without complications complications;Vitamin D defPerformed By: #### LIPID, [id number], CBC, [id number], TSH3 wRFLX, CMP, URMACRERAT #### [facility] [address] [place] [address] USAGFR/1.73 sq M.predicted MDRD (S/P/Bld) [Vol rate/Area] mL/min/{1.73_m2}NormalThe [facility] GroupComment on above:Order Comment: Reason for Exam Type 2 diabetes mellitus without complications complications;Vitamin D defPerformed By: #### LIPID, [id number], CBC, [id number], TSH3 wRFLX, CMP, URMACRERAT #### [facility] [address] [place] [address] USAGlobulin (S) [Mass/Vol]2.6 g/dLNormalThe [facility] GroupComment on above:Order Comment: Reason for Exam Type 2 diabetes mellitus without complications complications;Vitamin D defPerformed By: #### LIPID, [id number], CBC, [id number], TSH3 wRFLX, CMP, URMACRERAT #### [facility] [address] [place] [address] USAGlucose [Mass/Vol]83 mg/yEGarrvt82-367Qkv [facility] GroupComment on above:Order Comment: Reason for Exam Type 2 diabetes mellitus without complications complications;Vitamin D defResult Comment: Random Glucose Reference Range is dependent on time and content of last meal. Glucose of more than 200 mg/dL in a nonstressed, ambulatory subject supports the diagnosis of Diabetes Mellitus. ADA recommended reference rangePerformed By: #### LIPID, [id number], CBC, [id number], TSH3 wRFLX, CMP, URMACRERAT #### [facility] [address] [place] [address] USAPotassium [Moles/Vol]4.8 mmol/LNormal3.5-5.1The [facility] Physician GroupComment on above:Order Comment: Reason for Exam Type 2 diabetes mellitus without complications complications;Vitamin D defPerformed By: #### LIPID, [id number], CBC, [id number], TSH3 wRFLX, CMP, URMACRERAT #### [facility] [address] [place] [address] USAProtein [Mass/Vol]7.0 g/dLNormal6.4-8.9The [facility] GroupComment on above:Order Comment: Reason for Exam Type 2 diabetes mellitus without complications complications;Vitamin D defPerformed By: #### LIPID, [id number], CBC, [id number], TSH3 wRFLX, CMP, URMACRERAT #### [facility] [address] [place] [address] USASodium [Moles/Vol]139 mmol/WGcwkux365-167Imu [facility] GroupComment on above:Order Comment: Reason for Exam Type 2 diabetes mellitus without complications complications;Vitamin D defPerformed By: #### LIPID, [id number], CBC, [id number], TSH3 wRFLX, CMP, URMACRERAT #### [facility] [address] [place] [phone] USAUrea nitrogen [Mass/Vol]6 mg/dLLow7-e [facility] GroupComment on above:Order Comment: Reason for Exam Type 2 diabetes mellitus without complications complications;Vitamin D defPerformed By: #### LIPID, [id number], CBC, [id number], TSH3 wRFLX, CMP, URMACRERAT #### [facility] [address] [place] [address] USALipid Panelon 12-96-0174Lvdpnjbofhx [Mass/Vol]174 mg/dL Rziijm914-616Hyk [facility] GroupComment on above:Order Comment: Reason for Exam Type 2 diabetes mellitus without complications complications;Vitamin D defResult Comment: Chol less than 200 mg/dl low risk Chol 201-239 mg/dl borderline risk Chol 240 mg/dl and greater high riskPerformed By: #### LIPID, [id number], CBC, [id number], TSH3 wRFLX, CMP, URMACRERAT #### [facility] [address] [place] [address] USACholesterol in HDL [Mass/Vol]50 mg/wYDnupxc96-61Nmk [facility] GroupComment on above:Order Comment: Reason for Exam Type 2 diabetes mellitus without complications complications;Vitamin D defResult Comment: HDL CHOL ATP-III CLASSIFICATION Cardiovascular Risk HDL > or equal to 60 mg/dL LOW HDL < 40 mg/dL HIGHPerformed By: #### LIPID, [id number], CBC, [id number], TSH3 wRFLX, CMP, URMACRERAT #### [facility] [address] [place] [address] USACholesterol.total/Cholesterol in HDL [Mass ratio]3.5 {ratio}Normal<5.0The [facility] GroupComment on above:Order Comment: Reason for Exam Type 2 diabetes mellitus without complications complications;Vitamin D defPerformed By: #### LIPID, [id number], CBC, [id number], TSH3 wRFLX, CMP, URMACRERAT #### [facility] [address] [place] [address] USALDL Cholesterol,Jrlzcyebih458 mg/dLHigh0-100The [facility] GroupComment on above:Order Comment: Reason for Exam Type 2 diabetes mellitus without complications complications;Vitamin D defResult Comment: LDL ATP III CLASSIFICATION LDL less than 100 mg/dL Optimal LDL 100-129 mg/dL Near or above optimal LDL 130-159 mg/dL Borderline high LDL 160-189 mg/dL High LDL greater than 189 mg/dL Very highPerformed By: #### LIPID, [id number], CBC, [id number], TSH3 wRFLX, CMP, URMACRERAT #### [facility] [address] [place] [address] USATriglyceride w/Zfgzev77 mg/dLNormal0-149The [facility] GroupComment on above:Order Comment: Reason for Exam Type 2 diabetes mellitus without complications complications;Vitamin D defResult Comment: TRIG ATP III CLASSIFICATION TRIG less than 150 mg/dL Normal TRIG 150-199 mg/dL Borderline high TRIG 200-500 mg/dL High TRIG greater than 500 mg/dL Very high Standard traceable to the Center for Disease Conrtrol and Prevention (CDC) test method.Performed By: #### LIPID, [id number], CBC, [id number], TSH3 wRFLX, CMP, URMACRERAT #### [facility] [address] [place] [address] USAVLDL SLFDECSKFHN47 mg/dLNormalThe [facility] GroupComment on above:Order Comment: Reason for Exam Type 2 diabetes mellitus without complications complications;Vitamin D defPerformed By: #### LIPID, [id number], CBC, [id number], TSH3 wRFLX, CMP, URMACRERAT #### [facility] [address] [place] [address] USAMicroAlb Creat Ratio,Uon 33-23-8119Qnfopsl DL <= 20 mg/L (U) [Mass/Vol]1.4 mg/dLNormal0.0-1.8The [facility] GroupComment on above:Order Comment: Reason for Exam Type 2 diabetes mellitus without complicationsPerformed By: #### LIPID, [id number], CBC, [id number], TSH3 wRFLX, CMP, URMACRERAT #### [facility] [address] [place] [address] USACreatinine, Urine (Random)246.00 mg/dLNormalThe [facility] GroupComment on above:Order Comment: Reason for Exam Type 2 diabetes mellitus without complicationsResult Comment: No reference range establishedPerformed By: #### LIPID, [id number], CBC, [id number], TSH3 wRFLX, CMP, URMACRERAT #### [address] [address] USAMicroalbumin/Creatinine Ratio5.7 mg/gNormal0.0-30.0The [facility] GroupComment on above:Order Comment: Reason for Exam Type 2 diabetes mellitus without complicationsResult Comment: 30-300 mg/g indicates an increased risk for diabetic nephropathy. Greater than 300 mg/g is consistent with clinical nephropathy. (Am. J. Kidney Disease 1995, 25:107) PERFORMED BY: [place] [id number] PATHOLOGIST [employer]IAL DESIGNER DC ISIDRO M.D.Performed By: #### LIPID, [id number], CBC, [id number], TSH3 wRFLX, CMP, URMACRERAT #### [address] [address] USAThyroid Stim Hormone w/Rflxon 60-06-1818Sozzznx Stim Hormone w/Rflx0.78 u[iU]/mLNormal0.45-5.33The [facility] Physician GroupComment on above:Order Comment: Reason for Exam Type 2 diabetes mellitus without complications complications;Vitamin D defPerformed By: #### LIPID, [id number], CBC, [id number], TSH3 wRFLX, CMP, URMACRERAT #### [facility] [address] [place] [address] USAVit. B12/Folate Profileon 30-91-1314Duteoayag (Vitamin B12) [Mass/Vol]704 pg/fVEdriwi830-869Nas [facility] Physician GroupComment on above:Order Comment: Reason for Exam Type 2 diabetes mellitus without complications complications;Vitamin D defPerformed By: #### LIPID, [id number], CBC, [id number], TSH3 wRFLX, CMP, URMACRERAT #### [facility] [address] [place] [address] MVNImvuto33.0 ng/mLNormal>5.9The [facility] Comment on above:Order Comment: Reason for Exam Type 2 diabetes mellitus without complications complications;Vitamin D defResult Comment: Folate reference range: >5.9 ng/ml The WHO technical consultation on folate and vitamin b12 deficiencies has determined that folate concentrations less than 4 ng/ml are considered deficient.Performed By: #### LIPID, [id number], CBC, [id number], TSH3 wRFLX, CMP, URMACRERAT #### [facility] [address] [place] [address] USAVitamin D 25 Hydroxy Totalon 52-58-0037Tvpgnjp D 25 Hydroxy Total44.8 ng/bYPxehjc55-157Dnh [facility] Physician GroupComment on above:Order Comment: Reason for Exam Type 2 diabetes mellitus without complications complications;Vitamin D defResult Comment: VITAMIN D STATUS 25(OH)VITAMIN D RANGE (ng/mL) Deficient <20 Insufficient 20 to <30 Sufficient 30 to 100 Reference: Durga MF,Spenser NC, Soila SUN, et al. Evaluation,treatment, and prevention of vitamin D deficiency; an Endocrine Society clinical practice guideline. JCEM. 2010; 96(7):1911-30. PERFORMED BY: [address] [address] PATHOLOGIST [employer]IAL DESIGNER DC ISIDRO M.D.Performed By: #### LIPID, [id number], CBC, [id number], TSH3 wRFLX, CMP, URMACRERAT #### [facility] [address]Alanine aminotransferase [Enzymatic activity/volume] in Serum or PlasmaOrdered By: Aryan Borges on 54-16-7053IMN [Catalytic activity/Vol]16 U/L7-52Martin [facility] HospitalAlbumin [Mass/volume] in Serum or Plasma by Bromocresol green (BCG) dye binding methoOrdered By: Aryan Borges on 14-86-8563Gakevlu BCG dye [Mass/Vol]4.4 g/dL3.5-5.7FKettering Memorial HospitalAlkaline phosphatase [Enzymatic activity/volume] in Serum or PlasmaOrdered By: Aryan Borges on 21-32-0838QDR [Catalytic activity/Vol] 60 U/H49-550VxpfijumiMartin Memorial HospitalAspartate aminotransferase [Enzymatic activity/volume] in Serum or PlasmaOrdered By: Aryan Borges on 65-72-6658XUB [Catalytic activity/Vol]16 U/U52-24DxroyiwviMartin Memorial HospitalBilirubin.total [Mass/volume] in Serum or PlasmaOrdered By: Aryan Borges on 47-37-4645Sigljpzra [Mass/Vol]0.6 mg/dL0.3-1.0[facility] HospitalCalcium [Mass/volume] in Serum or PlasmaOrdered By: Aryan Borges on 83-88-8876Firksxc [Mass/Vol]9.4 mg/dL8.6-10.3FKettering Memorial HospitalCarbon dioxide, total [Moles/volume] in Serum or PlasmaOrdered By: Aryan Borges on 38-24-6131JZ9 [Moles/Vol]27.4 mmol/L21.0-31.0[facility] HospitalChloride [Moles/volume] in Serum or PlasmaOrdered By: Aryan Borges on 70-46-1217Oudzctmp [Moles/Vol]105 mmol/L64-067ZmcanboweMartin Memorial HospitalCholesterol [Mass/volume] in Serum or PlasmaOrdered By: Aryan Borges 38-55-4449Griwoiavina [Mass/Vol]194 mg/lF772-995XqtkwpwtqMartin Memorial HospitalComment on above:Chol less than 200 mg/dl low riskChol 201-239 mg/dl borderline riskChol 240 mg/dl and greater high riskCholesterol in LDL Calc [Mass/Vol]Ordered By: Aryan Borges on 05-96-0151Wtelgeyuaoq in LDL [Mass/Vol]124 mg/dL0-100Martin [facility] HospitalComment on above:LDL ATP III CLASSIFICATIONLDL less than 100 mg/dL OptimalLDL 100-129 mg/dL Near or above znpqbwmZDL458-426 mg/dL Borderline highLDL 160-189 mg/dL HighLDL greater than 189 mg/dL Very highCholesterol in LDL [Mass/volume] in Serum or Plasma Ordered By: Aryan Borges on 14-02-3242Unirrahncxp in LDL [Mass/Vol]142 mg/dL 0-100Martin [facility] HospitalComment on above:LDL ATP III CLASSIFICATIONLDL less than 100 mg/dL OptimalLDL 100-129 mg/dL Near or above vvlabcdNBU093-433 mg/dL Borderline highLDL 160-189 mg/dL HighLDL greater than 189 mg/dL Very highCholesterol in VLDL Calc [Mass/Vol]Ordered By: Aryan Borges on 74-11-5458Ysynxvxrhad in VLDL [Mass/Vol]18 mg/dLMartin Memorial HospitalCreatinine [Mass/volume] in Serum or PlasmaOrdered By: Aryan Borges on 65-25-7683Adojxlaawf [Mass/Vol]0.74 mg/dL0.60-1.20Martin Memorial HospitalGlobulin Calc (S) [Mass/Vol]Ordered By: Aryan Borges on 31-49-3004Ulzsdbyv (S) [Mass/Vol]2.8 g/dLMartin Memorial Hospital Glucose [Mass/volume] in Serum or PlasmaOrdered By: Aryan Borges on 35-46-5867Gytyjmu [Mass/Vol]91 mg/aK67-783JhsastptfMartin Memorial Hospital Comment on above:ADA recommended reference rangeRandom Glucose Reference Range is dependent on time and content of last meal. Glucose of more than 200 mg/dL in a nonstressed, ambulatory subject supports the diagnosisof Diabetes Mellitus.No Panel InformationOrdered By: Aryan Borges on 83-01-2414Ywtkfvzrn GFR (CKD-EPI)> 60.0 mL/MinMartin Memorial HospitalPharmacy Creatinine Clearance (ChemN/AFKettering Memorial HospitalPotassium [Moles/volume] in Serum or PlasmaOrdered By: Aryan Borges on 89-53-4031Ffkfdljxj [Moles/Vol] 4.5 mmol/L3.5-5.1FKettering Memorial HospitalProtein [Mass/volume] in Serum or PlasmaOrdered By: Aryan Bogres on 68-91-4792Ionbhni [Mass/Vol]7.2 g/dL 6.4-8.9[facility] Memorialerum or plasma albumin/globulin mass ratioOrdered By: Aryan Borges on 39-61-8322Fyvymtw/Globulin [Mass ratio]1.6 {ratio}[facility] Memorialerum or plasma anion gap determination Ordered By: Aryan Borges on 97-57-1635Ehfmp gap [Moles/Vol]10.1 mmol/L 6.0-15.0[facility] Memorialerum or plasma high density lipoprotein (HDL) cholesterol measurementOrdered By: Aryan Borges on 75-86-6990Qimmlbdnxgv in HDL [Mass/Vol]52 mg/dK28-18EzxebxahvMartin Memorial HospitalComment on above:HDL CHOL ATP-III CLASSIFICATION Cardiovascular RiskHDL > or equal to 60 mg/dL LOWHDL < 40 mg/dL HIGHSerum or plasma total cholesterol/high density lipoprotein (HDL) cholesterol mass ratOrdered By: Aryan Borges on 32-52-1979Hkdhdqlnvft.total/Cholesterol in HDL [Mass ratio] 3.7 {ratio}<5.0[facility] Memorialodium [Moles/volume] in Serum or PlasmaOrdered By: Aryan Borges on 55-98-3438Jokzdo [Moles/Vol]138 mmol/L 136-145Martin Memorial HospitalThyrotropin [Units/volume] in Serum or PlasmaOrdered By: Aryan Borges on 49-17-8040YDZ Qn0.93 m[IU]/L0.45-5.33 [facility] HospitalThyroxine (T4) free [Mass/volume] in Serum or PlasmaOrdered By: Aryan Borges on 17-97-9346Ekxp T4 [Mass/Vol]0.53 ng/dL 0.61-1.12Martin [facility] HospitalTriglyceride [Mass/volume] in Serum or PlasmaOrdered By: Aryan Borges on 35-70-4642Fhlzkbqqgdtz [Mass/Vol]92 mg/dL 0-149Martin [facility] HospitalComment on above:TRIG ATP III CLASSIFICATIONTRIG less than 150 mg/dL NormalTRIG 150-199 mg/dL Borderline highTRIG 200-500 mg/dL High TRIG greater than 500 mg/dL Very highStandard traceable to the Center for Disease Conrtrol and Prevention (CDC) test method. Urea nitrogen [Mass/volume] in Serum or PlasmaOrdered By: Aryan Borges on 23-76-6764Eqsx nitrogen [Mass/Vol]23 mg/dL02-12[facility] Glucose Glucometer (BldC) [Mass/Vol]Ordered By: Jesus Reeder on 56-26-3519Bomixab [Mass/Vol]85 mg/dLMartin Memorial HospitalComment on above:Random Glucose Reference Range is dependent on time and content of last meal. Glucose of more than 200 mg/dL in a nonstressed, ambulatory subject supports the diagnosis of Diabetes Mellitus.Alanine aminotransferase [Enzymatic activity/volume] in Serum or PlasmaOrdered By: Aryan Borges on 74-77-1368RZL [Catalytic activity/Vol]16 U/L7-52Martin [facility] HospitalAlbumin [Mass/volume] in Serum or Plasma by Bromocresol green (BCG) dye binding metho Ordered By: Aryan Borges on 66-84-2293Fpyvoti BCG dye [Mass/Vol]4.2 g/dL 3.5-5.7FKettering Memorial HospitalAlkaline phosphatase [Enzymatic activity/volume] in Serum or PlasmaOrdered By: Aryan Borges on 83-88-0140YLV [Catalytic activity/Vol]66 U/P14-375GcswmyhhhMartin Memorial HospitalAspartate aminotransferase [Enzymatic activity/volume] in Serum or PlasmaOrdered By: Aryan Borges on 88-93-0242ZSI [Catalytic activity/Vol]19 U/Q05-55ZdgvktkvrMartin Memorial HospitalBasophils Auto (Bld) [#/Vol]Ordered By: Aryan Borges on 45-99-9275Zjlulaixr (Bld) [#/Vol]0.1 10*3/uL0.0-0.2FKettering Memorial HospitalBasophils/100 WBC Auto (Bld)Ordered By: Aryan Borges on 01-29-2023 Basophils/100 WBC (Bld)0.8 %.Martin [facility] HospitalBilirubin.total [Mass/volume] in Serum or PlasmaOrdered By: Aryan Borges on 01-29-2023 Bilirubin [Mass/Vol]0.6 mg/dL0.3-1.0Martin Memorial HospitalC reactive protein [Mass/volume] in Serum or PlasmaOrdered By: Aryan Borges on 20-80-6079DAR [Mass/Vol]0.5 mg/dL0.0-0.5FKettering Memorial HospitalCalcium [Mass/volume] in Serum or PlasmaOrdered By: Aryan Borges on 01-29-2023 Calcium [Mass/Vol]9.2 mg/dL8.6-10.3FKettering Memorial HospitalCarbon dioxide, total [Moles/volume] in Serum or PlasmaOrdered By: Aryan Borges on 68-22-9423KR3 [Moles/Vol]29.0 mmol/L21.0-31.0[facility] Chloride [Moles/volume] in Serum or PlasmaOrdered By: Aryan Borges on 04-97-1137Umeaedpe [Moles/Vol]105 mmol/A87-688JapmssdraMartin Memorial Hospital Cholesterol [Mass/volume] in Serum or PlasmaOrdered By: Aryan Borges on 26-96-8556Qqbopmrsobq [Mass/Vol]173 mg/xP050-151BwwvyuujrMartin Memorial HospitalComment on above:Chol less than 200 mg/dl low riskChol 201-239 mg/dl borderline riskChol 240 mg/dl and greater high riskCholesterol in LDL Calc [Mass/Vol]Ordered By: Aryan Borges on 05-67-3120Vzcskypmmee in LDL [Mass/Vol]111 mg/dL0-100Martin [facility] HospitalComment on above:LDL ATP III CLASSIFICATIONLDL less than 100 mg/dL OptimalLDL 100-129 mg/dL Near or above lcgnahiBIS183-949 mg/dL Borderline highLDL 160-189 mg/dL HighLDL greater than 189 mg/dL Very highCholesterol in LDL [Mass/volume] in Serum or Plasma Ordered By: Aryan Borges on 81-84-0902Vyxjyrrvscn in LDL [Mass/Vol]120 mg/dL 0-100Martin [facility] HospitalComment on above:LDL ATP III CLASSIFICATIONLDL less than 100 mg/dL OptimalLDL 100-129 mg/dL Near or above eylcwhvOVW507-803 mg/dL Borderline highLDL 160-189 mg/dL HighLDL greater than 189 mg/dL Very highCholesterol in VLDL Calc [Mass/Vol]Ordered By: Aryan Borges on 85-33-8488Hvwnmrnxklo in VLDL [Mass/Vol]18 mg/dLMartin Memorial HospitalCreatinine [Mass/volume] in Serum or PlasmaOrdered By: Aryan Borges on 12-94-2144Thdgcqxlry [Mass/Vol]0.55 mg/dL0.60-1.20Martin [facility] HospitalEosinophils Auto (Bld) [#/Vol]Ordered By: Aryan Borges on 95-29-2932Wfcpaubtsjf (Bld) [#/Vol]0.2 10*3/uL0.0-0.45Martin [facility] HospitalEosinophils/100 WBC Auto (Bld)Ordered By: Aryan Borges on 35-68-3348Xwkdtncbwph/100 WBC (Bld)1.9 %.Martin Memorial HospitalErythrocyte distribution width Auto (RBC) [Ratio]Ordered By: Aryan Borges on 79-79-7932Xttvgvjyokt distribution width (RBC) [Ratio]13.0 % 11.9-15.3FKettering Memorial HospitalErythrocyte sedimentation rate by Photometric methodOrdered By: Aryan Borges on 96-06-6789QVB Photometric method (Bld) [Velocity]11 mm/hr0-19Martin Memorial HospitalGlobulin Calc (S) [Mass/Vol]Ordered By: Aryan Borges on 96-50-9032Tzvtomzf (S) [Mass/Vol]2.5 g/dLMartin Memorial HospitalGlucose [Mass/volume] in Serum or PlasmaOrdered By: Aryan Borges on 95-18-7289Fhskkqw [Mass/Vol]77 mg/rJ16-208RtgjmyozmMartin Memorial HospitalComment on above:ADA recommended reference rangeRandom Glucose Reference Range is dependent on time and content of last meal. Glucose of more than 200 mg/dL in a nonstressed, ambulatory subject supports the diagnosisof Diabetes Mellitus.Hematocrit Auto (Bld) [Volume fraction]Ordered By: Aryan Borges on 54-25-4557Bicrufsdls (Bld) [Volume fraction]39.2 %34.0-46.4FKettering Memorial HospitalHemoglobin [Mass/volume] in BloodOrdered By: Aryan Borges on 69-27-1062Xkdsmpadoo (Bld) [Mass/Vol]13.3 g/dL11.8-15.4FKettering Memorial HospitalLeukocytes [#/volume] corrected for nucleated erythrocytes in Blood by Automated coun Ordered By: Aryan Borges on 54-61-8636LGK corrected for nucl RBC Auto (Bld) [#/Vol]8.3 10*3/uL3.8-11.6FKettering Memorial HospitalLymphocytes Auto (Bld) [#/Vol]Ordered By: Aryan Borges on 65-96-8136Yfvhydoyhmk (Bld) [#/Vol] 3.4 10*3/uL1.00-4.8Martin Memorial HospitalLymphocytes/100 WBC Auto (Bld)Ordered By: Aryan Borges on 39-03-6096Nrqxzvnummu/100 WBC (Bld)41.5 %. [facility]H Auto (RBC) [Entitic mass]Ordered By: Aryan Borges on 52-03-5410PRQ (RBC) [Entitic mass]30.1 pg24.7-34.3FKettering Memorial HospitalMCHC Auto (RBC) [Mass/Vol]Ordered By: Aryan Borges on 20-19-9258OPCD (RBC) [Mass/Vol]34.0 g/dL32.0-35.0[facility] HospitalMCV Auto (RBC) [Entitic vol]Ordered By: Aryan Borges on 20-90-6412LPY (RBC) [Entitic vol]88.6 wE61-171VitzblvqvMartin Memorial HospitalMonocytes Auto (Bld) [#/Vol]Ordered By: Aryan Borges on 79-90-2493Gcdctbisn (Bld) [#/Vol] 0.5 10*3/uL0.0-0.8Martin [facility] HospitalMonocytes/100 WBC Auto (Bld) Ordered By: Aryan Borges on 61-65-3646Wqkxdulhl/100 WBC (Bld)5.7 %.[facility] HospitalNeutrophils Auto (Bld) [#/Vol]Ordered By: Aryan Borges on 79-77-1432Xijybuoqwzi (Bld) [#/Vol]4.1 10*3/uL1.8-7.7FKettering Memorial HospitalNeutrophils/100 WBC Auto (Bld)Ordered By: Aryan Borges on 00-05-2200Vhkjlhowgtf/100 WBC (Bld)50.1 %.[facility] HospitalNo Panel InformationOrdered By: Aryan Borges on 01-29-2023 Estimated GFR (CKD-EPI)> 60.0 mL/MinMartin Memorial HospitalPharmacy Creatinine Clearance (ChemN/AFKettering Memorial HospitalNucleated erythrocytes [Presence] in Blood by Automated countOrdered By: Aryan Borges on 64-78-3654Xlprgfutt RBC Auto Ql (Bld)0.1 /100{WBC}0-0.5FKettering Memorial HospitalPlatelet mean volume Auto (Bld) [Entitic vol]Ordered By: Aryan Borges on 30-01-8607Wyuovwft mean volume (Bld) [Entitic vol]8.4 fL6.3-10.7 [facility] HospitalPlatelets Auto (Bld) [#/Vol]Ordered By: Aryan Borges on 19-80-4792Qrbjuabiz (Bld) [#/Vol]257 10*3/tL360-564OjitvelrlMartin Memorial HospitalPotassium [Moles/volume] in Serum or PlasmaOrdered By: Aryan Borges on 01-38-8824Fnllqmfpb [Moles/Vol]4.3 mmol/L3.5-5.1FKettering Memorial HospitalProtein [Mass/volume] in Serum or PlasmaOrdered By: Aryan Borges on 80-29-3982Imamhje [Mass/Vol]6.7 g/dL6.4-8.9Martin [facility] HospitalRBC Auto (Bld) [#/Vol]Ordered By: Aryan Borges on 55-42-9149WPL (Bld) [#/Vol]4.42 10*6/uL3.60-5.00[facility] Memorialerum or plasma albumin/globulin mass ratioOrdered By: Aryan Borges on 53-13-6491Ljxylaz/Globulin [Mass ratio]1.7 {ratio}[facility] Memorialerum or plasma anion gap determinationOrdered By: Aryan Borges on 11-01-5562Dpuvm gap [Moles/Vol]10.3 mmol/L6.0-15.0[facility] Memorialerum or plasma high density lipoprotein (HDL) cholesterol measurement Ordered By: Aryan Borges on 55-82-5293Hwanlqvdbam in HDL [Mass/Vol]44 mg/dL 23-92Martin [facility] HospitalComment on above:HDL CHOL ATP-III CLASSIFICATION Cardiovascular RiskHDL > or equal to 60 mg/dL LOWHDL < 40 mg/dL HIGHSerum or plasma total cholesterol/high density lipoprotein (HDL) cholesterol mass ratOrdered By: Aryan Borges on 23-57-8168Njrhkexijrm.total/Cholesterol in HDL [Mass ratio]3.9 {ratio}<5.0[facility] Memorialodium [Moles/volume] in Serum or PlasmaOrdered By: Aryan Borges on 01-29-2023 Sodium [Moles/Vol]140 mmol/S453-485AhkbnjnrxMartin Memorial HospitalTriglyceride [Mass/volume] in Serum or PlasmaOrdered By: Aryan Borges on 01-29-2023 Triglyceride [Mass/Vol]90 mg/dL0-149Martin [facility] HospitalComment on above:TRIG ATP III CLASSIFICATIONTRIG less than 150 mg/dL NormalTRIG 150-199 mg/dL Borderline highTRIG 200-500 mg/dL High TRIG greater than 500 mg/dL Very highStandard traceable to the Center for Disease Conrtrol and Prevention (CDC) test method.Urea nitrogen [Mass/volume] in Serum or PlasmaOrdered By: Aryan Borges on 99-67-8439Hjaz nitrogen [Mass/Vol]11 mg/dL7-25Martin [facility] HospitalWBC Auto (Bld) [#/Vol]Ordered By: Aryan Borges on 01-29-2023 WBC (Bld) [#/Vol]8.3 10*3/uL3.8-11.6FKettering Memorial HospitalAlbumin [Mass/volume] in Serum or PlasmaOrdered By: Shady Riley on 76-15-8131Ulbokco [Mass/Vol]3.6 g/dL3.2-5.5FKettering Memorial HospitalBasophils Auto (Bld) [#/Vol]Ordered By: Shady Riley on 43-35-4025Kwccjpdhc (Bld) [#/Vol]0.1 10*3/uL 0.0-0.2FKettering Memorial HospitalBasophils/100 WBC Auto (Bld)Ordered By: Shady Riley on 99-11-8819Egzpuvghe/100 WBC (Bld)1.3 %.[facility] HospitalBlood hemoglobin measurement (mass/volume)Ordered By: Shady Riley on 51-05-7086Vnsptuxefk (Bld) [Mass/Vol]14.1 g/dL11.8-15.4FKettering Memorial HospitalBlood leukocytes automated count (number/volume)Ordered By: Shady Riley on 57-16-3963RLF (Bld) [#/Vol]7.6 10*3/uL4.5-11.0[facility] HospitalCholesterol [Mass/volume] in Serum or PlasmaOrdered By: Shady Riley on 92-69-6851Onhcmtwkjql [Mass/Vol]175 mg/iY139-860DzmkrjbfbMartin Memorial HospitalComment on above:Chol less than 200 mg/dl low risk Chol 201-239 mg/dl borderline risk Chol 240 mg/dl and greater high riskCholesterol in LDL Calc [Mass/Vol]Ordered By: Shady Riley on 98-28-6361Xginjvtmijy in LDL [Mass/Vol]108 mg/dL0-100 [facility] HospitalComment on above:LDL ATP III CLASSIFICATION LDL less than 100 mg/dL Optimal LDL 100-129 mg/dL Near or above optimal LDL 130-159 mg/dL Borderline high LDL 160-189 mg/dL High LDL greater than 189 mg/dL Very highCholesterol in VLDL Calc [Mass/Vol]Ordered By: Shady Riley on 97-39-5856Cggqksifiax in VLDL [Mass/Vol]26 mg/dLMartin Memorial HospitalCreatinine and Glomerular filtration rate.predicted panel (S/P/Bld)Ordered By: Shady Riley on 79-32-7801Hiokjvxbep [Mass/Vol]0.67 mg/dL 0.44-1.03Martin [facility] HospitalEosinophils Auto (Bld) [#/Vol]Ordered By: Shady Riley on 64-80-8362Ggnkymueedt (Bld) [#/Vol]0.2 10*3/uL0.0-0.45 [facility] HospitalEosinophils/100 WBC Auto (Bld)Ordered By: Shady Riley on 33-75-0330Nolimdzqpzm/100 WBC (Bld)2.4 %.[facility] HospitalErythrocyte distribution width Auto (RBC) [Ratio]Ordered By: Shady Riley on 96-42-9856Ijxlehvigda distribution width (RBC) [Ratio]12.8 % 11.9-15.3FKettering Memorial HospitalEstimated glomerular filtration rate (GFR) non- AmericanOrdered By: Shady Riley on 43-24-9954EOJ/1.73 sq M.predicted among non-blacks MDRD (S/P/Bld) [Vol rate/Area]> 60 mL/MinMartin Memorial HospitalGlobulin Calc (S) [Mass/Vol]Ordered By: Shady Riley on 26-25-8303Mwbwjrcf (S) [Mass/Vol]2.8 g/dLMartin Memorial Hospital Hematocrit Auto (Bld) [Volume fraction]Ordered By: Shady Riley on 03-14-2022 Hematocrit (Bld) [Volume fraction]42.8 %34.0-46.4FKettering Memorial HospitalLaboratory - Hematology and Cell countsOrdered By: Shady Riley on 64-06-1942Cxpzwwdvy RBC/100 WBC (Bld) [Ratio]0.1 %0-0.5FKettering Memorial HospitalLymphocytes Auto (Bld) [#/Vol]Ordered By: Shady Riley on 90-19-8121Sgblerislqu (Bld) [#/Vol]2.9 10*3/uL1.00-4.8Martin [facility] HospitalLymphocytes/100 WBC Auto (Bld)Ordered By: Shady Riley on 03-14-2022 Lymphocytes/100 WBC (Bld)38.6 %.[facility]H Auto (RBC) [Entitic mass]Ordered By: Shday Riley on 69-60-7101YOK (RBC) [Entitic mass] 28.8 pg24.7-34.3FKettering Memorial HospitalMCHC Auto (RBC) [Mass/Vol] Ordered By: hSady Riley on 94-82-1674OBJK (RBC) [Mass/Vol]32.9 g/dL32.0-35.0 [facility] HospitalMCV Auto (RBC) [Entitic vol]Ordered By: Shady Riley on 55-81-0756TOO (RBC) [Entitic vol]87.4 sQ58-137ViotvnswiMartin Memorial HospitalMonocytes Auto (Bld) [#/Vol]Ordered By: Shady Riley on 05-22-7207Cjoptqxel (Bld) [#/Vol]0.5 10*3/uL0.0-0.8Martin [facility] HospitalMonocytes/100 WBC Auto (Bld)Ordered By: Shady Riley on 03-14-2022 Monocytes/100 WBC (Bld)6.8 %.[facility] HospitalNeutrophils Auto (Bld) [#/Vol]Ordered By: Shady Riley on 81-72-2022Jrywrqsbqjo (Bld) [#/Vol]3.9 10*3/uL1.8-7.7FKettering Memorial HospitalNeutrophils/100 WBC Auto (Bld) Ordered By: Shady Riley on 37-31-9595Sfyypnzofvk/100 WBC (Bld)50.9 %.[facility] HospitalNo Panel InformationOrdered By: Shady Riley on 60-75-0146Xhltoxhda GFR ()> 60 mL/MinMartin Memorial HospitalComment on above:GFR estimated reference range: According to KDOQI guidelines, <60 ml/min/1.73m2 is sufficient todiagnose a patient with chronic kidney disease.Pharmacy Creatinine Clearance (ChemN/[facility] CenterPlatelet mean volume Auto (Bld) [Entitic vol]Ordered By: Shady Riley on 83-95-9217Elweuwjo mean volume (Bld) [Entitic vol]8.4 fL6.3-10.7FKettering Memorial HospitalPlatelets Auto (Bld) [#/Vol]Ordered By: Shady Riley on 60-24-7886Ykdmrpwqk (Bld) [#/Vol]253 10*3/bZ529-577RgvnviyorMartin Memorial HospitalProtein [Mass/volume] in Serum or PlasmaOrdered By: Shady Riley on 33-84-2621Lghylnu [Mass/Vol]6.4 g/dL6.1-7.9Martin [facility] HospitalRBC Auto (Bld) [#/Vol]Ordered By: Shady Riley on 63-72-9083NES (Bld) [#/Vol]4.90 10*6/uL3.60-5.00[facility] Memorialerum or plasma alanine aminotransferase measurement without P-5'-P (enzymatic activiOrdered By: Shady Riley on 54-83-0551GBG No additional P-5'-P [Catalytic activity/Vol]54 U/L10-60 [facility] Memorialerum or plasma albumin/globulin mass ratio Ordered By: Shady Riley on 82-27-1083Bctkhng/Globulin [Mass ratio]1.3 {ratio} [facility] Memorialerum or plasma alkaline phosphatase measurement (enzymatic activity/volume)Ordered By: Shady Riley on 03-14-2022 ALP [Catalytic activity/Vol]74 U/B04-28KllicktlkKettering Health Greene Memorialerum or plasma aspartate aminotransferase measurement (enzymatic activity/volume)Ordered By: Shady Riley on 57-66-8777CFA [Catalytic activity/Vol]42 U/U39-24ZuuaxdndxKettering Health Greene Memorialerum or plasma calcium measurement (mass/volume)Ordered By: Shady Riley on 36-39-6666Xzvxrlp [Mass/Vol]9.0 mg/dL8.2-10.2FFayette County Memorial Hospitalerum or plasma chloride measurement (moles/volume) Ordered By: Shady Riley on 72-39-0316Axaelsss [Moles/Vol]102 mmol/L95-114 [facility] Memorialerum or plasma glucose measurement (mass/volume)Ordered By: Shady Riley on 98-45-5688Immlhbt [Mass/Vol]143 mg/dL 70-100Martin [facility] HospitalComment on above:ADA recommended reference range Random Glucose Reference Range is dependent on time and content of last meal. Glucose of more than 200 mg/dL in a nonstressed, ambulatory subject supports the diagnosis of Diabetes Mellitus.Serum or plasma high density lipoprotein (HDL) cholesterol measurementOrdered By: Shady Riley on 54-17-8003Onwxmztzsbi in HDL [Mass/Vol]40 mg/bD04-73UtxliiplpMartin Memorial HospitalComment on above:HDL CHOL ATP-III CLASSIFICATION Cardiovascular Risk HDL > or equal to 60 mg/dL LOW HDL < 40 mg/dL HIGHSerum or plasma potassium measurement (moles/volume)Ordered By: Shady Riley on 92-12-8221Ssriwpcfb [Moles/Vol]4.1 mmol/L3.5-5.1FFayette County Memorial Hospitalerum or plasma sodium measurement (moles/volume)Ordered By: Shady Riley on 22-12-2678Ydvyms [Moles/Vol]134 mmol/K772-098VqcjhwtefKettering Health Greene Memorialerum or plasma total bilirubin measurement (mass/volume) Ordered By: Shady Riley on 11-98-0823Tnfzlgpol [Mass/Vol]0.6 mg/dL0.3-1.2 [facility] Memorialerum or plasma total carbon dioxide measurement (moles/volume)Ordered By: Shady Riley on 43-55-8276HD6 [Moles/Vol] 25.9 mmol/L22.0-30.0[facility] Memorialerum or plasma total cholesterol/high density lipoprotein (HDL) cholesterol mass ratOrdered By: Shady Riley on 04-03-1032Svgdzuuaegh.total/Cholesterol in HDL [Mass ratio]4.4 {ratio}<5.0K[facility]tering [facility] Memorialerum or plasma urea nitrogen measurement (mass/volume)Ordered By: Shadysenia Riley on 64-88-2142Admb nitrogen [Mass/Vol]7 mg/dL9-23[facility] HospitalTS DL <= 0.005 mIU/L Qn Ordered By: Shadysenia Riley on 82-93-3324HIB Qn0.72 m[IU]/L0.45-5.33[facility] HospitalTriglyceride [Mass/volume] in Serum or PlasmaOrdered By: Shady Riley on 08-80-6470Qwstggasqpsj [Mass/Vol]133 mg/qW12-240CjiunrvtxMartin Memorial HospitalComment on above:TRIG ATP III CLASSIFICATION TRIG less than 150 mg/dL Normal TRIG 150-199 mg/dL Borderline high TRIG 200-500 mg/dL High TRIG greater than 500 mg/dL Very high Standard traceable to the Center for Disease Conrtrol and Prevention (CDC) test method.Covid-19 PCR ([facility])on 07-12-1759YXIG-CoV-2 (COVID-19) RNA SHAMEKA+probe Ql (Unsp spec)Not detectedNormalNOT DETECTEDThe [facility] HospitalComment on above: Result Comment: This test is not yet approved or cleared by the [place] FDA. When there are no FDA-approved or cleared tests available, and other criteria are met, FDA can make tests available under an emergency access mechanism called an Emergency Use Authorization (EUA). The EUA for this test is supported by the Building Rental Manager of Health and Human Service's (HHS's) declaration [...] of clinical signs and symptoms consistent with SARS-CoV-2.Performed By: #### CVDTBH #### [facility] [address] [place] [address] Dr. Socorro LyonCovid-19 PCR ([facility])on 58-38-0838BBCT-CoV-2 (COVID-19) RNA SHAMEKA+probe Ql (Unsp spec)Not detectedNormalNOT DETECTEDThe [facility] Comment on above:Result Comment: This test is not yet approved or cleared by the [place] FDA. When there are no FDA-approved or cleared tests available, and other criteria are met, FDA can make tests available under an emergency access mechanism called an Emergency Use Authorization (EUA). The EUA for this test is supported by the Building Rental Manager of Health and Human Service's (HHS's) declaration that circumstances exist to justify the emergency use of in vitro diagnostics for the detection and/or diagnosis of the virus that causes COVID- 19. This EUA will remain in effect (meaning [...] of clinical signs and symptoms consistent with SARS-CoV-2.Performed By: #### [facility] #### [facility] [address] [id number] Lynne Person Vital Signs Date TimeVital SignValuePerforming PmtlzodrxVthssett00-60-1836 13:17-0400 Diastolic blood updizsds66 mm[Hg]Services [facility] Taulia Phone: [facility]10-25-2023 13:17-0400 Heart rate70 /minSFreshdesk Work Phone: [facility]10-25-2023 13:17-0400 Respiratory rate14 /minServBioClinica [facility] Work Phone: [facility]10-25-2023 13:17-0400 SaO2% (BldA) [Mass fraction]100 %Services [employer] Phone: [facility]10-25-2023 13:17-0400 Systolic blood nqnrnhxy839 mm[Hg]Services [employer] Work Phone: [facility]10-25-2023 09:50-0400 Body .72 cmServices [facility] Work Phone: [phone] [place], [place] [address]410-25-2023 09:50-0400 Body jvclezybagn55.7 [degF]Services [facility] Work Phone: [phone]10-25-2023 09:50-0400 Body mbmazs49.79 kgServicRiverside Health System Work Phone: [phone] [place] [address] Encounters Encounter DateEncounter TypeCare ProviderFacilityStart: 12-04-2024 End: 88-59-8422dmbjnpteanYnsq BrunerFacility:[facility] Start: 12-18-2023 End: 53-60-0848wzkwsufpvdDczyiszn [facility] Work Phone: [phone] [place] [address] Ctr Work Phone: Start: 12-18-2023 End: 96-40-2839Rkgcapk encounter procedureServNovant Health [facility] Work Phone: [phone] [place] [address] Ctr-Lab [facility] [place] Work Phone: Start: 05-15-2023 End: 16-65-9132Frqrwvysq to same day surgery [facility] Work Phone: [phone] [place] [address] Ctr-[facility] Work Phone: Start: 05-15-2023 End: 41-06-6712lbjbaapaipBhlvlkby Family [facility] Work Phone: [facility] Work Phone: Start: 01-29-2023 End: 54-44-1743tfbblhtmkyBF Joseph Parenteau Work Phone: [facility] Work Phone: Start: 01-29-2023 End: 55-90-1514Nrbkaptw ReferredDO Aryan Borges Work Phone: [facility] ServicesStart: 03-14-2022 End: 92-84-5875Gczhcmti Reji Riley Work Phone: [facility] ServicesStart: 10-07-2021 End: 80-91-3230wecywsawbuUTEKXB SERVICES FAMILYFacility:M9Oidjt: 07-04-2021 End: 25-84-6695cabgwwroveCS DOCTOR MISCFacility:X0Yqpea: 03-23-2021 End: 27-64-6292mrlvwwdvnnLP DOCTOR MISCFacility:T2Rcznh: 03-03-2021 End: 21-84-8502tuukhyvwjvTJFQTF SERVICES FAMILYFacility:H1 Procedures DateProcedureProcedure DetailPerforming ClinicianStart: 32-55-6913Xlqiidfkbpf Services [facility] Work Phone: Plan of Treatment DateCare ActivityDetailAuthorStart: 35-19-7834DxixtlizqMartin Memorial Hospital Patient EducationHemorrhoids (DC) Diverticulosis (DC)[facility] Work Phone: Payers DatePayer CategoryPayerPolicy [id number] Health [id number] ..[id number] ..[id number] Social History DateTypeDetailFacilityTobacco smoking status NHISUnknown if ever smokedHocking Valley Community Hospital [facility]tr Work Phone: Start: 81-81-2439[facility] Medical Centertart: 52-06-3617Qzfadty smoking status NHISNever smoked tobacco (finding)[facility] Goals DatePatient GoalDesired Activity/State Procedure note 05-15-2023 Note Date & ObymSfdgVqsheiwq83-27-4412 Procedure noteMartin Memorial Hospital Evaluation note Note Date & TypeNoteFacilityEvaluation noteNo assessment information available [facility] Work Phone: Hospital Discharge instructions Note Date & TypeNoteFacilityHospital Discharge instructions Additional Instructions DISCHARGE INSTRUCTIONS FOR [...] years. -Follow up with PCP. -Office number [phone]. [facility] Work Phone: Summary Purpose Family History No Family History Records Found Relationship Condition Age at Onset Recorded Date/T cali grandparent Diabetes mellitus Unknown Heart diseaseUnknownfatherDiabetes mellitusUnknownsisterDiabetes mellitusUnknown Crohn's diseaseUnknownbrotherCrohn's diseaseUnknownMalignant neoplasm of skin Unknown Relationship Condition Age at Onset Recorded Date/T cali grandparent Diabetes mellitus Unknown Heart diseaseUnknownfatherDiabetes mellitusUnknownsisterDiabetes mellitusUnknown Crohn's diseaseUnknownbrotherCrohn's diseaseUnknownMalignant neoplasm of skin UnknownbrotherDiabetes mellitusUnknownfatherFamily history of mental disorder UnknownDiabetes mellitusUnknownNot SpecifiedMalignant neoplasmUnknown Advance Directives No Advanced Directives Records Found Advance Directive Response Recorded Date/ Time Advance Directives No May 2:03pm Chief Complaint and Reason for Visit Chief Complaint e11.9 Chief Complaint family hx crohn's di sease Chief Complaint R63.5 E11.9 Additional Source Comments INFORMATION SOURCE (unrecogn ized section and content) DATE CREATED AUTHOR 10/10/2021 [facility] DATE CREATED AUTHOR AUTHOR'S ORGANIZ ATION 12/18/2024 [facility] Care Teams (unrecognized sec tion and content) Team Status: Inactive Member Role Status Dates CONCETTA Robledo Attending Provider Active NON STAFFPrimary Care ProviderActive Team Status: Active Member Role Status Dates NON STAFF Primary Care Provider Active Team Status: Inactive Member Role Status Dates Aryan Borges DO RES Attending Provider Active Team Status: Active Member Role Status Dates Services [facility] Primary Care Provider Active Team Status: Inactive Member Role Status Dates Services [facility] Primary Care Provider Active ImFrederick Louieending ProviderActive Team Status: Inactive Member Role Status Dates Services [facility] Primary Care Provider Active Start: December 18, 2023 End: December 17ausudhir Olveraer Pavel ProviderActiveStart: December 18, 2023 End: December 18, 2023Joseph DO Jony RESAlbin ProviderActiveStart: December 18, 2023 End: December 18, 2023 [...] BE BASED ON THE PRIMARY CLINICAL RECORDS. [employer] provides no warranty or guarantee of the accuracy or completeness of information in this document.
--- OUTSIDE RECORDS SUMMARY | 2025-06-20 18:42 | XMS_ITS | Patient Health Record ---
Author Organization [facility] Address [address] [place] [address] Care Team Providers Care Experimental Assembler Name Role Phone Minor Lin Primary Care Provider Sherri Le Unavailable [phone] Brittani Diallo Unavailable [phone] Allergies Allergen (clinical drug ingredient) Drug/Non Drug Allergy documented on EMR Reaction Allergy Type Onset Date Status Information temporarily unavailable Zithromax shortness o f breath Drug Allergy ActiveInformation temporarily unavailablePenicillinrashDrug AllergyActive Results Component Value Reference Range Flag Notes Hemoglobin A1c Reviewed date:06/10/2025 03:33:57 PM Interpretation:5.0% Performing Lab: Notes/Report: 5.0% Hemoglobin A1c 5.0% 5 - 7.9 % Hemoglobin A1c Reviewed date:11/27/2024 04:09:09 PM Interpretation: Performing Lab: Notes/Report: Hemoglobin A1c5.3%5 - 7.9 %Hemoglobin A1c Reviewed date:03/03/2025 03:51:21 PM Interpretation:5.0% Performing Lab: Notes/Report: 5.0%Hemoglobin A1c5.0%5 - 7.9 %Complete Blood Count Auto Diff Reviewed date:12/06/2024 02:21:07 PM Interpretation:Normal Performing Lab:, [facility], [address] [place] [place] Notes/Report: Reason for Exam Type 2 diabetes mellitus without complicationsWhite Blood Count7.73.8-11.6 10*3/uLNUncorrected WBC7.73.8-11.6 10*3/uLNRed Blood Count4.923.60-5.00 10*6/rFHQzoxnlguwx16.811.8-15.4 g/dLN Sbcmwwuitn27.834.0-46.4 %NMean Corpuscular Ndipgf77.280-100 fLNMean Corpuscular Xkxfvtblmx61.124.7-34.3 pgNMean Corpuscular HGB Conc34.532.0-35.0 g/dLNRed Cell Distribution Width13.311.9-15.3 %NPlatelet Hsptt040846-228 10*3/uLNMean Platelet Volume7.56.3-10.7 fLNNeutrophils % (Auto)53.2. %Lymphocytes % (Auto)37.1. % Monocytes % (Auto)7.0. %Eosinophils % (Auto)1.7. %Basophils % (Auto)1.0. %NRBC% 0.10-0.5 /100{WBC}NNeutrophils # (Auto)4.11.8-7.7 10*3/uLNLymphocytes # (Auto) 2.91.00-4.8 10*3/uLNMonocytes # (Auto)0.50.0-0.8 10*3/uLNEosinophils # (Auto)0.1 0.0-0.45 10*3/uLNBasophils # (Auto)0.10.0-0.2 10*3/uLNVitamin D 25 Hydroxy Reviewed date:12/06/2024 02:20:39 PM Interpretation:Normal Performing Lab: Notes/Report: Reason for Exam Type 2 diabetes mellitus without complications complications;Vitamin D defVitamin D 25 Hydroxy Total44.830-100 ng/mLN VITAMIN D STATUS 25(OH)VITAMIN D RANGE (ng/mL) Deficient <20 Insufficient 20 to <30 Sufficient 30 to 100 Reference: Durga MF,Spenser NC, Soila SUN, et al. Evaluation,treatment, and prevention of vitamin D deficiency; an Endocrine Society clinical practice guideline. JCEM. 2010; 96(7):1911-30. Vit. B12/Folate Profile Reviewed date:12/06/2024 02:20:46 PM Interpretation:Normal Performing Lab: Notes/Report: Reason for Exam Type 2 diabetes mellitus without complications complications;Vitamin D defVitamin [id number] pg/rCZYtxjya79.0>5.9 ng/mL Folate reference range: >5.9 ng/ml The WHO technical consultation on folate and vitamin b12 deficiencies has determined that folate concentrations less than 4 ng/ml are considered deficient. Thyroid Stim Hormone w/Rflx Reviewed date:12/06/2024 02:20:56 PM Interpretation:Normal Performing Lab: Notes/Report: Reason for Exam Type 2 diabetes mellitus without complications complications;Vitamin D defThyroid Stim Hormone w/Rflx0.780.45-5.33 u[iU]/mLN Lipid Panel Reviewed date:12/06/2024 02:26:40 PM Interpretation: Performing Lab: Notes/Report: Reason for Exam Type 2 diabetes mellitus without complications complications;Vitamin D pcaKifrrmcxpiw326226-400 mg/dLN Chol less than 200 mg/dl low risk Chol 201-239 mg/dl borderline risk Chol 240 mg/dl and greater high risk HDL Ngsadmydxfh8788-82 mg/dLN HDL CHOL ATP-III CLASSIFICATION Cardiovascular Risk HDL > or equal to 60 mg/dL LOW HDL < 40 mg/dL HIGH Triglyceride w/Bpzjwr693-922 mg/dLN TRIG ATP III CLASSIFICATION TRIG less than 150 mg/dL Normal TRIG 150-199 mg/dL Borderline high TRIG 200-500 mg/dL High TRIG greater than 500 mg/dL Very high Standard traceable to the Center for Disease Conrtrol and Prevention (CDC) test method. LDL Cholesterol,Lhnzjcarpw5624-359 mg/dLH LDL ATP III CLASSIFICATION LDL less than 100 mg/dL Optimal LDL 100-129 mg/dL Near or above optimal LDL 130-159 mg/dL Borderline high LDL 160-189 mg/dL High LDL greater than 189 mg/dL Very high VLDL LCBELGEWUJR02Evwv/HDL Ratio3.5<5.0Comprehensive Metabolic Panel Reviewed date:12/06/2024 02:21:26 PM Interpretation: Performing Lab:, [facility], [address], [place] Notes/Report: Reason for Exam Type 2 diabetes mellitus without complications complications;Vitamin D vsrLsaqyun5839-381 mg/dLN Random Glucose Reference Range is dependent on time and content of last meal. Glucose of more than 200 mg/dL in a nonstressed, ambulatory subject supports the diagnosis of Diabetes Mellitus. ADA recommended reference range Blood Urea Qmvahdsn79-26 mg/dLLCreatinine0.750.60-1.20 mg/uWRQpiact720560-524 mmol/LNPotassium4.83.5-5.1 mmol/MCZgkuqpmk64050-209 mmol/LNCarbon Xwqgzuu91.2 21.0-31.0 mmol/LNCalcium9.58.6-10.3 mg/dLNTotal Protein7.06.4-8.9 g/dLNAlbumin Level4.43.5-5.7 g/dLNGlobulin2.6Albumin/Globulin Ratio1.7Bilirubin,Total0.70.3- 1.0 mg/dLNAspartate Amino Xxqrodvnjhn7870-03 U/LNAlanine Dfnnhesvmeswemaz218-99 U/LNAlkaline Alufrkotjqy5215-080 U/LNEstimated GFR>60.0Anion Gap9.66.0-15.0 meq/LNMicroAlb Creat Ratio,U Reviewed date:12/06/2024 02:20:31 PM Interpretation: Performing Lab:, [facility], [address] [place] Notes/Report: Reason for Exam Type 2 diabetes mellitus without complicationsMicroalbumin, Urine1.40.0-1.8 mg/dLNCreatinine, Urine (Random) 246.00No reference range establishedMicroalbumin/Creatinine Ratio5.70.0-30.0 mg/gN 30-300 mg/g indicates an increased risk for diabetic nephropathy. Greater than 300 mg/g is consistent with clinical nephropathy. (Am. J. Kidney Disease 1994, 25:107) Hemoglobin A1c Reviewed date:08/13/2024 04:43:40 PM Interpretation:6.0 Performing Lab: Notes/Report: 6.0Hemoglobin A1c6.05 - 7.9 % Reason For Referral No Information Medications Medication SIG (Take, Route, Frequency, Duration) Notes Start Date End Date Status Phentermine HCl 37.5 MG Capsule 1 capsule Orally daily; Duration: 30 days 5ActiveVitamin D3 50 MCG (2000 UT) Capsule1 capsule Orally Once a day; Duration: 90 days5ActiveVitamin B-12 1000 MCG Tablettake 1 tablet by mouth once daily; Duration: 30 daysActivemetFORMIN HCl ER 500 MG Tablet Extended Release 24 Hour1 tablet Orally daily; Duration: 30 days Not-Taking/PRNCitalopram Hydrobromide 40 MG Tablet1 tablet Orally daily; Duration: 90 daysActivePravastatin Sodium 20 MG Tablet1 tablet Orally Once a day ActivebusPIRone HCl 7.5 MG Tablet1 tablet Twice a day; Duration: 90 days 08/25/2025ctiveOmeprazole 40 MG Capsule Delayed Releasetake 1 capsule 30 MINUTES before MORNING MEAL orally once daily; Duration: 60ActiveIbuprofen 600 MG TabletTAKE 1 TABLET BY MOUTH EVERY 12 HOURS NEEDED FOR PAIN WITH FOOD OR MILK; Duration: 30Active Immunizations Vaccine Route Administration Date Status Comme nts MODERNA IM Intramuscular 10/25/2020 Administered MODERNAIM Pmceehbuqkikx19/04/2021dministered Social History Tobacco Use: Social History Observation Description Date Details (start date - stop date) Never Smoker NA - NA Sex Assigned At : Social History Observation Description Sex Assigned At Female Social History Social DeterminantsSocial InfoQuestionAnswerNotesPRAPAREDate Completed/Updated: 03/14/2022What is your current housing situation?I have housingAre you worried about losing your housing?NoWhat is the highest level of school that you have finished?High school diploma or GEDWhat is your current work situation?maritime guard workIn the past year, have you or any family members you live with been unable to get any of the following when it was really needed? Check all that applyI do not have problems meeting my needsHas lack of transportation kept you from medical appointments, meetings, work or from getting things needed for daily living?NoHow often do you see or talk to people that you care about and feel close to? (For example: talkingto friends on the phone, visiting friends or family, going to jehovah's witness or club meetings)More than 5 times a weekHow stressed are you? Stress is when someone feels tense, nervous, anxious, or cant sleep at night because their mind is troubledA little bitIn the past year have you spent more than 2 nights in a row in a prison, halfway, long-term center, orjuvenile correctional facility?NoAre you a refugee?NoWhat country are you from?[place]Do you feel physically and emotionally safe where you currently live?YesIn the past year, have you been afraid of your partner or ex-partner?NoPRAPARE Score:3GeneralSocial InfoQuestionAnswerNotesTransition of Care:ER/UC/hospital since last office visit?NoSpecialist [...] hurting yourself in some wayNot at allTotal Yewxe2PebhdzpbucavoSitm Depression Substance abuse/mental health issues of patient/familyPatient -Caffeine Use4 cups a dayAbility to understand healthcare/treatmentPatient:GoodSexual Hx:Had sex in the last 12 months (vaginal, oral, or anal)?Yes? withMen only? Use protection?NoHave you ever had an STD?NoLMP:n/aSocial/Support Concerns:Patient: NoBehaviors affecting healthPoor/Risky Behaviors:Denies-Communication Barrier: Language Barrier?:NoDrug/Alcohol:Social InfoQuestionAnswerNotesAUDIT-C (Standard)Did you have a drink containing alcohol in the past year?NoPoints0 InterpretationNegativeTobacco Use:Social InfoQuestionAnswerNotesTobacco Control (Standard)Tobacco use:Nonsmoker Problems Problem Type SNOMED Code ICD Code Onset Dates Problem Status W/U Status Risk Notes Problem Information temporarily unavaila ble Screening for cardiovascular condition (Z13.6) ActiveconfirmedProblemInformation temporarily unavailableFamily history of Crohn's disease (Z83.79)ActiveconfirmedProblemInformation temporarily unavailableBMI 33.0-33.9,adult (Z68.33)ActiveconfirmedProblemInformation temporarily unavailableLung nodule < 6cm on CT (R91.1)ActiveconfirmedProblem Information temporarily unavailableNoncompliance with medications (Z91.148) ActiveconfirmedProblemInformation temporarily unavailableImpaired judgment (R41.89)ActiveconfirmedProblemInformation temporarily unavailableMourning (R45.89)ActiveconfirmedProblemInformation temporarily unavailableSleep disturbance (G47.9)ActiveconfirmedProblemInformation temporarily unavailable Vitamin D deficiency (E55.9)Remission phaseconfirmedProblemInformation temporarily unavailableType 2 diabetes mellitus in remission (E11.9)Remission phaseconfirmedProblemInformation temporarily unavailableLong term (current) use of insulin (Z79.4)Problem resolvedconfirmedProblemInformation temporarily unavailableAcute depression (F32.9)Problem resolvedconfirmedProblemInformation temporarily unavailablePostprandial hypoglycemia (E16.1)Problem resolved confirmedProblemInformation temporarily unavailableMorbid (severe) obesity due to excess calories (E66.01)ActiveconfirmedProblemInformation temporarily unavailableDepression (F32.9)ActiveconfirmedProblemInformation temporarily unavailableHypercholesteremia (E78.00)ActiveconfirmedProblemInformation temporarily unavailableAnxiety (F41.9)ActiveconfirmedProblemInformation temporarily unavailableAnxiety and depression (F41.9)ActiveconfirmedProblem Information temporarily unavailableWeight gain (R63.5)ActiveconfirmedProblem Information temporarily unavailableRecurrent major depressive disorder, in partial remission (F33.41)ActiveconfirmedProblemInformation temporarily unavailableBMI 34.0-34.9,adult (Z68.34)ActiveconfirmedProblemInformation temporarily unavailableBipolar 2 disorder (F31.81)ActiveconfirmedProblem Information temporarily unavailableIllness anxiety disorder (F45.21)Active confirmed Vital Signs Heart Rate 75 /min 06/10/2025 Nxcvtjljafv88.3 degrees Cxdrnkyxbl17/20/2025Respiratory Rate18 /min06/10/2025 Vyjlvvfj08 %06/10/2025lood pressure mm Hg06/10/20254386Sphlof94 in 06/10/2025lood pressure sajmkovd372 mm Hg06/10/20255809Dmpttv782 lbs108/10/2024MI 33.3 kg/m206/10/2025 Encounters Encounter Location Date Provider Diagnosis [facility] [address] [place] [address] 06/10/2025 Minor Lin Type 2 diabetes mellitus in remission E11.9 ; Encounter for weight management Z76.89 ; Vitamin D deficiency E55.9 ; Bipolar 2 disorder F31.81 ; Mourning R45.89 ; Type 2 diabetes mellitus without complications E11.9 ; Insurance coverage problems Z59.71 ; Financial difficulty Z59.9 and BMI 33.0-33.9,adult Z68.33 [facility] [address] [place] [address] 08/13/2024 Minor Lin Type 2 diabetes mellitus without complications E11.9 ; Weight gain R63.5 ; Adult BMI 45.0-49.9 kg/sq m Z68.42 and Encounter for weight management Z76.89 [facility] [address] [place] [address] 09/17/2024 Sherri Le Diabetes mellitus E11.9 ; Encounter for weight management Z76.89 and Anxiety and depression F41.9 [facility] [address] [place] [address] 10/15/2024 Sherri Le Diabetes mellitus E11.9 ; Encounter for weight management Z76.89 ; Anxiety and depression F41.9 and Sleep disturbance G47.9 [facility] [address] [place] [address] 11/27/2024 Brittani Diallo Morbid (severe) obesity due to excess calories E66.01 ; Type 2 diabetes mellitus without complications E11.9 ; Vitamin D deficiency E55.9 and Anxiety and depression F41.9 [facility] [address] [place] [address] 03/03/2025 Minor Simmonsalil Type 2 diabetes mellitus without complications E11.9 ; BMI 34.0-34.9,adult Z68.34 ; Anxiety F41.9 and Recurrent major depressive disorder, in partial remission F33.41 [facility] [address] [place] [address] 04/08/2025 Minor Lin Noncompliance with medications Z91.148 ; Type 2 diabetes mellitus in remission E11.9 ; Bipolar 2 disorder F31.81 ; Illness anxiety disorder F45.21 ; Encounter for weight management Z76.89 and Impaired judgment R41.89 [facility] [address] [place] [address] 07/27/2024 [facility] [place] [address]/[facility] [place] [address] 08/28/2024[facility] [place] [address]/05/2025Rebecca HowardDiabetes mellitus E11.9[facility] [address] [place] [address]/Rebecca HowardDiabetes mellitus E11.9[address] [place] [address]/08/2024 [facility] [place] [address] 12/06/2024Samantha zzzMasonType 2 diabetes mellitus without complications E11.9 [facility] [place] [address]/ [facility] Z12.31[facility] [address] [place] [address]/04/2025Rebecca HowardType 2 diabetes mellitus without complications E11.9 and Diabetes mellitus E11.9[facility] [place] [address]/10/2024[facility] [place] [address]/02/2025[facility] [place] [address] 03/31/2025[facility] [place] [address]/05/2025Mark KhalilType 2 diabetes mellitus without complications E11.9 and Diabetes mellitus E11.9[facility] [place] [address]/[facility] [place] [address]/12/2024Mark KhalilAnxiety and depression F41.9 Assessments Encounter Date Diagnosis (ICD Code) Assessment Notes Treatment Notes Treatment Clinical Notes Section Notes 08/13/2024 Type 2 diabetes mellitus without complications (ICD-10 - E11.9) 08/13/2024Weight gain (ICD-10 - R63.5)09/01/2024Diabetes mellitus (ICD-10 - E11.9)09/17/2024Diabetes mellitus (ICD-10 - E11.9) Pt reports difficulty controlling sugar recently. Dexcom data is reassuring; she is meeting targetsof at least 70% in range, less than [...] can again try to get Ozempic covered. 09/17/2024Encounter for weight management (ICD-10 - Z76.89)Completed 1 month of Adipex with notable weight loss. Denies side effects. Refill sent by another pr ovider today. Follow-up in office in 1 month for weight recheck.09/18/2024 Diabetes mellitus (ICD-10 - E11.9)11/27/2024Type 2 diabetes mellitus without complications (ICD-10 - [...] today Last A1c: 6% Todays A1c: 5.3% 11/27/2024Morbid (severe) obesity due to excess calories (ICD-10 [...] 36lbs Percentage Lost: 12% Starting Month #4 12/06/2024Type 2 diabetes mellitus without complications (ICD-10 - E11.9) 12/09/2024Screening mammogram for breast cancer (ICD-10 - Z12.31)12/29/2024Type 2 diabetes mellitus without complications (ICD-10 - E11.9)10/15/2024Diabetes mellitus (ICD-10 - E11.9)Well-controlled on low-dose Trulicity; AM fasting glucose and variablity through the day are much improved in the past two weeks. Remain on this dose. Due for A1c check next month. Pt agrees to startstatin today for long-term kidney health.03/03/2025Type 2 diabetes mellitus without complications (ICD-10 - E11.9)03/03/2025MI 34.0-34.9,adult (ICD-10 - Z68.34) 04/01/2025Type 2 diabetes mellitus without complications (ICD-10 - E11.9) 04/08/2025Noncompliance with medications (ICD-10 - Z91.148)04/08/2025Type 2 diabetes mellitus in remission (ICD-10 - E11.9)05/27/2025nxiety and depression (ICD-10 - F41.9)06/10/2025Encounter for weight management (ICD-10 - Z76.89) 06/10/2025Type 2 diabetes mellitus in remission (ICD-10 - E11.9)06/10/2025 Vitamin D deficiency (ICD-10 - E55.9)10/15/2024Encounter for weight management (ICD-10 - Z76.89)Completed 2 months of Adipex with notable weight loss. Denies side effects. Follow-up in office in 1 month for weight recheck.04/01/2025 Diabetes mellitus (ICD-10 - E11.9)04/08/2025ipolar 2 disorder (ICD-10 - F31.81) 03/03/2025nxiety (ICD-10 - F41.9)12/29/2024Diabetes mellitus (ICD-10 - E11.9) 11/27/2024Vitamin D deficiency (ICD-10 - E55.9)Patient has been on high dose vitamin D supplementation but no recent vitamin D levels. Will get labwork 10/15/2024nxiety and depression (ICD-10 - F41.9)PHQ-9 and KAIDEN-7 due at upcoming visit. Discussion potential connection between undertreated symptoms and food cravings/food habits. Pt would like to stay on Cymbalta because other meds prompted maniarequiring inpatient care. Can consider adjunct medications for treatment-resistant depression in the future.09/17/2024nxiety and depression (ICD-10 - F41.9)PHQ-9 and KAIDEN-7 due at upcoming visit. Symptoms are currently worse, which may have impact on sleep, diet, motivation.08/13/2024dult BMI 45.0-49.9 kg/sq m (ICD-10 - Z68.42)08/13/2024Encounter for weight management (ICD-10 - Z76.89)11/27/2024nxiety and depression (ICD-10 - F41.9)03/03/2025 Recurrent major depressive disorder, in partial remission (ICD-10 - F33.41) 10/15/2024Sleep disturbance (ICD-10 - G47.9)Difficulty falling asleep. Decreased quality of sleep with TV on. Provided handout for racing thoughts today. 04/08/2025Illness anxiety disorder (ICD-10 - F45.21)06/10/2025ipolar 2 disorder (ICD-10 - F31.81)04/08/2025Encounter for weight management (ICD-10 - Z76.89) 06/10/2025Mourning (ICD-10 - R45.89)06/10/2025Type 2 diabetes mellitus without complications (ICD-10 - E11.9)04/08/2025Impaired judgment (ICD-10 - R41.89) 06/10/2025Insurance coverage problems (ICD-10 - Z59.71)06/10/2025Financial difficulty (ICD-10 - Z59.9)06/10/2025MI 33.0-33.9,adult (ICD-10 - Z68.33) 06/10/2025OtherBody Mass Index: Care Instructions material was published [...] control with secondary benefit for management of aia-hrrqynr-oagmdufay diabetes 2. Medication affordability, insurance transition; patient will be losing Medicaid, will move to hide elective employer plan. She is concerned about medication cost-Educated on GoodRx, benefactor coupons. GoodRx cards provided.- Discussed transferring prescriptions to alternative pharmacies, such [facility] [employer] known for lower pricing. patient was offered [...] now-Patient to explore lower cost statinalternatives via GoodRx and report back 6. Encounter for weight management, obesity; ongoing weight loss less, down 7 pounds with phentermine and lifestyle changes-Okay to continue phentermine indefinitely, patient reports good tolerance-Patient educated and reassured phentermine cost affordability Follow-up in 3 months or sooner for any concerns and recheck A1c. 08/13/2024OtherBody Mass Index: Care Instructions material was published Ms. Hernández is here for follow up. Vitals normal. No notable findings on physical exam. She would like to replicate effect of Ozempic prior to restarting insulin. There is potential to achieve this byway of: 1. Increase to Max dose daily [...] in 3 months Follow up 3 months. 09/17/2024OtherBody Mass Index: Care Instructions material was published 03/03/2025Other Vitals reviewed and appropriate. Physical exam is notable for weight loss since our last visit in July. Psych exam, mood and affect somewhat flat, eye contact often distracted midsentence. 1. Bipolar type 2 depressive predominant with history of hospitalization for suicidality. No active SI/HI. Compliant with citalopram 40 mg and takes buspar daily. Reports breakthrough depression characterized by demotivation and mood changes. She is hesitant to make any changes to her medications today. Recommend focused visit to answer questions, focus on symptoms and further medication education. No reported recurrence of hypomania/mina Continue citalopram, buspirone today. 2. Medication assisted weight loss on phentermine daily, BMI 34.48 from 43 on Day 1 Adipex. Will continue adipex daily. As above. 3. T2DM, A1c 5.0% in office today, hesitant to de-escalate hypoglycemic agents. Concern for serum glucose fluctuations present, no Dexcom resistor tester logs to review today. Recommend she return with logsto review in person. Given 60 lb weight loss in 8 months, decreased appetite on appetite suppressent medication with reported mood changes. Recommend de-escalating hypoglycemia agents. Will decrease metformin from 1000 mg to 500 mg twice daily. 4. Anxious, illness related anxiety, PTSD; hesitant to make any changes, discontinue CGM despite A1c 5.0% or consider new meds today. Recollects memory of complications seen in first degree relativeswith diabetes in vivid detail; asserts concern for amputation. Recommend follow up in 4 weeks to revist discussion on mood, check A1c and review CGM logs. 04/08/2025OtherBody Mass Index: Care Instructions material was published Vitals reviewed and appropriate. Physical exam is notable for weight loss since visit for weight loss in July. Psych exam, anxious mood and affect somewhat flat, good eye contact, somewhat oppositional with impaired judgment. 1. Bipolar type 2 depressive predominant with history of hospitalization for suicidality. No active SI/HI or reported recurrence of hypomania/mina. Reports no breakthrough depression, demotivation or mood changes. Compliant with citalopram 40 mg and takes buspar daily. 2. Medication assisted weight loss on phentermine daily, BMI 34 from 43 on Day 1 of Adipex. Will continue adipex daily. As above. 3. T2DM, in remission, A1c 5.0% in office last visit, Dexcom resistor tester logs to reviewed and 95% avg within range of goal. Given 60 lb weight loss in 9 months, decreased appetite on appetite suppressent medication with reported mood changes. Recommend de-escalating hypoglycemia agents. Will decrease metformin from 1000 mg to 500 mg daily. 4. Anxious, illness related anxiety; hesitant, oppositional to medical advice. Reported intermittently using previously discontinued supply of SGLT2 inhibitor despite DM in remission for some time. Patient educated of health risks not limited to hypoglycemia, ketoacidosis, volume depletion, UTI. 5. Noncompliance with medications, impaired judgment; as above.Bipolar 2, depression and anxiety well-established risk factors for poor medication adherence.Education provided to both patient and partner of importance and potential consequences of misuse. 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 Should a dverse health event occur interim recommend further pig furnace operator involvement in treatment decision making and monitoring. Recommend follow up in 2 month follow up to revist discussion on mood, check A1c and review CGM logs. Plan Of Treatment Pending Test Test Name Order Date Comprehensive Metabolic Panel 10/09/2023 Lipid Panel 10/09/2023 Free T4 (Free Thyroxine) 10/09/2023 Thyroid Stim Hormone w/Rflx 10/09/2023 MM screening mammo BI w/CAD 12/09/2024 LDL Cholesterol Measured 10/09/2023 Next Appt Details Provider Name:Minor Lin, 06/23/2025 03:30:00 PM, [address], [place], [address], Provider Name:Minor Saeed Lin, 09/10/2025 10:15:00 AM, [address], [place], [address], Insurance Providers Payer Name Payer Address Payer Phone Subscriber Number Group Number Insured Name Patient Relationship to Insured Coverage Start Date Coverage End Date [employer] [place] Medicaid [address] [place] [address] [id number] Catracho HERNÁNDEZ - patient is the [id number]/10/2022[facility] [address] [place] [id number], JESSICASelf - patient is the [id number]/21/2021zDENTAL [facility] [place]-ter[place] 08/21/22[address] [place] [id number], JESSICASelf - patient is the [id number] MEDICAID [facility] [facility]/22[address] [place] [id number], JESSICASelf - patient is the [id number] UHC [place] MedicaidPO [address] [place] [id number] Catracho HERNÁNDEZ - patient is the onuvmja76/03/2025Dental [facility] [address] [place] [id number], JESSICASelf - patient is the [id number]/2022 Medical (General) History Medical History History ICD Code DM cold urticariaLEVEL 3undefinedBipolar Type IIAcute depression (resolved 06/13/2025)F32.9Long term (current) use of insulin (resolved 06/13/2025)Z79.4 Postprandial hypoglycemia (resolved 06/13/2025)E16.1Surgical History Surgery Date(Month/Year) c-sections X3 hernia repaircholecytectomytotal abdominal hysterectomyHospitalization History Reason Date(Month/Year) surgery 07/2018
--- NOTE | 2025-06-20 18:43 | ED.GENADUL1 ---
HPI HPI - General Adult General Chief complaint: Upper Respiratory Infection Stated complaint: cough Time Seen by Provider: 06/20/25 18:02 Source: patient Mode of arrival: walk-in History of Present Illness HPI narrative: 45-year-old female presents for cough. She has had it for 2 weeks and is mostly nonproductive. No hemoptysis or fever. She has an old albuterol inhaler and it was only helping a little bit. No fever. Related Data Home Medications ?Medication ?Instructions ?Recorded ?Confirmed buspirone 7.5 mg tablet 7.5 mg PO DAILY 08/19/23 06/23/24 citalopram 40 mg tablet 40 mg PO DAILY 08/19/23 06/23/24 cyanocobalamin (vitamin B-12) 1,000 mcg PO DAILY 08/19/23 06/23/24 1,000 mcg tablet ergocalciferol (vitamin D2) 1,250 1,250 mcg PO DAILY 08/19/23 06/23/24 mcg (50,000 unit) capsule omeprazole 40 mg capsule,delayed 40 mg PO DAILY 08/19/23 06/23/24 release semaglutide 1 mg/dose (4 mg/3 mL) 1 mg subcut .weekly 08/19/23 06/23/24 subcutaneous pen injector (Ozempic) Previous Rx's ?Medication ?Instructions ?Recorded albuterol sulfate 90 mcg/actuation 1 inh inhalation Q6H PRN shortness 06/23/24 aerosol inhaler of breath or wheezing #8.5 grams methylprednisolone 4 mg tablets in 4 mg PO DAILY #21 ea 06/23/24 a dose pack (Medrol (Ghanshyam)) cephalexin 500 mg capsule 500 mg PO QID 10 days #40 caps 02/14/25 sulfamethoxazole 800 1 tab PO BID 10 days #20 tabs 02/14/25 mg-trimethoprim 160 mg tablet (Bactrim DS) albuterol sulfate 90 mcg/actuation 2 inh inhalation Q4H PRN shortness 06/20/25 aerosol inhaler of breath or wheezing #8.5 grams benzonatate 100 mg capsule 100 mg PO TID PRN cough #20 caps 06/20/25 prednisone 10 mg tablet See Rx Instructions .Route 06/20/25 .COMPLEX #30 tabs Allergies Allergy/AdvReac Type Severity Reaction Status Date / Time amoxicillin Allergy Mild Unknown Verified 06/23/24 08:13 azithromycin (From Zithromax) AdvReac Mild Unknown Verified 06/23/24 08:13 Penicillins AdvReac Mild Unknown Verified 06/23/24 08:13 Review of Systems ROS Narrative A ten point review of systems is negative except as noted above. PFSH PFSH Social History Smoking status: Former smoker Little interest or pleasure in doing things: not at all Feeling down, depressed, or hopeless: not at all Exam Narrative Exam Narrative: Nurses note and vital signs reviewed General:The patient appears well and in no apparent distress.Patient is resting comfortably on cart. Skin:Warm, dry, no pallor noted.There is no rash noted. Head:Normocephalic, atraumatic Eye: Normal conjunctiva, no drainage Ears, Nose, Mouth, and Throat: oral mucosa is moist. Nares patent. Cardiovascular:Regular Rate and Rhythm Respiratory:Patient is in no distress, no accessory muscle use, lungs are clear to auscultation, no wheezing, rales or rhonchi Back:non-tender GI: Soft and nontender Musculoskeletal: The patient has no evidence of calf tenderness, no pitting edema, symmetrical pulses noted bilaterally Neurological:A&O, normal speech Psychiatric:Cooperative Constitutional Vital Signs, click to edit/add: Last Vital Signs Temp 98.6 F 06/20/25 17:22 Pulse 100 H 06/20/25 17:22 Resp 18 06/20/25 17:22 BP 131/91 06/20/25 17:22 Pulse Ox 100 06/20/25 17:22 O2 Del Method Room Air 06/20/25 17:22 Course Vital Signs Vital signs: Vital Signs Temperature 98.6 F 06/20/25 17:22 Pulse Rate 100 H 06/20/25 17:22 Respiratory Rate 18 06/20/25 17:22 Blood Pressure 131/91 06/20/25 17:22 Pulse Oximetry 100 06/20/25 17:22 Oxygen Delivery Method Room Air 06/20/25 17:22 Temperature 98.6 F 06/20/25 17:22 Pulse Rate 100 H 06/20/25 17:22 Respiratory Rate 18 06/20/25 17:22 Blood Pressure 131/91 06/20/25 17:22 Pulse Oximetry 100 06/20/25 17:22 Oxygen Delivery Method Room Air 06/20/25 17:22 Medical Decision Making MDM Narrative Medical decision making narrative: Chest x-ray, COVID, and influenza test are all negative. She is prescribed Tessalon, prednisone, and albuterol. My clinical impression is that she has a viral URI. Treatment diagnosis and follow-up were discussed with the patient. Lab Data Lab results reviewed: Yes I reviewed the patient's lab results Labs: Lab Results 06/20/25 Range/Units 17:27 Influenza Type A Ag Negative Influenza Type B Ag Negative SARS-CoV-2 Ag (CV2AG) Negative (NEGATIVE) Imaging Data Chest x-ray: Radiologist's impression: ITS Impressions Chest X-Ray 06/20/25 18:06 IMPRESSION: No acute cardiopulmonary pathology. Impression dictated by: Minor Land M.D. 06/20/2025 6:27 PM Dictation Location: [employer] Electronically authenticated by: [id number] Y Date: 06/20/2025 18:27 Discharge Plan Discharge Chief Complaint: Upper Respiratory Infection Clinical Impression: Upper respiratory infection Patient Disposition: Home, Self-Care Time of Disposition Decision: 18:35 Condition: Good Mode of Transportation: Private Vehicle Prescriptions / Home Meds: New prednisone 10 mg tablet See Rx Instructions .ROUTE .COMPLEX Qty: 30 0RF Rx Instructions: 4 by mouth daily for three days then 3 by mouth daily for three days then 2 by mouth daily for three days then 1 by mouth daily for three days benzonatate 100 mg capsule 100 mg PO TID PRN (Reason: cough) Qty: 20 0RF albuterol sulfate 90 mcg/actuation HFA aerosol inhaler 2 inh inhalation Q4H PRN (Reason: shortness of breath or wheezing) Qty: 8.5 0RF No Action citalopram 40 mg tablet 40 mg PO DAILY buspirone 7.5 mg tablet 7.5 mg PO DAILY cyanocobalamin (vitamin B-12) 1,000 mcg tablet 1,000 mcg PO DAILY ergocalciferol (vitamin D2) 1,250 mcg (50,000 unit) capsule 1,250 mcg PO DAILY omeprazole 40 mg capsule,delayed release(DR/EC) 40 mg PO DAILY Ozempic 1 mg/dose (4 mg/3 mL) pen injector 1 mg SUBCUT .weekly albuterol sulfate 90 mcg/actuation HFA aerosol inhaler 1 inh inhalation Q6H PRN (Reason: shortness of breath or wheezing) Qty: 8.5 0RF methylprednisolone [Medrol (Ghanshyam)] 4 mg tablets,dose pack 4 mg PO DAILY Qty: 21 0RF sulfamethoxazole-trimethoprim [Bactrim DS] 800-160 mg tablet 1 tab PO BID 10 Days Qty: 20 0RF cephalexin 500 mg capsule 500 mg PO QID 10 Days Qty: 40 0RF Print Language: Estonian Instructions: Upper Respiratory Infection (ED) Referrals: [facility] [Primary Care Provider] - 1 week
== END 2025-06-20 18:53 | disposition home or self-care (01) ==
LOC: ER 18:39
PROVIDERS: Emergency Provider Emergency Medicine
DX: J06.9 Acute upper respiratory infection, unspecified (principal); Z87.891 Personal history of nicotine dependence
CPT/HCPCS: 71045; 87804; 87811; 99285